=== PATIENT | female | born 1970 | race Caucasian/White ===

== ENCOUNTER 2018-03-28 00:54 | Outpatient (CLI) | payer MEDICAID, SELFPAY ==
--- NOTE | 2018-03-28 11:13 | DI.MAMMO_ITS ---
SYMPTOMS/DIAGNOSIS: SCREENING, Z12.31 MAMMOGRAM: Mammograms were interpreted according to the usual protocol including computer analysis with CAD system, tomosynthesis and C view imaging. The breast tissue is of moderate radiodensity. There is no mass. There are no suspicious calcifications. There has been no significant interval change when compared with prior images. SUMMARY: No evidence of malignancy, Category I, yearly screening mammography is recommended. Breast density Category B. SA ASSESSMENT OF FINDINGS: Negative. Category 1. Patient will receive a letter notifying them of these results. BI-RADS category B. There are scattered areas of fibroglandular density.
== END 2018-03-28 01:14 ==
PROVIDERS: PCP Nurse Practitioner Family; Visit Provider Nurse Practitioner Family
DX: Z12.31 Encounter for screening mammogram for malignant neoplasm of breast (principal)
CPT/HCPCS: 77063; 77067

== ENCOUNTER 2019-01-22 02:26 | Outpatient (CLI) | payer OTHER, SELFPAY ==
[2019-01-22 12:32] LABS: Hemoglobin A1C 5.5 % (4.5-6.2)
[2019-01-22 12:48] LABS: ALT 30 U/L (12-78); AST 20 U/L (15-37); Albumin 3.8 g/dL (3.4-5.0); Alkaline Phosphatase 62 U/L (46-116); Anion Gap 10.4 mmol/L (3-11); BUN 10 mg/dL (7-18); Bilirubin, Total 0.5 mg/dL (0.2-1.0); CO2 24.6 mmol/L (21.0-32.0); CREATININE 0.77 mg/dL (0.55-1.02); Calcium 8.6 mg/dL (8.5-10.1); Calculated LDL 79 mg/dL; Chloride 108 mmol/L (98-107); Cholesterol 116 mg/dL (50-200); Glucose 100 mg/dL (70-100); HDL Cholesterol 29 mg/dL (40-60); Potassium 4.1 mmol/L (3.5-5.1); Sodium 143 mmol/L (136-145); Total Protein 6.5 g/dL (6.4-8.2); Triglyceride 43 mg/dL (30-150)
== END 2019-01-22 02:46 ==
PROVIDERS: PCP Nurse Practitioner Family; Visit Provider Nurse Practitioner Family
DX: E78.5 Hyperlipidemia, unspecified (principal)
CPT/HCPCS: 36415; 80053; 80061; 83721; 83036

== ENCOUNTER 2019-03-01 13:30 | Outpatient (CLI) | payer OTHER, SELFPAY ==
--- NOTE | 2019-03-01 13:15 | DI.RAD_ITS ---
EXAM: XR KNEE LT 3V AP,LAT,MY INDICATION: X 1 MO LEFT KNEE PAIN,M25.562 COMPARISON: No exams were available for comparison TECHNIQUE: 2D digital imaging was performed. FINDINGS: The bony structures are normally mineralized. Joint space is intact. I could not exclude a tiny joint effusion. There is no evidence of a fracture or dislocation.
== END 2019-03-01 13:50 ==
PROVIDERS: PCP Nurse Practitioner Family; Visit Provider Nurse Practitioner Family
DX: M25.562 Pain in left knee (principal)
CPT/HCPCS: 73562

== ENCOUNTER 2019-04-05 01:06 | Outpatient (CLI) | payer OTHER, SELFPAY ==
--- NOTE | 2019-04-05 07:25 | DI.MAMMO_ITS ---
EXAM: MG MAMMO SCREENING CLINICAL HISTORY: screening,z12.39, preventive health TECHNIQUE: Mammograms were interpreted according to the usual protocol including computer analysis w [facility] CAD system, tomosynthesis and C-view imaging.to the usual protocol including computer analysis wi CAD system, tomosynthesis and C-view imaging. FINDINGS: The breasts are of moderate density with fairly symmetrical distribution of fibroglandular tissue. N o dominant mass or clumped microcalcification is identified in either breast. Current examination is compared with previous examinations including March 2018 and there has been no gross interval soni ge in appearance in comparison with the previous studies. IMPRESSION: No specific evidence of malignancy at this time. Routine screening examinations are suggested at yea rly intervals due to the family history of breast carcinoma. Category 1. Breast density, category B. BI-RADS Cat 1 - Negative. Breast Density - Category B - Scattered areas of fibroglandular density.
== END 2019-04-05 01:26 ==
PROVIDERS: PCP Nurse Practitioner Family; Visit Provider Nurse Practitioner Family
DX: Z12.31 Encounter for screening mammogram for malignant neoplasm of breast (principal); Z80.3 Family history of malignant neoplasm of breast
CPT/HCPCS: 77063; 77067

== ENCOUNTER 2019-08-02 10:04 | Emergency (ER) | payer OTHER, SELFPAY ==
[2019-08-02 10:09] VITALS: BP 158/79; PULSE 88; RESP 18; TEMP 36.6; O2SAT 100
--- NOTE | 2019-08-02 10:15 | DI.RAD_ITS ---
EXAM: XR ELBOW LT COMPLETE INDICATION: struck posterior aspect one week ago. COMPARISON: No exams were available for comparison TECHNIQUE: 2D digital imaging was performed. FINDINGS: No fracture or dislocation is seen. No joint effusion is identified. There are no significant dege nerative changes. IMPRESSION: Negative left elbow. DATA REPOSITORY: RADIATION DOSE DELIVERED:
--- NOTE | 2019-08-02 10:19 | ED.GENADUL_ITS ---
Discharge Plan Disposition Patient Disposition: HOME Condition: Good Discharge Details Chief Complaint: Orthopedic Clinical Impression: Neuritis of left ulnar nerve, Medial epicondylitis of left elbow Primary Care Provider: Coreen Stevenson ED Provider: Olya Porter Home Meds and New Rx's Prescriptions: Continued triamcinolone acetonide 0.1 % cream 1 applic TP BID PRN (Reason: eczema) Qty: 80 RF: 4 norethindrone acetate [Aygestin] 5 mg tablet 2.5 mg PO DAILY Qty: 45 RF: 4 rosuvastatin 10 mg tablet 10 mg PO DAILY Qty: 90 RF: 4 atenolol 25 mg tablet 25 mg PO DAILY Qty: 90 RF: 4 Discharge Instructions Instructions: Cubital Tunnel Syndrome (ED), Tendinitis (ED) Additional Instructions: Encourage rest, ice, elevation. Tylenol and ibuprofen as needed for discomfort. Please continue with brace will pain persist. Please take Aleve twice daily to help with the inflammation for the next week. Follow-up with primary care in the next 1 to 2 weeks if not improving. If you develop new or worsening symptoms please seek care urgently once again. Referrals: Coreen Stevenson, WIND T[employer]NEL ENGINEER [Primary Care Provider] - Medical Decision Making Patient is a pleasant 49-year-old [id number] female presents today with chief complaint of left elbow pain. She reports that 1 week ago she was at work when she stumbled backwards and struck her left elbow against a metal railing. Since that time, she been having medial sided pain that runs some ulnar-sided hand. States that this radiating discomfort is been bothering her the most. She continues to work and has not had any limitation in her ADLs. She denies any fevers or chills. Denies other injury the time of the incident. On exam, patient is resting comfortably. She has full range of motion with no notable deformity or swelling. She does have discomfort with full flexion of the elbow. Has discomfort with supination pronation against resistance. Sharp and dull testing is intact. Obstetric Anaesthetist strength is intact. She is tender directly over the ulnar nerve in the ulnar nerve distribution of the arm and hand. Symptoms are most consistent with ulnar neuritis and tennis elbow. However, given the traumatic onset and persistent posterior pain, I do feel that imaging is appropriate. FINDINGS: No fracture or dislocation is seen. No joint effusion is identified. There are no significant degenerative changes. IMPRESSION: Negative left elbow. Discussed these findings with the patient. Advised anti-inflammatory for the next week. Encourage rest, ice, elevation. Advised follow-up with primary care next 1 to 2 weeks if not improving. We will fit her with a wrist brace as pain is much worse with movement of the wrist. All of her questions and concerns were addressed and she is agreement this plan. HPI General Mode of arrival: ambulatory . Date/Time Provider Initiated Documentation: 08/02/19 10:07 . Limitations to Documentation: no limitations . Information obtained by: patient and RN notes reviewed . History of Present Illness 49 year old F presents to the emergency department with the chief complaint of left elbow pain, described as mild, with intensity rated at 2. Quality is described as aching, and is localized to the left and upper extremity. Patient extremity (into ulnar side of hand). Patient started experiencing this week(s) (1) and it has been constant. Immobilization improves symptom(s), Movement worsens symptoms . Patient notes no other symptoms.. Patient did receive the following treatments prior to arrival, none Related Data Home Medications Medication Instructions Recorded Confirmed triamcinolone acetonide 0.1 % 1 applic TP BID PRN #80 gm 08/29/18 08/02/19 topical cream norethindrone acetate 5 mg tablet 2.5 mg PO DAILY #45 tab-cap 11/15/18 08/02/19 rosuvastatin 10 mg tablet 10 mg PO DAILY #90 tab 11/15/18 08/02/19 atenolol 25 mg tablet 25 mg PO DAILY #90 tab-cap 02/25/19 08/02/19 Previous Rx's Medication Instructions Recorded triamcinolone acetonide 0.1 % 1 applic TP BID PRN #80 gm 08/29/18 topical cream norethindrone acetate 5 mg tablet 2.5 mg PO DAILY #45 tab-cap 11/15/18 rosuvastatin 10 mg tablet 10 mg PO DAILY #90 tab 11/15/18 atenolol 25 mg tablet 25 mg PO DAILY #90 tab-cap 02/25/19 Allergies Allergy/AdvReac Type Severity Reaction Status Date / Time No Known Allergies Allergy Unverified 08/02/19 10:13 General Stated Complaint: Orthopedic MARIN: 3 Review of Systems Constitutional Constitutional: Reports as per HPI, Denies chills, Denies fever(s), Denies headache(s) and Denies weakness ENT Ears, Nose, Mouth, and Throat: Denies headache(s) Cardiovascular Cardiovascular: Reports as per HPI Respiratory Respiratory: Reports as per HPI and Denies cough Musculoskeletal Musculoskeletal: Reports as per HPI and Denies tingling Integumentary/Breasts Skin/Breast: Reports as per HPI, Denies rash and Denies wounds Neurologic Neurologic: Reports as per HPI, Denies headache(s), Denies tingling, Denies paresthesias and Denies weakness [facility] Medical History Atopic dermatitis (Chronic) Cigarette smoker (Chronic) Essential hypertension (Chronic) Heavy menstrual bleeding (Chronic) Hyperlipidemia (Chronic) Surgical History History of bilateral tubal ligation (Acute ~1991) Family History (Updated 03/01/19 @ 13:55 by Coreen Stevenson NP) Mother Hyperlipidemia Alcohol abuse Depression Hypertension Father Heart disease Hyperlipidemia Stroke Alcohol abuse Myocardial infarction x 4 Hypertension Type 2 diabetes mellitus COPD (chronic obstructive pulmonary disease) Sister Alcohol abuse Substance abuse Hypertension Sister Alcohol abuse Hypertension Brother Substance abuse Daughter Anxiety Daughter Depression Paternal Grandfather No problems noted. 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 Pets and animals: No Sexually active: Yes Do you think of yourself as: straight/heterosexual Current gender identity: female What is your relationship status?: How often do you talk on the phone with friends or family?: three or more times per week How often do you get together with friends or relatives?: decline to answer How often do you attend judaism or mormonism services?: decline to answer Do you belong to any clubs or organized social groups?: no Panel score (0-1 are the most socially isolated patients): 2 What type of physical activity do you participate in: decline to answer Duration: decline to answer Frequency: decline to answer Estela/Baptist: None Special estela needs: No Seatbelt use: always Drive intox or ride w/intox commercial driver's license driver: No Do you feel safe at home: Yes Do you feel safe in your relationship?: Yes Female Reproductive History Menstrual control method: permanent sterilization (BTL) History History 2 Para 2 Hx # Term Pregnancies Multiple births Hx # Pregnancies Ectopic pregnancies AB induced Hx Number of Living Children 2 AB spontaneous Exam Const General: cooperative, healthy appearing, comfortable, no acute distress, well developed and well groomed Nutritional Appearance: average body habitus and well nourished Orientation: alert and awake Resp Effort & Inspection: normal respiratory effort, able to speak in complete sentences and no respiratory distress Cardio Rate: regular rate Rhythm: regular rhythm Skin General skin exam: no rashes or lesions noted Lesions: no lesions Rashes: no rashes Trauma: no lacerations or abrasions Neuro General: alert and awake Cognition: normal cognition Speech: speech normal Gait: normal gait Motor: muscle tone normal throughout Sensory Exam: no sensory deficits noted Extrem General: normal to inspection, full ROM and normal capillary refill Left upper extremity: normal to inspection, full ROM, normal capillary refill, no joint enlargement, elbow/forearm Details: normal to inspection, tenderness Location: of the olecranon and of the medial epicondyle, normal ROM and distal pulses intact; no swelling, no unusual warmth, no abrasions, no lacerations, no ecchymosis, no crepitus and no deformity and wrist Details: normal to inspection and normal ROM; no tenderness and no swelling Psych Appearance: grossly normal and well kempt Mental Status: mental status grossly normal Speech and Movement: speech and movement normal Course Vital Signs Vital signs: Vital Signs Temperature 36.6 C 08/02/19 10:09 Pulse 88 08/02/19 10:09 Respiratory Rate 18 08/02/19 10:09 Blood Pressure 158/79 H 08/02/19 10:09 Pulse Oximetry 100 08/02/19 10:09 Temperature 36.6 C 08/02/19 10:09 Temperature Source Temporal Artery Scan 08/02/19 10:09 Pulse 88 08/02/19 10:09 Respiratory Rate 18 08/02/19 10:09 Respiratory Effort Non-Labored 08/02/19 10:16 Blood Pressure 158/79 H 08/02/19 10:09 Blood Pressure Position Sitting 08/02/19 10:09 Pulse Oximetry 100 08/02/19 10:09 Oxygen Delivery Method Room Air 08/02/19 10:09 Oxygen Flow Rate 0 08/02/19 10:09 Pain Level 2 08/02/19 10:09
--- NOTE | 2019-08-02 15:39 | PDOC.ERCMPRO ---
- If Service Date Differs Date of service: 08/02/19 Time of Service: 15:39 Care Management Progress Note CM meets with patient to assist her in completing an insurance claim form and in having it signed by ED provider.
== END 2019-08-02 11:29 | disposition home or self-care (01) ==
PROVIDERS: Emergency Provider Physician Assistant; PCP Nurse Practitioner Family
DX: M77.02 Medial epicondylitis, left elbow (principal); G56.22 Lesion of ulnar nerve, left upper limb; I10 Essential (primary) hypertension
CPT/HCPCS: 99283; 73080; L3908

== ENCOUNTER 2020-03-09 13:11 | Outpatient (REF) | payer OTHER, SELFPAY ==
[2020-03-09 14:29] LABS: Anion Gap 6.8 mmol/L (3-11); BUN 11 mg/dL (7-18); CO2 29.2 mmol/L (21.0-32.0); CREATININE 0.69 mg/dL (0.55-1.02); Calcium 9.2 mg/dL (8.5-10.1); Calculated LDL 92 mg/dL (<100); Chloride 108 mmol/L (98-107); Cholesterol 137 mg/dL (<200); Glucose 70 mg/dL (74-106); HDL Cholesterol 36 mg/dL (40-60); Potassium 4.4 mmol/L (3.5-5.1); Sodium 144 mmol/L (136-145); TSH 0.79 uIU/mL (0.36-3.74); Triglyceride 48 mg/dL (<150)
[2020-03-09 14:49] LABS: FREE T4 1.14 ng/dL (0.76-1.46)
== END 2020-03-09 13:31 ==
LOC: LBN 13:11
PROVIDERS: PCP Nurse Practitioner Family; Visit Provider Nurse Practitioner Family
DX: I10 Essential (primary) hypertension (principal); R53.83 Other fatigue; E78.5 Hyperlipidemia, unspecified
CPT/HCPCS: 80048; 80061; 84439; 84443

== ENCOUNTER 2020-04-06 00:34 | Outpatient (CLI) | payer OTHER, SELFPAY ==
--- NOTE | 2020-04-06 06:30 | DI.MAMMO_ITS ---
EXAM: MG MAMMO SCREENING CLINICAL HISTORY: screening,Z12.39 TECHNIQUE: Mammograms were interpreted according to the usual protocol including computer analysis w [employer] CAD system, tomosynthesis and C-view imaging. COMPARISON: FINDINGS: The breasts are heterogeneously dense. There is no dominant mass or clumped microcalcification ident ified in either breast. The current examination is compared with previous examinations including Mar and there has been no gross interval change in appearance in comparison with the prior stud ies. IMPRESSION: No specific evidence of malignancy at this time. Routine screening examinations are suggested at yea rly intervals in this age group according to the ACS ACR guidelines. BI-RADS Category 1 - Negative Breast Density - Category C - Heterogeneously dense
== END 2020-04-06 00:54 ==
PROVIDERS: PCP Nurse Practitioner Family; Visit Provider Nurse Practitioner Family
DX: Z12.31 Encounter for screening mammogram for malignant neoplasm of breast (principal)
CPT/HCPCS: 77063; 77067

== ENCOUNTER 2020-04-10 15:59 | Outpatient (REF) | payer OTHER, SELFPAY ==
[2020-04-10 17:24] LABS: Abs Immature Grans 0.01 10^3/uL (0.0-0.06); Absolute Basophil Count 0.07 10^3/uL (0.0-0.2); Absolute Eosinophil Count 0.14 10^3/uL (0.0-0.7); Absolute Monocyte Count 0.54 10^3/uL (0.1-0.8); Absolute Neutrophil Count 4.58 10^3/uL (1.2-6.7); Basophils % 0.9; Eosinophils % 1.7; HCT 45.5 % (36.0-46.0); HGB 15.1 g/dL (11.2-15.7); Immature Grans % 0.1; Lymphocytes % 34.4; MCH 32.5 pg (27.0-33.0); MCHC 33.2 % (32.0-36.0); MCV 97.8 fL (80-95); Monocytes % 6.6; Neutrophils % 56.3; Nucleated RBC 0 %; Platelet Count 241 10^3/uL (130-400); RBC 4.65 10^6/uL (3.93-5.22); RDW 12.1 % (11.7-14.6); RDW-SD 43.8 fL; WBC 8.14 10^3/uL (4.4-10.8)
== END 2020-04-10 16:19 ==
LOC: LBN 15:59
PROVIDERS: PCP Nurse Practitioner Family; Visit Provider Nurse Practitioner Family
DX: R10.13 Epigastric pain (principal)
CPT/HCPCS: 85025

== ENCOUNTER 2020-04-13 02:18 | Outpatient (CLI) | payer OTHER, SELFPAY ==
--- NOTE | 2020-04-13 06:45 | DI.US_ITS ---
EXAM: US ABDOMEN CLINICAL HISTORY: Epigastric pain x 1mo, r/o charity,r10.13 TECHNIQUE: Ultrasound abdomen performed using standard protocol. COMPARISON: No exams were available for comparison FINDINGS: ABDOMINAL AORTA AND IVC: Visualized portions normal caliber. PANCREAS: Normal where visualized. LIVER: Normal. Hepatopedal flow in the Portal Vein. The liver measures 11.9 cm in length. GALLBLADDER: No evidence of cholelithiasis. No evidence of wall thickening. No pericholecystic fluid identified. Artifact is seen in the wall consistent sonographically with adenomyomatosis. BILIARY SYSTEM: Common bile duct measures < 7 mm. No intrahepatic biliary ductal dilation. SHOEMAKER'S SIGN: Negative. KIDNEYS: Kidneys are symmetric in size. No evidence of renal calculi. No evidence of hydronephrosis. No renal mass or cyst identified. SPLEEN: Not enlarged. ASCITES: None seen. IMPRESSION: 1. No evidence of cholelithiasis or biliary ductal dilatation. 2. Reverberation artifact in the wall of the gallbladder consistent sonographically with adenomyomato sis. DATA REPOSITORY:
== END 2020-04-13 02:38 ==
PROVIDERS: PCP Nurse Practitioner Family; Visit Provider Nurse Practitioner Family
DX: R10.13 Epigastric pain (principal)
CPT/HCPCS: 76700

== ENCOUNTER 2020-04-27 03:39 | Outpatient (CLI) | payer OTHER, SELFPAY ==
[2020-04-28 11:41] LABS: SARS-CoV-2 RNA Not Detected (NotDetected); SARS-CoV-2 RNA Source Nasal/Nares
== END 2020-04-27 03:59 ==
PROVIDERS: PCP Nurse Practitioner Family; Visit Provider Surgery
DX: Z01.818 Encounter for other preprocedural examination (principal)
CPT/HCPCS: U0003

== ENCOUNTER 2020-04-30 05:56 | Day surgery (SDC) | payer OTHER, SELFPAY ==
[2020-04-30 06:10] VITALS: BP 116/88; PULSE 75; RESP 18; TEMP 36.7; O2SAT 98
[2020-04-30] MEDS: Lactated Ringers 1,000 ML 80 ML IV (06:35)
--- NOTE | 2020-04-30 08:03 | BOWEL_PTH ---
PATIENT: Tasha Mcmahan LOC: [facility] U#:[id number] AGE/SX: 50/F ROOM: RE04/30/[address]: Leah Kumar : 1970 BED: DIS: 04/30/2020 SPEC #: [id number] RECD: 04/30/20 12:52 STATUS: JENNIFER MEDRANO #: [id number] MARLEE: 04/30/20 08:[address]: Leah Kumar DEPT: Surgical Specimen RECD BY: Fawn Hardin ENTERED: 04/30/20 12:58 SP TYPE: Bowel OTHR DR: Coreen Stevenson, YELITZA Tissues: 1 - BIOPSY BOWEL 2 - STOMACH BIOPSY 3 - STOMACH BIOPSY 4 - ESOPHAGUS BIOPSY 5 - ESOPHAGUS BIOPSY 6 - BIOPSY BOWEL 7 - BIOPSY BOWEL 8 - BIOPSY BOWEL 9 - BIOPSY BOWEL 10 - BIOPSY BOWEL Procedures: GROSS AND MICRO LEVEL 4 Comments: [id number]
--- NOTE | 2020-04-30 08:33 | W.PM.DSUDISC ---
Discharge Plan Disposition Patient Disposition: HOME Condition: Good Discharge Details Reason For Visit: EGD and CE Attending Provider: Leah Kumar Primary Care Provider: Coreen Stevenson Home Meds and New Rx's Prescriptions: Continued Chantix Starting Month Box 0.5 mg (11)- 1 mg (42) tablets,dose pack See Rx Instructions PO DIRECTED Qty: 53 RF: 0 omeprazole 40 mg capsule,delayed release(DR/EC) 40 mg PO DAILY Qty: 90 RF: 0 triamcinolone acetonide 0.1 % cream 1 applic TP BID PRN (Reason: eczema) Qty: 80 RF: 4 rosuvastatin 10 mg tablet 10 mg PO DAILY Qty: 90 RF: 4 atenolol 25 mg tablet 25 mg PO DAILY Qty: 90 RF: 4 sucralfate 1 gram tablet 1 g PO Q6H Qty: 336 RF: 0 Discontinued bisacodyl [Dulcolax (bisacodyl)] 5 mg tablet,delayed release (DR/EC) 5 mg PO ONCE Qty: 4 RF: 0 polyethylene glycol 3350 17 gram/dose powder 17 g PO ONCE Qty: 238 RF: 0 Discharge Instructions Additional Instructions: Findings: hiatal hernia esophagitis normal colon Continue with lifestyle modifications: no alcohol, tobacco products, Aspirin or NSAID's (ibuprofen, Motrin, Naprosyn, aleve, etc), soda pop/any carbonated beverages, caffeine (including tea & chocolate), and acidic foods, (tomatoes, citrus, onions, peppermints) spicy foods. Do not lie down for 30 minutes after eating, and do not eat 2 hours prior to bedtime. Avoid wearing tight fitting clothing/ belts Follow up:2-3 wks Please call if you develop: fevers >101.5 Nausea or Vomiting Abdominal pain that is not transient DAY SURGERY UNIT POST COLONOSCOPY INSTRUCTIONS 1. Because there will be medication in your system for the next 24 hours, you may feel a little sleepy. Your coordination will be affected. Therefore: a. Do not drive or operate dangerous equipment for 24 hours. b. Do not drink alcohol beverages for 24 hours (not even beer). c. Plan to go home and rest for the day. 2. Generally there are no restrictions on your activity after a day or so has gone by, but you may feel a bit fatigued for a few days. 3 After you arrive home you may have a light meal and return to a normal diet as you can tolerate it without feeling sick to your stomach. 4. After surgery, you may feel pain or discomfort. This should be only transient, but if it persists please contact your doctor. 5. If there are any questions regarding the findings of your procedure, please feel free to contact your doctor. 6. If you are unable to contact your doctor with a problem, contact the hospital at [phone]. 7. Continue all your regular medications unless directed otherwise. I understand the above instructions and have no questions. Signature of Patient or Responsible Adult Escort Date/Time Name of Responsible Adult Escort Signature of Nurse Date/Time Activity:: no lifting over 20#'s or strenuous activity x 24hrs Diet:: small light meals x 24 hrs Discharge Orders Discharge Orders: Discharge Order (Routine); Ordered 04/30/20 Ordered By: Leah Kumar DS: Diagnosis Discharge Diagnosis (1) Acute diarrhea: Status: Acute (2) Postprandial RUQ pain: Status: Acute (3) Cigarette smoker: Status: Chronic (4) GERD (gastroesophageal reflux disease): Status: Chronic (5) Erosive esophagitis: Status: Acute
--- NOTE | 2020-04-30 08:37 | COLE_ITS ---
Date of service: 04/30/20 Time of Service: 08:37 Colonoscopy Report Date of procedure: 04/30/20 Pre-op diagnosis general: ruq pain/GERD Post-op diagnosis procedure note: other (hiatal hernia/esophagitis-poss barett's, path pd ) Procedure: egd + Bx Surgeon: Leah Kumar Anesthesia proc note operative: GETA Estimated blood loss (mL): 1 Pathology: other Complications: None Disposition: PACU Procedure Description: After informed consent was obtained the patient was take to the procedure room and placed in a supine position. Monitors were applied and a time out was done. The patients name, date of , procedure type, allergies to medications and metal in their body was reviewed. A bite block was placed and the patient was sedated. Once sedated and comfortable the gastroscope was advanced through the oropharynx which was grossly normal into the esophagus. The proximal and mid-esophagus were nl. In the distal esophagus there was irrgular/edematous and x3 ttongues of what appears to be arrieta's- 2cm each noted. The scope was advanced into the stomach and through the pylorus into the 3rd portion of the duodenum. The duodenum was noted to be nl. Biopsies were done. The scope was retracted back into the stomach and biopsies were done to rule out H. pylori. There were ulcers/polyp/gastritis. The scope was retroflexed. The cardia and fundus were noted to be normal. There small a hiatal hernia noted. The scope was retracted back into the esophagus and biopsies were done of the GE junction to rule out Arrieta's. The Z line was regular. The GE junction was at 37-38 cm. The scope was removed and the patient was woken up and taken back to [facility] in stable condition. Follow up:
--- NOTE | 2020-04-30 08:40 | COLE_ITS ---
Date of service: 04/30/20 Time of Service: 08:40 Colonoscopy Report Date of procedure: 04/30/20 Pre-op diagnosis general: CRC screening/chronic diarrhea Post-op diagnosis procedure note: same Procedure: bx taken Surgeon: Leah Kumar Anesthesia proc note operative: GETA Estimated blood loss (mL): 1 Pathology: other Disposition: same day Prep: Miralax/Dulcolax Retraction Time: 10 mins Procedure Description: After informed consent was obtained the patient was taken to the procedure room and placed in a left decubitous position. Monitors were applied and a time out was done. The patients name, date of , procedure, allergies to medications and metal in their body was reviewed. The patient was then sedated. Once sedated and comfortable a rectal exam was done. External exam: hemorrdial tags. Internal exam revealed a normal sphincter tone and no palpable masses. The scope was then introduced and retrofelexed. No internal hemorrhoids were identified. The scope was then advanced to the cecum w/out difficulty. The TI and appendiceal orifice were identified. The prep was good. The scope was then slowly retracted over 10 minutes back into the rectum. no polyps/avm's/divert icula. bx were done- 90/790/50/20cm & rectum. The scope was removed and the patient was woken up and taken back to Same day surgery in stable condition. The patient tolerated the procedure well and there were no immediate complications. Follow up: The patient should follow up in 10 years unless they develop changes in bowel habits or other new gastrointestinal complaints.
[2020-04-30 08:55] VITALS: BP 135/83; PULSE 62; RESP 16; TEMP 36.4; O2SAT 100
--- NOTE | 2020-05-04 20:37 | ENDO_ITS ---
Date of service: 04/30/20 Time of Service: 11:38 Endoscopy Report DATE OF PROCEDURE: 04/30/20 PRE-OP DIAGNOSIS: RUQ pain/GERD POST-OP DIAGNOSIS: other (hiatal hernia/esophagitis-poss Barett's, path pd.) SURGEON: Leah Kumar ANESTHESIA: GETA ESTIMATED BLOOD LOSS: 1 PATHOLOGY: other COMPLICATIONS: None DISPOSITION: same day FINDINGS: After informed consent was obtained the patient was take to the procedure room and placed in a supine position. Monitors were applied and a time out was done. The patients name, date of , procedure type, allergies to medications and metal in their body was reviewed. A bite block was placed and the patient was sedated. Once sedated and comfortable the gastroscope was advanced through the oropharynx which was grossly normal into the esophagus. The proximal and mid-esophagus were nl. In the distal esophagus there was irrg ular/edematous and x3 ttongues of what appears to be arrieta's- 2cm each noted. The scope was advanced into the stomach and through the pylorus into the 3rd portion of the duodenum. The duodenum was noted to be nl. Biopsies were done. The scope was retracted back into the stomach and biopsies were done to rule out H. pylori. There were ulcers/polyp/gastritis. The scope was retroflexed. The cardia and fundus were noted to be normal. There small a hiatal hernia noted. The scope was retracted back into the esophagus and biopsies were done of the GE junction to rule out Arrieta's. The Z line was regular. The GE junction was at 37-38 cm. The scope was removed and the patient was woken up and taken back to [facility] in stable condition.
== END 2020-04-30 09:30 | disposition home or self-care (01) ==
PROVIDERS: PCP Nurse Practitioner Family; Visit Provider Surgery
PROC: (CPT 45380; principal; 2020-04-30 07:30)
DX: Z12.11 Encounter for screening for malignant neoplasm of colon (principal); K20.90 Esophagitis, unspecified without bleeding; K44.9 Diaphragmatic hernia without obstruction or gangrene; I10 Essential (primary) hypertension; E78.5 Hyperlipidemia, unspecified; F17.210 Nicotine dependence, cigarettes, uncomplicated
CPT/HCPCS: 45380; 43239; 88305; J2001; J2405

== ENCOUNTER 2020-05-06 00:34 | Outpatient (CLI) | payer OTHER, SELFPAY ==
--- NOTE | 2020-05-06 06:45 | DI.NM_ITS ---
EXAM: NM HEPATOBILIARY CCK GRP CLINICAL HISTORY: nausea/bloating/nl US,POSTPRANDIAL RUQ PAIN,R10.11,R19.7. COMPARISON: No exams were available for comparison EXAMINATION: Hepatic biliary scan was performed with intravenous infusion of 4.8 millicuries of tech netium 99 labeled mebrofenin. 1.4 micrograms of cholecystokinin was administered following identification of gallbladder uptake. FINDINGS: Following infusion of radiopharmaceutical, there is prompt homogeneous hepatic uptake and prompt upta ke in the gallbladder, bile ducts,, and small intestine. Following injection of cholecystokinin, the gallbladder ejection fraction is calculated at 86 percent which is in the normal range. IMPRESSION: Normal CCK HIDA scan.
[2020-05-06] MEDS: Sincalide 5 MCG VIAL 1.4 MCG IJ (11:38)
== END 2020-05-06 00:54 ==
PROVIDERS: PCP Nurse Practitioner Family; Visit Provider Surgery
DX: R10.11 Right upper quadrant pain (principal); R19.7 Diarrhea, unspecified
CPT/HCPCS: 78227

== ENCOUNTER 2020-07-12 12:45 | Emergency (ER) | payer OTHER, SELFPAY ==
[2020-07-12 12:51] VITALS: BP 143/73; PULSE 91; RESP 20; TEMP 36.6; O2SAT 98
--- NOTE | 2020-07-12 13:15 | DI.RAD_ITS ---
EXAM: XR ANKLE RT COMPLETE CLINICAL HISTORY: Fall, pain. TECHNIQUE: 2D digital imaging was performed. COMPARISON: No exams were available for comparison FINDINGS: BONES: No acute fracture is present. No bony destructive lesion is seen. JOINTS: The ankle mortise is normally aligned. SOFT TISSUE: Normal. IMPRESSION: Unremarkable radiographs of the right ankle. DATA REPOSITORY: RADIATION DOSE DELIVERED:
--- NOTE | 2020-07-12 13:16 | W.ED.GENAD ---
Discharge Plan Disposition Patient Disposition: HOME Condition: Stable Discharge Details Clinical Impression: Right ankle sprain Primary Care Provider: Coreen Stevenson ED Provider: Megan Perry Home Meds and New Rx's Prescriptions: Continued omeprazole 20 mg capsule,delayed release(DR/EC) 40 mg PO DAILY Qty: 180 RF: 4 Chantix Starting Month Box 0.5 mg (11)- 1 mg (42) tablets,dose pack See Rx Instructions PO DIRECTED Qty: 53 RF: 0 triamcinolone acetonide 0.1 % cream 1 applic TP BID PRN (Reason: eczema) Qty: 80 RF: 4 rosuvastatin 10 mg tablet 10 mg PO DAILY Qty: 90 RF: 4 atenolol 25 mg tablet 25 mg PO DAILY Qty: 90 RF: 4 sucralfate 1 gram tablet 1 g PO Q6H Qty: 336 RF: 0 Discharge Instructions Instructions: Ankle Sprain (ED), Acute Wounds (ED) Additional Instructions: Rest, ice, compression, elevation. Wear splint to ankle for comfort. Keep wound clean and dry. Return for any signs of infection including increased redness, swelling, drainage, fever or any concerns. Follow up with primary care provider in 3-5 days. Return to ED sooner if any worsening or concerns. Increase oral fluids. Please take Tylenol or Ibuprofen with food every 4-6 hours as needed for pain and swelling. Stand Alone Forms: Work Release Referrals: Coreen Stevenson NP [Primary Care Provider] - Discharge Data Discharge Date/Time-TO BE ENTERED AT DEPARTURE: 07/12/20 14:21 Medical Decision Making 50-year-old female presents with mechanical fall around 6:00 this morning. Patient states she lost her footing twisted her right ankle fell down landing on her left knee. She sustained an abrasion noted to her left knee, she did go to work after fall. She applied an Robel wrap prior to arrival to her right ankle. She is complaining of lateral malleolus tenderness with palpation. No obvious deformity noted. She does have some swelling noted to the lateral malleolus. She has an abrasion noted to the anterior left leigh. No crepitus palpated to her left knee she has been ambulatory on knee since injury. She reports being up-to-date on her tetanus shot within the last 5 to 10 years. She did take some Tylenol around 6:00 this morning. Imaging protocol: XR Right ankle. Views: 3 or more views. COMPARISON: No relevant prior studies available. FINDINGS: Bones/joints: There is no evidence of acute fracture.There is no evidence of malalignment or dislocation. Soft tissues: Normal. IMPRESSION: There is no evidence of acute fracture.There is no evidence of malalignment or dislocation. Thank you for allowing us to participate in the care of your patient. Dictated and Authenticated by: Ania Diaz MD Patient was placed in a stirrup air splint to her ankle wound care was performed by technical staff assistant to the abrasion to her left knee. Discussed home care including rest ice compression elevation. Patient verbalized understanding. She remained hemodynamically stable throughout stay. This text was generated using Loc[employer] dictation system, please disregard any oddities of phrase or misspellings. HPI General Mode of arrival: ambulatory. Date/Time Provider Initiated Documentation: 07/12/20 12:58. Limitations to Documentation: no limitations. Information obtained by: patient. HPI Narrative: 50-year-old female presents with mechanical fall around 6:00 this morning. Patient states she lost her footing twisted her right ankle fell down landing on her left knee. She sustained an abrasion noted to her left knee, she did go to work after fall. She applied an Robel wrap prior to arrival to her right ankle. She is complaining of lateral malleolus tenderness with palpation. No obvious deformity noted. She does have some swelling noted to the lateral malleolus. She has an abrasion noted to the anterior left leigh. No crepitus palpated to her left knee she has been ambulatory on knee since injury. She reports being up-to-date on her tetanus shot within the last 5 to 10 years. She did take some Tylenol around 6:00 this morning. Related Data Home Medications Medication Instructions Recorded Confirmed triamcinolone acetonide 0.1 % 1 applic TP BID PRN #80 gm 09/02/19 07/12/20 topical cream atenolol 25 mg tablet 25 mg PO DAILY #90 tab-cap 01/27/20 07/12/20 rosuvastatin 10 mg tablet 10 mg PO DAILY #90 tab 01/27/20 07/12/20 sucralfate 1 gram tablet 1 g PO Q6H #336 tab 04/16/20 07/12/20 omeprazole 20 mg capsule,delayed 40 mg PO DAILY #180 cap 05/11/20 07/12/20 release varenicline 0.5 mg (11)-1 mg (42) See Rx Instructions PO DIRECTED 05/11/20 05/13/20 tablets in a dose pack #53 dose pk Previous Rx's Medication Instructions Recorded triamcinolone acetonide 0.1 % 1 applic TP BID PRN #80 gm 09/02/19 topical cream atenolol 25 mg tablet 25 mg PO DAILY #90 tab-cap 01/27/20 rosuvastatin 10 mg tablet 10 mg PO DAILY #90 tab 01/27/20 sucralfate 1 gram tablet 1 g PO Q6H #336 tab 04/16/20 omeprazole 20 mg capsule,delayed 40 mg PO DAILY #180 cap 05/11/20 release varenicline 0.5 mg (11)-1 mg (42) See Rx Instructions PO DIRECTED 05/11/20 tablets in a dose pack #53 dose pk Allergies Allergy/AdvReac Type Severity Reaction Status Date / Time No Known Allergies Allergy Unverified 07/12/20 13:34 General Stated Complaint: Orthopedic MARIN: 4 Review of Systems Narrative: Constitutional: Negative for weight loss, alert and oriented, well groomed, normal body habitus, appears comfortable. HEENT: Denies trauma, headaches, blurry vision, nasal discharge, sore throat, trouble swallowing. All systems reviewed & are unremarkable except as noted in HPI and below Musculoskeletal Musculoskeletal: Reports arthralgias and Reports joint swelling (Right ankle, right knee abrasion) [facility] Medical History Abnormal uterine bleeding Acute diarrhea Atopic dermatitis Cigarette smoker Erosive esophagitis Essential hypertension GERD (gastroesophageal reflux disease) Hyperlipidemia Postprandial RUQ pain Surgical History History of bilateral tubal ligation (~1991) History of colonoscopy (~04/30/20) Stoiber, normal History of esophagogastroduodenoscopy (EGD) (~04/30/20) Family History Mother Hyperlipidemia Alcohol abuse Depression Hypertension Father Heart disease Hyperlipidemia Stroke Alcohol abuse Myocardial infarction x 4 Hypertension Type 2 diabetes mellitus COPD (chronic obstructive pulmonary disease) Sister Alcohol abuse Substance abuse Hypertension Sister Alcohol abuse Hypertension Brother Substance abuse Daughter Anxiety Daughter Depression Paternal Grandfather No problems noted. Paternal Grandmother Hyperlipidemia Hypertension Heart disease Maternal Grandfather Alcohol abuse Maternal Grandmother , In her 50s of [place] Hypertension Hyperlipidemia Type 2 diabetes mellitus Heart disease Stroke Myocardial infarction Social History Smoking/Tobacco Use Status: Current every day Tobacco Type: cigarettes Tobacco: How many years used: 20 Second Hand Exposure: Yes Smoking risk assessment performed?: Yes Alcohol Intake: never Drug use: Never Substance use type: does not use Caregiver/Support person: No Household members: spouse Housing: house Communication Needs: None current occupation: [employer] Pets and animals: No Sexually active: Yes Do you think of yourself as: straight/heterosexual Current gender identity: female What is your relationship status?: How often do you talk on the phone with friends or family?: three or more times per week How often do you get together with friends or relatives?: decline to answer How often do you attend zoroastrianism or amish services?: decline to answer Do you belong to any clubs or organized social groups?: no Panel score (0-1 are the most socially isolated patients): 2 What type of physical activity do you participate in: decline to answer Duration: decline to answer Frequency: decline to answer Estela/Sikhism: None Special estela needs: No Seatbelt use: always 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 Appears stated age. Normal body habitus. Head: Normocephalic, no trauma. Eyes: Pupils PERRLA, Red reflex noted, EOM's intact. Eyelids symmetrical without lesions, discharge, or swelling. ENT: Bilateral TM's WNL, External ear normal to inspection, no mastoid TTP, swelling, or erythema, Nasal turbinates WNL, no nasal discharge. Normal dentition, Posterior pharynx WNL, no exudate. Chest: RRR, Normal S1, S2, distal pulses intact. Resp: Lungs clear to auscultation bilaterally, no wheezes, rales, or rhonchi. Musculoskeletal: Normal gait, 5/5 strength to all four extremities. Right lateral malleolus tenderness and swelling with palpation. Has a abrasion noted to the anterior left knee appears contaminated with dirt. Has full range of motion noted to left knee. Skin: No suspicious rashes or lesions. Capillary refill less than 2 sec. Neurologic: Cranial nerves II-XII intact. Alert and oriented x 3. DTR's intact. Hematologic/Lymphatic: No ecchymosis, no lymphadenopathy. Course Vital Signs Vital signs: Vital Signs Temperature 36.6 C 07/12/20 12:51 Pulse 91 H 07/12/20 12:51 Respiratory Rate 20 07/12/20 12:51 Blood Pressure 143/73 H 07/12/20 12:51 Pulse Oximetry 98 07/12/20 12:51 Temperature 36.6 C 07/12/20 12:51 Temperature Source Skin 07/12/20 12:51 Pulse 91 H 07/12/20 12:51 Respiratory Rate 20 07/12/20 12:51 Respiratory Effort Non-Labored 07/12/20 12:55 Blood Pressure 143/73 H 07/12/20 12:51 Blood Pressure Position Sitting 07/12/20 12:51 Pulse Oximetry 98 07/12/20 12:51 Oxygen Delivery Method Room Air 07/12/20 12:51 Oxygen Flow Rate 0 07/12/20 12:51 Pain Level 8 07/12/20 12:51
[2020-07-12] MEDS: Acetaminophen 500 MG TAB PO (13:38)
--- NOTE | 2020-07-12 13:54 | DI.VRAD_ITS ---
PROCEDURE INFORMATION: Exam: XR Right Ankle Exam date and time: 07/12/2020 1:17 PM Age: 50 years old Clinical indication: Other: Fall, pain TECHNIQUE: Imaging protocol: XR Right ankle. Views: 3 or more views. COMPARISON: No relevant prior studies available. FINDINGS: Bones/joints: There is no evidence of acute fracture.There is no evidence of malalignment or dislocation. Soft tissues: Normal. IMPRESSION: There is no evidence of acute fracture.There is no evidence of malalignment or dislocation. Dictated and Authenticated by: Ania Diaz MD. Ordering:CLARA Guzman MD
== END 2020-07-12 14:21 | disposition home or self-care (01) ==
PROVIDERS: Emergency Provider Registered Nurse Emergency; PCP Nurse Practitioner Family
DX: S80.212A Abrasion, left knee, initial encounter (principal); W19.XXXA Unspecified fall, initial encounter; S93.491A Sprain of other ligament of right ankle, initial encounter; X50.9XXA Other and unspecified overexertion or strenuous movements or postures, initial encounter
CPT/HCPCS: 29515; 99283; 73610

== ENCOUNTER 2020-08-10 09:00 | Outpatient (CLI) | payer OTHER, SELFPAY ==
--- NOTE | 2020-08-10 09:00 | RT.EKG_ITS ---
APPROVED REPORT Exam: Resting ECG Patient Location: O HR:78 bpm ECG Measurements Heart Rate 78 AXIS IL 158 P 55 QRSd 92 QRS -27 QT 387 T 32 QTc 442 Conclusion Sinus rhythm...normal P axis, V-rate 60- 99
== END 2020-08-10 09:01 | disposition home or self-care (01) ==
LOC: DI.CM 09:00
PROVIDERS: PCP Nurse Practitioner Family; Visit Provider Nurse Practitioner Family
DX: R07.89 Other chest pain (principal)
CPT/HCPCS: 93010

== ENCOUNTER 2021-03-16 03:25 | Outpatient (CLI) | payer OTHER, SELFPAY ==
[2021-03-16 12:21] LABS: HCT 43.5 % (36.0-46.0); HGB 14.2 g/dL (11.2-15.7); MCH 32.2 pg (27.0-33.0); MCHC 32.6 % (32.0-36.0); MCV 98.6 fL (80-95); MPV 11.2 fL (8.0-11.0); Platelet Count 220 10^3/uL (130-400); RBC 4.41 10^6/uL (3.93-5.22); RDW-SD 44.2 fL; WBC 9.93 10^3/uL (4.4-10.8)
[2021-03-16 12:38] LABS: ALT 25 U/L (14-59); AST 18 U/L (15-37); Albumin 3.9 g/dL (3.4-5.0); Alkaline Phosphatase 74 U/L (46-116); Anion Gap 10.1 mmol/L (3-11); BUN 11 mg/dL (7-18); Bilirubin, Total 0.4 mg/dL (0.2-1.0); CO2 27.9 mmol/L (21.0-32.0); CREATININE 0.6 mg/dL (0.55-1.02); Calculated LDL 88 mg/dL (<100); Chloride 108 mmol/L (98-107); Cholesterol 144 mg/dL (<200); Glucose 89 mg/dL (74-106); HDL Cholesterol 45 mg/dL (40-60); Lipase 117 U/L (73-393); Potassium 3.9 mmol/L (3.5-5.1); Sodium 146 mmol/L (136-145); Total Protein 6.6 g/dL (6.4-8.2); Triglyceride 58 mg/dL (<150)
[2021-03-16 12:53] LABS: Creatine Kinase 76 U/L (26-192)
== END 2021-03-16 03:26 | disposition home or self-care (01) ==
LOC: LOS 03:31
PROVIDERS: Family Medicine; PCP Nurse Practitioner Family; Visit Provider Nurse Practitioner Family
DX: E78.5 Hyperlipidemia, unspecified (principal); I10 Essential (primary) hypertension; R10.9 Unspecified abdominal pain
CPT/HCPCS: 36415; 80053; 80061; 82550; 83690; 85027

== ENCOUNTER 2021-03-18 01:17 | Outpatient (CLI) | payer OTHER, SELFPAY ==
--- NOTE | 2021-03-18 08:00 | ETT_ITS ---
APPROVED REPORT Exam: Exercise Treadmill Patient Location: Out-Patient Room/Bed: Stress Nurse: Lianne Adkins RN Ordering Provider:YANCI VANCE, Contact Number: [phone] BMI: 23.91 Baseline Rhythm: Sinus Rhythm Indications: Chest pain Medical History Medical History: Hypertension, hyperlipidemia, gerd, current smoker Cardiac Medications: Rosuvastatin, omeprazole, atenolol Allergies: Bupropion Cardiac Risk Factors: Hypertension, hyperlipidemia, current smoker Previous Cardiac Procedures: None Pretest Chest Pain Characteristics: None Exercise History: Indeterminate Physical Disabilities: None Lung Sounds: Clear to auscultation Heart Sounds: Regular Stress Test Details Test: Exercise stress testing was performed using a Julián protocol. Rest Stress HR Resting HR Supine: 73 bpm Max Heart Rate (APMHR): 169 bpm Resting HR Standin bpm Target HR (85% APMHR): 143 bpm Max HR Achieved: 160 bpm % of APMHR: 94 Recovery HR: 93 bpm HR response to stress: Normal HR response to stress Comment: Atenolol held for 48 hrs BP Resting BP Supine: 122/76 mmHg Resting BP Standin/76 mmHg Max BP: 164/70 mmHg Recovery BP: 126/78 mmHg BP response to stress: Normal blood pressure response to stress. ECG Resting ECG: Sinus Rhythm Ectopy: None Stress ECG: Sinus Tachycardia ST Change: No significant ST segment changes noted Arrhythmia: None Recovery ECG: Sinus Rhythm Recovery ST Change: No significant ST segment changes noted Recovery Arrhythmia: None Clinical Reason for Termination: Fatigue Stress Symptoms: General Fatigue, Dyspnea Exercise duration: 11 min11 sec Highest Stage Reached: Stage 4: 4.2 mph at 16% grade. Exercise capacity: 13.48 METs Gómez Treadmill Score: 7.6 Rate Pressure Product: [id number] Stress ECG Conclusion 1. The resting electrocardiogram was normal 2. Patient exercised on the Julián protocol and completed a workload of 13.48 METS, limited by fatigue 3. Normal heart rate and blood pressure response to exercise. Patient achieved 94% of predicted hear t rate for age 4. Electrocardiographically there was no evidence of myocardial ischemia 5. There were no dysrhythmias Gómez Treadmill Score is 7.6 which is Low risk. Stress Test Summary STAGE Time (mins) Speed (mph) Grade (%) HR BP SYMPTOMS METS Supine 73 122/76 Standing 85 122/76 1 3 1.7 10 111 128/74 SpO2 95% 4.6 2 6 2.5 12 119 136/72 SpO2 97% mild SOB 7 3 9 3.4 14 129 150/76 SpO2 96% 10.2 1 min recovery 125 164/70 SpO2 97% SOB resolved 3 min recovery 89 148/78 6 min recovery 93 126/78
== END 2021-03-18 01:37 ==
PROVIDERS: PCP Nurse Practitioner Family; Visit Provider Family Medicine
DX: R07.9 Chest pain, unspecified (principal); I10 Essential (primary) hypertension; E78.5 Hyperlipidemia, unspecified; F17.210 Nicotine dependence, cigarettes, uncomplicated
CPT/HCPCS: 93017

== ENCOUNTER 2021-05-13 01:03 | Outpatient (CLI) | payer OTHER, SELFPAY ==
--- NOTE | 2021-05-13 08:15 | DI.CTLCSR_ITS ---
Exam(s) CT CHEST LUNG CANCER SCREEN EXAM: CT CHEST LUNG CANCER SCREEN CLINICAL HISTORY: Screening for lung cancer,current smoker, f17.210. TECHNIQUE: Imaging Protocol: Low Dose Technique CONTRAST MATERIAL: None COMPARISON: No exams were available for comparison FINDINGS: CHEST: LUNGS: Some scarring in the sub apical regions of both upper lobes noted. There are no ominous pulmo nary nodules. There are no confluent infiltrates. No pleural effusions. MEDIASTINUM: There is no obvious hilar nor mediastinal adenopathy. CARDIAC: Heart size is normal. There is no pericardial effusion.Caliber of the thoracic aorta is wit hin normal limits. OTHER: OSSEOUS: No significant osseous lesions.. IMPRESSION: 1. No significant pulmonary nodules. No pleural effusions 2. No intrathoracic adenopathy. 3. Lung RADS Cat 1 - Negative: No nodules and definitely benign nodules Lung-RADS 1.0 CATEGORIES: Category 0 - Prior chest CT exam(s) being located for comparison. Category 1 - Annual screening in 12 months. No nodules or definitely benign nodules. Category 2 - Annual screening in 12 months. Benign appearance. Nodules with low likelihood of becomin g active cancer. Category 3 - 6-month follow-up. Probably benign. Short-term follow-up suggested. Nodules with low lik elihood of becoming active cancer. Category 4A - 3-month follow-up and CT/PET if >8 mm in size. Suspicious finding. Findings which requi re additional testing. Category 4B - Findings which require additional testing and tissue sampling. Modifier S- Potentially clinically significant findings (non lung cancer) RADIATION DOSE DELIVERED: 72.61mGy.cm Total DLP 1.84mGy CTDIvol DATA REPOSITORY: All CT scans at this facility are submitted to the National Radiology Data Registry (NRDR) Dose Index Registry (DIR) with the [employer] (ACR). RADIATION OPTIMIZATION: All CT scans at this facility use at least one of these dose optimization te chniques: automated exposure control; mA and/or kV adjustment per patient size (includes targeted exa ms where dose is matched to clinical indication); or iterative reconstruction.
--- NOTE | 2021-05-13 14:37 | DI.MAMMO_ITS ---
Exam(s) MAMMO SCREENING EXAM: MAMMO SCREENING CLINICAL HISTORY: screening.z12.39. TECHNIQUE: Bilateral full field digital CC and MLO mammographic images were obtained with 3D tomosyn thesis and utilizing computer aided detection (CAD). COMPARISON: Prior mammograms dating back to 2012, the most recent being March 2020. FINDINGS: There are no CAD designations. There are no new spiculated masses nor malignant appearing microcalcification groups. There is no significant architectural distortion nor skin thickening-retraction. IMPRESSION: No radiographic evidence of malignancy. BI-RADS Category 1 - Negative Breast Density - Category B - Scattered areas of fibroglandular density Breast density Category C or D implies that the patient has dense breast tissue. Dense breast tissue can make it harder to find cancer on a mammogram. Dense breast tissue is also associated with an incr eased risk of breast cancer. This information about the result of the mammogram report was provided to the patient to raise their awareness. Use this report when you speak with the patient about their risks for breast cancer, which includes their family history. At that time, you may recommend additional screening tests (Ultrasoun d or MRI) as these tests may add significant information. A negative radiographic report should not delay biopsy if a dominant or clinically suspicious mass is present. Up to ten percent of cancers are not identified on mammography. A negative report may reinforce clinical impression. Adenosis and dense breasts may obscure an underlying neoplasm. False positive reports average 6 to 10%. Patient will receive a letter notifying them of these results.
== END 2021-05-13 01:23 ==
PROVIDERS: PCP Nurse Practitioner Family; Visit Provider Nurse Practitioner Family
DX: Z12.31 Encounter for screening mammogram for malignant neoplasm of breast (principal); Z12.2 Encounter for screening for malignant neoplasm of respiratory organs; F17.210 Nicotine dependence, cigarettes, uncomplicated
CPT/HCPCS: 71271; 77063; 77067

== ENCOUNTER 2022-05-09 15:24 | Outpatient (REF) | payer OTHER, SELFPAY ==
--- NOTE | 2022-05-09 11:30 | PAPFT_PTH ---
PATIENT: Tasha Mcmahan LOC: [facility] U#:[id number] AGE/SX: 52/F ROOM: RE05/09/[address]: YELITZA Ny : 1970 BED: DIS: 05/09/2022 SPEC #: [id number] RECD: 05/10/22 12:24 STATUS: JENNIFER MEDRANO #: [id number] MARLEE: 05/09/22 11:[address]: Coeren Stevenson DEPT: [facility] Cytology RECD BY: Sharon Coppola Tissues: 1 - CX/ENDOCX FOR PAP SMEARS Procedures: PAP THIN PREP/UVM Screening HPV DNA PROBE Comments: [id number]
== END 2022-05-09 15:25 | disposition home or self-care (01) ==
LOC: LBN 15:24
PROVIDERS: PCP Nurse Practitioner Family; Visit Provider Nurse Practitioner Family
DX: Z12.4 Encounter for screening for malignant neoplasm of cervix (principal); Z11.51 Encounter for screening for human papillomavirus (HPV)
CPT/HCPCS: 88142; 87624

== ENCOUNTER 2022-05-13 02:01 | Outpatient (CLI) | payer OTHER, SELFPAY ==
[2022-05-13 12:55] LABS: ALT 21 U/L (14-59); AST 25 U/L (15-37); Alkaline Phosphatase 82 U/L (46-116); Anion Gap 7.2 mmol/L (3-11); BUN 12 mg/dL (7-18); Bilirubin, Total 0.5 mg/dL (0.2-1.0); CO2 28.8 mmol/L (21.0-32.0); CREATININE 0.8 mg/dL (0.55-1.02); Calcium 9.1 mg/dL (8.5-10.1); Chloride 104 mmol/L (98-107); Glucose 107 mg/dL (74-106); Potassium 4.1 mmol/L (3.5-5.1); Sodium 140 mmol/L (136-145); Total Protein 7.1 g/dL (6.4-8.2)
== END 2022-05-13 02:02 | disposition home or self-care (01) ==
LOC: LOS 02:03
PROVIDERS: PCP Nurse Practitioner Family; Visit Provider Nurse Practitioner Family
DX: I10 Essential (primary) hypertension (principal); M79.674 Pain in right toe(s)
CPT/HCPCS: 36415; 80053; 84550

== ENCOUNTER → 2022-06-03 00:10 | Outpatient (CLI) | payer OTHER, SELFPAY ==
--- NOTE | 2022-06-03 07:15 | DI.MAMMO_ITS ---
Exam(s) MAMMO SCREENING EXAM: MAMMO SCREENING CLINICAL HISTORY: screening, Z12.39 TECHNIQUE: Bilateral full field digital CC and MLO mammographic images were obtained with 3D tomosyn thesis and utilizing computer aided detection (CAD). COMPARISON: Available for comparison. FINDINGS: Masses/Architectural Distortion: The asymmetric density seen in the central left breast on the CC vie w is unchanged dating back to 2012. Microcalcifications: No suspicious pleomorphic-type are seen. Skin Thickening/Nipple Retraction: None. IMPRESSION: 1. No significant interval change with no specific features of malignancy noted. 2. Unless there is more urgent need, screening mammography is recommended, as per [employer] guidelines. BI-RADS Category 2 - Benign Findings Breast Density - Category B - Scattered areas of fibroglandular density Breast density category C or D implies that the patient has dense breast tissue. Dense breast tissue is very common and is not abnormal but dense breast tissue can make it harder to find cancer on a ma mmogram. Also, dense breast tissue may increase their breast cancer risk. This information about the result of the mammogram report was provided to the patient to raise their awareness. Use this report when you speak with the patient about their risks for breast cancer, which includes their family hist ory. At that time, you may recommend for more screening tests (Ultrasound or MRI) as they might be us eful based on their risk. A negative radiographic report should not delay biopsy if a dominant or clinically suspicious mass is present. Up to ten percent of cancers are not identified on mammography. A negative report may reinforce clinical impression. Adenosis and dense breasts may obscure an underlying neoplasm. False positive reports average 6 to 10%. Patient will receive a letter notifying them of these results.
--- NOTE | 2022-06-03 08:11 | DI.CTLCSR_ITS ---
Exam(s) CT CHEST LUNG CANCER SCREEN EXAM: CT CHEST LUNG CANCER SCREEN CLINICAL HISTORY: Screening for lung cancer, CURRENT SMOKER, F17.210 TECHNIQUE: Imaging Protocol: Axial computed tomography images with coronal and sagittal reformatted images were created and reviewed COMPARISON: CT CT CHEST LUNG CANCER SCREEN from 05/13/2021 FINDINGS: Tracheobronchial tree: Patent where visualized. Pulmonary parenchyma: Emphysematous changes are present in the lungs. There is scarring in the lung apices. No focal consolidating infiltrates are present. Lung Nodules: None. Mediastinum and Narcisa: No dominant adenopathy or fluid collection. The esophagus is unremarkable. Thyroid gland: Unremarkable. Lymph nodes: Unremarkable. Pleura: No effusion or pneumothorax. Heart: The heart is not dilated. Coronary artery calcifications are present. No pericardial effusion . Aorta: Thoracic aorta non-dilated.Atherosclerosis is present. Upper abdomen: Unremarkable. Soft Tissues: Unremarkable. Bones: Within normal limits. IMPRESSION: No pulmonary nodules. Lung RADS Cat 1 - Negative: No nodules and definitely benign nodules Lung-RADS 1.0 CATEGORIES: Category 0 - Prior chest CT exam(s) being located for comparison. Category 1 - Annual screening in 12 months. No nodules or definitely benign nodules. Category 2 - Annual screening in 12 months. Benign appearance. Nodules with low likelihood of becomin g active cancer. Category 3 - 6-month follow-up. Probably benign. Short-term follow-up suggested. Nodules with low lik elihood of becoming active cancer. Category 4A - 3-month follow-up and CT/PET if >8 mm in size. Suspicious finding. Findings which requi re additional testing. Category 4B - Findings which require additional testing and tissue sampling. Suspicious finding. Category 4X - Category 3 or 4 nodules with additional features or imaging findings that increases the suspicion of malignancy. Modifier S- Potentially clinically significant finding. (Non lung cancer) RADIATION DOSE DELIVERED: 79.98mGy.cm Total DLP 79.98mGy.cmTotal DLP DATA REPOSITORY: All CT scans at this facility are submitted to the National Radiology Data Registry (NRDR) Dose Index Registry (DIR) with the [employer] (ACR). RADIATION OPTIMIZATION: All CT scans at this facility use at least one of these dose optimization te chniques: automated exposure control; mA and/or kV adjustment per patient size (includes targeted exa ms where dose is matched to clinical indication); or iterative reconstruction.
--- NOTE | 2022-06-03 08:20 | DI.RAD_ITS ---
Exam(s) XR FOOT RT COMPLETE EXAM: XR FOOT RT COMPLETE CLINICAL HISTORY: right great toe pain, M79.674. TECHNIQUE: 2D digital imaging was performed of the right foot. Three images were obtained. AP, obl ique and lateral views were obtained. COMPARISON: CR,XR XR ANKLE RT COMPLETE from 07/12/2020 FINDINGS: BONES: No acute fracture is present. No bony destructive lesion is seen. JOINTS: No dislocation present. There are mild degenerative changes seen at the 1st MTP joint with pe riarticular spurring and joint space narrowing present. SOFT TISSUE: Normal. IMPRESSION: Mild degenerative changes of the 1st MTP joint. DATA REPOSITORY: RADIATION DOSE DELIVERED:
== END ==
PROVIDERS: PCP Nurse Practitioner Family; Visit Provider Nurse Practitioner Family
DX: Z12.31 Encounter for screening mammogram for malignant neoplasm of breast (principal); Z12.2 Encounter for screening for malignant neoplasm of respiratory organs; F17.210 Nicotine dependence, cigarettes, uncomplicated; M79.674 Pain in right toe(s); M19.071 Primary osteoarthritis, right ankle and foot; J43.8 Other emphysema; N60.82 Other benign mammary dysplasias of left breast; R91.8 Other nonspecific abnormal finding of lung field
CPT/HCPCS: 71271; 77063; 77067; 73630

== ENCOUNTER 2022-08-16 16:00 | Outpatient (CLI) | payer OTHER, SELFPAY ==
--- NOTE | 2022-08-16 15:00 | DI.RAD_ITS ---
Exam(s) XR FOOT RT COMPLETE EXAM: XR FOOT RT COMPLETE CLINICAL HISTORY: R foot pain, bilateral metatarsalgia M79.673 PAIN. TECHNIQUE: 2D digital imaging was performed. COMPARISON: CR XR FOOT RT COMPLETE from 06/03/2022 CR XR FOOT LT COMPLETE from 08/16/2022 FINDINGS: 3 views No evidence of fracture or diastasis of the Lisfranc joint. Degenerative changes noted in the metata rsophalangeal joint of the great toe. No other nor erosions. No radiopaque foreign body. Osseous l esions. No pes planus. IMPRESSION: Degenerative changes in the great toe metatarsophalangeal joint. On the lateral view there is a bony excrescence noted off the dorsal aspect of the head of great toe metatarsal. DATA REPOSITORY: RADIATION DOSE DELIVERED:
--- NOTE | 2022-08-16 15:00 | DI.RAD_ITS ---
Exam(s) XR FOOT LT COMPLETE EXAM: XR FOOT LT COMPLETE CLINICAL HISTORY: R foot pain, bilateral metatarsalgia M79.674 PAIN. TECHNIQUE: 2D digital imaging was performed. COMPARISON: CR XR FOOT RT COMPLETE from 06/03/2022 FINDINGS: 3 views No evidence fracture or diastasis of the Lisfranc joint. There is developmental short 2nd metatarsal. Metatarsophalangeal joints unremarkable. No osseous le sions. Bone density normal. No hallux valgus. IMPRESSION: Developmentally short 2nd metatarsal. Similar findings are not seen in opposite-right foot. DATA REPOSITORY: RADIATION DOSE DELIVERED:
== END 2022-08-16 16:20 ==
LOC: DI 16:01
PROVIDERS: PCP Nurse Practitioner Family; Visit Provider Podiatrist Foot & Ankle Surgery
DX: M79.671 Pain in right foot; M79.672 Pain in left foot; M77.41 Metatarsalgia, right foot; M77.42 Metatarsalgia, left foot; M20.5X2 Other deformities of toe(s) (acquired), left foot
CPT/HCPCS: 73630

== ENCOUNTER 2023-05-16 02:14 | Outpatient (CLI) | payer OTHER, SELFPAY ==
[2023-05-16 13:01] LABS: Abs Immature Grans 0.01 10^3/uL (0.0-0.06); Absolute Basophil Count 0.09 10^3/uL (0.0-0.2); Absolute Eosinophil Count 0.14 10^3/uL (0.0-0.7); Absolute Lymphocyte Count 3.15 10^3/uL (1.2-3.4); Absolute Neutrophil Count 4.51 10^3/uL (1.2-6.7); Basophils % 1.1; Eosinophils % 1.7; HCT 45.9 % (36.0-46.0); HGB 15.2 g/dL (11.2-15.7); Immature Grans % 0.1; MCHC 33.1 % (32.0-36.0); MCV 97 fL (80-95); MPV 10.8 fL (8.0-11.0); Monocytes % 4.8; Neutrophils % 54.3; Platelet Count 234 10^3/uL (130-400); RBC 4.75 10^6/uL (3.93-5.22); RDW 12.1 % (11.7-14.6); RDW-SD 43.8 fL
[2023-05-16 13:23] LABS: Anion Gap 7.5 mmol/L (3-11); BUN 9 mg/dL (7-18); CO2 28.5 mmol/L (21.0-32.0); CREATININE 0.7 mg/dL (0.55-1.02); Calcium 9.3 mg/dL (8.5-10.1); Calculated LDL 92 mg/dL (<100); Chloride 106 mmol/L (98-107); Cholesterol 150 mg/dL (<200); Estimated GFR 103.35 (mL/min/1.73m2); Glucose 116 mg/dL (74-106); HDL Cholesterol 39 mg/dL (40-60); Potassium 3.9 mmol/L (3.5-5.1); Sodium 142 mmol/L (136-145); TSH (W/Ref FT4) 1.02 uIU/mL (0.36-3.74); Triglyceride 95 mg/dL (<150)
== END 2023-05-16 02:15 | disposition home or self-care (01) ==
LOC: LOS 02:15
PROVIDERS: PCP Nurse Practitioner Family; Visit Provider Nurse Practitioner Family
DX: Z00.00 Encounter for general adult medical examination without abnormal findings (principal)
CPT/HCPCS: 36415; 80048; 80061; 84443; 85025

== ENCOUNTER → 2023-06-06 01:09 | Outpatient (CLI) | payer OTHER, SELFPAY ==
--- NOTE | 2023-06-06 07:30 | DI.MAMMO_ITS ---
Exam(s) MAMMO SCREENING EXAM: MAMMO SCREENING CLINICAL HISTORY: screening, Z12.39 TECHNIQUE: Bilateral full field digital CC and MLO mammographic images were obtained with 3D tomosyn thesis and utilizing computer aided detection (CAD). COMPARISON: 2014 through 2021 FINDINGS: Masses/Architectural Distortion: None seen. Microcalcifications: No suspicious pleomorphic-type are seen. Skin Thickening/Nipple Retraction: None. IMPRESSION: 1. No significant interval change with no specific features of malignancy noted. 2. Unless there is more urgent need, screening mammography is recommended, as per [employer] guidelines. BI-RADS Category 1 - Negative Breast Density - Category B - Scattered areas of fibroglandular density A negative radiographic report should not delay biopsy if a dominant or clinically suspicious mass is present. Up to ten percent of cancers are not identified on mammography. A negative report may reinforce clinical impression. Adenosis and dense breasts may obscure an underlying neoplasm. False positive reports average 6 to 10%. Patient will receive a letter notifying them of these results.
--- NOTE | 2023-06-06 09:50 | DI.CTLCSR_ITS ---
Exam(s) CT CHEST LUNG CANCER SCREEN EXAM: CT CHEST LUNG CANCER SCREEN CLINICAL HISTORY: Screening for lung cancer, current smoker, F17.210 TECHNIQUE: Imaging Protocol: Axial computed tomography images with coronal and sagittal reformatted images were created and reviewed. Low dose screening protocol. COMPARISON: CT CT CHEST LUNG CANCER SCREEN from 06/03/2022 FINDINGS: Tracheobronchial tree: No bronchiectasis or mucus plugging.. Mediastinum and Narcisa: No dominant adenopathy or fluid collection. Pulmonary parenchyma: No consolidation or dominant measurable mass. Moderate emphysematous changes. Scarring at lung apices. Lung Nodules: None. Pleura: No effusion. No pneumothorax. Heart: The heart is not dilated. coronary artery calcifications are seen. Aorta: Thoracic aorta non-dilated. Upper abdomen: Unremarkable. Bones: Unremarkable for age. Soft Tissues: Unremarkable. IMPRESSION: No suspicious pulmonary nodules. Lung RADS Cat 1 - Negative: No nodules and definitely benign nodules Lung-RADS 1.0 CATEGORIES: Category 0 - Prior chest CT exam(s) being located for comparison. Category 1 - Annual screening in 12 months. No nodules or definitely benign nodules. Category 2 - Annual screening in 12 months. Benign appearance. Nodules with low likelihood of becomin g active cancer. Category 3 - 6-month follow-up. Probably benign. Short-term follow-up suggested. Nodules with low lik elihood of becoming active cancer. Category 4A - 3-month follow-up and CT/PET if >8 mm in size. Suspicious finding. Findings which requi re additional testing. Category 4B - Findings which require additional testing and tissue sampling. Category 4X - Category 3 or 4 nodules with additional features or imaging findings that increases the suspicion of malignancy. Modifier S- Potentially clinically significant findings (non lung cancer) RADIATION DOSE DELIVERED: Total DLP DATA REPOSITORY: All CT scans at this facility are submitted to the National Radiology Data Registry (NRDR) Dose Index Registry (DIR) with the [employer] (A[employer]). RADIATION OPTIMIZATION: All CT scans at this facility use at least one of these dose optimization te chniques: automated exposure control; mA and/or kV adjustment per patient size (includes targeted exa ms where dose is matched to clinical indication); or iterative reconstruction.
--- NOTE | 2023-06-06 10:00 | DI.RAD_ITS ---
Exam(s) XR CERVICAL SPINE COMP 4-5V EXAM: XR CERVICAL SPINE COMP 4-5V CLINICAL HISTORY: chronic neck pain, cervicalgia, M54.2. TECHNIQUE: 2D digital imaging was performed. Five views were performed. COMPARISON: No exams were available for comparison FINDINGS: BONES: No fracture or destructive lesion. Vertebral bodies are unremarkable. Mild facet degenerativ e changes. No significant neural foraminal narrowing. DISKS: Intervertebral disc spaces are maintained. ALIGNMENT: Cervical spinal alignment is within normal limits. The odontoid and atlantoaxial articulat ions are normal. SOFT TISSUE: Normal. The lung apices are clear. IMPRESSION: Mild facet joint degenerative changes DATA REPOSITORY: RADIATION DOSE DELIVERED:
== END ==
PROVIDERS: PCP Nurse Practitioner Family; Visit Provider Nurse Practitioner Family
DX: F17.210 Nicotine dependence, cigarettes, uncomplicated (principal); Z12.31 Encounter for screening mammogram for malignant neoplasm of breast; M54.2 Cervicalgia; Z12.2 Encounter for screening for malignant neoplasm of respiratory organs
CPT/HCPCS: 71271; 77063; 77067; 72050

== ENCOUNTER 2024-05-21 02:25 | Outpatient (CLI) | payer OTHER, SELFPAY ==
[2024-05-21 12:42] LABS: Anion Gap 9.1 mmol/L (3-11); BUN 13 mg/dL (7-18); CO2 27.9 mmol/L (21.0-32.0); CREATININE 0.8 mg/dL (0.55-1.02); Chloride 108 mmol/L (98-107); Glucose 115 mg/dL (74-106); Potassium 3.8 mmol/L (3.5-5.1); Sodium 145 mmol/L (136-145)
[2024-05-21 18:48] LABS: Hepatitis C Ab w Rflx HCV PCR Negative (Negative)
[2024-05-21 18:56] LABS: HIV-1/2 Ag & Ab Screen Negative (Negative)
[2024-05-21 19:16] LABS: HBs Antibody, Quant <3.1 mIU/mL (See Note); Hep B Surface Ab Negative (See Note); Hepatitis B Core Antibody Negative (Negative); Hepatitis B Surface Antigen Negative (Negative)
== END 2024-05-21 02:26 | disposition home or self-care (01) ==
PROVIDERS: PCP Nurse Practitioner Family; Visit Provider Nurse Practitioner Family
DX: Z11.59 Encounter for screening for other viral diseases (principal); I10 Essential (primary) hypertension; Z11.4 Encounter for screening for human immunodeficiency virus [HIV]
CPT/HCPCS: 36415; 80048; 86704; 86706; 86803; 87340; 87389

== ENCOUNTER 2024-06-07 00:30 | Outpatient (CLI) | payer OTHER, SELFPAY ==
--- NOTE | 2024-06-07 06:30 | DI.MAMMO_ITS ---
Exam(s) MAMMO SCREENING EXAM: MAMMO SCREENING CLINICAL HISTORY: screening, Z12.39 TECHNIQUE: Mammograms were interpreted according to the usual protocol including computer analysis w xaitment CAD system, tomosynthesis and C-view imaging. COMPARISON: 2014 through 2022 FINDINGS: The breasts are composed of scattered fibroglandular densities, Breast Density category B. No suspicious masses or suspicious microcalcifications are seen. No skin thickening or abnormal axillary lymph nodes are seen. There has been no significant change from prior exams. IMPRESSION: BI-RADS Category 1, Negative mammogram Yearly screening mammography is recommended. Breast Density - Category B, scattered fibroglandular densities. A negative radiographic report should not delay biopsy if a dominant or clinically suspicious mass is present. Up to ten percent of cancers are not identified on mammography. A negative report may reinforce clinical impression. Adenosis and dense breasts may obscure an underlying neoplasm. False positive reports average 6 to 10%. Patient will receive a letter notifying them of these results.
--- NOTE | 2024-06-07 06:37 | DI.CTLCSR_ITS ---
Exam(s) CT CHEST LUNG CANCER SCREEN EXAM: CT CHEST LUNG CANCER SCREEN CLINICAL HISTORY: Screening for lung cancer, CURRENT SMOKER, F17.210 TECHNIQUE: Imaging Protocol: Axial computed tomography images with coronal and sagittal reformatted images were created and reviewed. Low dose screening protocol. COMPARISON: CT CT CHEST LUNG CANCER SCREEN from 06/06/2023 FINDINGS: Tracheobronchial tree: No bronchiectasis or mucus plugging. Mediastinum and Narcisa: No dominant adenopathy or fluid collection. Pulmonary parenchyma: No consolidation or dominant measurable mass. Moderate emphysematous changes. Biapical scarring. Lung Nodules: None. Pleura: No effusion. No pneumothorax. Heart: The heart is not dilated. Mild coronary artery calcifications are seen. No pericardial effusi on. Aorta: Thoracic aorta non-dilated.Mild atherosclerotic changes. Upper abdomen: Unremarkable. Bones: Unremarkable for age. Soft Tissues: Unremarkable. IMPRESSION: No suspicious pulmonary nodules. Lung RADS Cat 1 - Negative: No nodules and definitely benign nodules Lung-RADS 1.0 CATEGORIES: Category 0 - Prior chest CT exam(s) being located for comparison. Category 1 - Annual screening in 12 months. No nodules or definitely benign nodules. Category 2 - Annual screening in 12 months. Benign appearance. Nodules with low likelihood of becomin g active cancer. Category 3 - 6-month follow-up. Probably benign. Short-term follow-up suggested. Nodules with low lik elihood of becoming active cancer. Category 4A - 3-month follow-up and CT/PET if >8 mm in size. Suspicious finding. Findings which requi re additional testing. Category 4B - Findings which require additional testing and tissue sampling. Category 4X - Category 3 or 4 nodules with additional features or imaging findings that increases the suspicion of malignancy. Modifier S- Potentially clinically significant findings (non lung cancer) RADIATION DOSE DELIVERED: !Error Total DLP DATA REPOSITORY: All CT scans at this facility are submitted to the National Radiology Data Registry (NRDR) Dose Index Registry (DIR) with the [employer] (ACR). RADIATION OPTIMIZATION: All CT scans at this facility use at least one of these dose optimization te chniques: automated exposure control; mA and/or kV adjustment per patient size (includes targeted exa ms where dose is matched to clinical indication); or iterative reconstruction.
== END 2024-06-07 00:50 ==
LOC: DI 00:31
PROVIDERS: PCP Nurse Practitioner Family; Visit Provider Nurse Practitioner Family
DX: Z12.31 Encounter for screening mammogram for malignant neoplasm of breast (principal); F17.210 Nicotine dependence, cigarettes, uncomplicated; R92.323 Mammographic fibroglandular density, bilateral breasts
CPT/HCPCS: 71271; 77063; 77067

== ENCOUNTER 2024-11-18 06:22 | Emergency (ER) | payer OTHER, SELFPAY ==
[2024-11-18] VITALS (30 sets, daily range): BP systolic 114–179; BP diastolic 65–82; PULSE 52–90; RESP 11–23; TEMP 36; O2SAT 95–99
--- NOTE | 2024-11-18 06:15 | RT.EKG_ITS ---
APPROVED REPORT Exam: Resting ECG Reason for Exam: chest pain Patient Location: E HR:78 bpm ECG Measurements Heart Rate 78 AXIS LA 156 P 57 QRSd 92 QRS -31 QT 382 T 14 QTc 435 Conclusion Sinus rhythm...normal P axis, V-rate 60- 99 Inferior infarct, old...Q >35mS, II III aVF Consider anteroseptal infarct...Q >30mS, dimin R, V1-V2 There are no significant changes compared to prior EKG performed on 08/10/2020 at 09:06.
--- NOTE | 2024-11-18 06:26 | W.ED.GENAD ---
Discharge Plan Discharge Details Chief Complaint: Chest Pain Primary Care Provider: Coreen Stevenson ED Provider: Waqar Denise [place] Meds and New Rx's Prescriptions: No Action varenicline tartrate [Chantix Starting Month Box] 0.5 mg (11)- 1 mg (42) tablets,dose pack See Rx Instructions PO DIRECTED Qty: 53 0RF Rx Instructions: Take 0.5mg daily days 1 to 3, 0.5mg twice a day days 4-7, then 1mg twice a day for 11wks varenicline tartrate [Chantix Continuing Month Box] 1 mg tablet 1 mg PO BID Qty: 168 0RF omeprazole 20 mg capsule,delayed release(DR/EC) 20 mg PO DAILY triamcinolone acetonide 0.1 % cream 1 applic TP BID PRN (Reason: eczema) Qty: 80 4RF rosuvastatin 10 mg tablet 10 mg PO DAILY Qty: 90 3RF atenolol 25 mg tablet 25 mg PO DAILY Qty: 90 3RF Rx Instructions: Take 1 tablet by mouth daily HPI General Mode of arrival: ambulatory. Date/Time Provider Initiated Documentation: 11/18/24 06:26. Limitations to Documentation: no limitations. Information obtained by: patient, RN notes reviewed and old records reviewed. HPI Narrative: Patient presents to ED with complaint of upper abdominal pain and chest pain with radiation to the back, nausea and vomiting. Onset was early this morning around 130 when she woke up with upper abdominal pain. By the time she got downstairs she was nauseated and vomited. Pain intensified and seem to go up into her chest into her back. She has continued to have pain and vomiting. She feels a little short of breath but thinks it may be related to increased pain with breathing mostly in the abdomen. She denies any leg pain or leg swelling. She has a lingering cough from a cold she had a little while ago. She is a smoker. She also has high blood pressure and hyperlipidemia. The only abdominal surgery she had in the past is tubal ligation. Related Data Home Medications ?Medication ?Instructions ?Recorded ?Confirmed triamcinolone acetonide 0.1 % 1 applic topical BID PRN eczema 09/02/19 11/18/24 topical cream #80 grams omeprazole 20 mg capsule,delayed 20 mg PO DAILY 12/02/24 06/09/25 release varenicline tartrate 0.5 mg (11)-1 See Rx Instructions PO DIRECTED 05/13/24 11/18/24 mg (42) tablets in a dose pack #53 dose pk (Chantix Starting Month Box) varenicline tartrate 1 mg tablet 1 mg PO BID #168 tabs 05/13/24 11/18/24 (Chantix Continuing Month Box) atenolol 25 mg tablet 25 mg PO DAILY #90 tabs 06/10/24 11/18/24 rosuvastatin 10 mg tablet 10 mg PO DAILY #90 tabs 06/10/24 11/18/24 Previous Rx's ?Medication ?Instructions ?Recorded triamcinolone acetonide 0.1 % 1 applic topical BID PRN eczema 09/02/19 topical cream #80 grams varenicline tartrate 0.5 mg (11)-1 See Rx Instructions PO DIRECTED 05/13/24 mg (42) tablets in a dose pack #53 dose pk (Chantix Starting Month Box) varenicline tartrate 1 mg tablet 1 mg PO BID #168 tabs 05/13/24 (Chantix Continuing Month Box) atenolol 25 mg tablet 25 mg PO DAILY #90 tabs 06/10/24 rosuvastatin 10 mg tablet 10 mg PO DAILY #90 tabs 06/10/24 Allergies Allergy/AdvReac Type Severity Reaction Status Date / Time bupropion (From Wellbutrin) AdvReac bad dreams Verified 11/18/24 06:28 General MARIN: 4 Exam Narrative Exam Narrative: Const: WDWN female in NAD. VS per triage. HEENT: NC/AT. Normal facial exam. Neck: Supple. Trachea midline. Lungs: Normal respiratory effort. Lungs are clear. Cor: RRR without murmur. Good radial pulses. GI: Soft/ND. Tender with voluntary guarding in the RUQ. No Arechiga's Neuro: A+O x 3. Normal speech, mentation, gait. Cranial nerves II - XII grossly intact. No gross motor or sensory deficit. Ext: No C/C/E. No calf tenderness. Medical Decision Making Patient presenting to the ED with upper abdominal pain that seems to radiate to the chest and back, associated nausea and vomiting with onset around 1:30 AM. She does have cardiac risk factors. She still has a gallbladder. She is tender in the right upper quadrant. Previous stress testing in 2020 was normal and considered low risk for cardiac disease. Differential at this point does include ACS. However, given her tenderness in the right upper quadrant gallbladder disease is also high in the differential. Likewise pancreatitis, acid related disease and PE are also considered. She is low risk for PE but cannot PERC out so D-dimer will be included in her labs. Chest imaging to be determined by D-dimer result. Right upper quadrant ultrasound is ordered. IV fluids, morphine, ondansetron given. Given that ACS is a strong possibility she is also given aspirin. Her EKG is sinus rhythm with no acute ST changes and no significant change from EKG done in 2020. Patient signed out to oncoming ED physician pending work up. Medical Records Medical records reviewed: Yes I reviewed the patient's medical records. Medical records narrative: Normal Treadmill Stress Test in 2020 ECG Data Attestation: I personally reviewed and interpreted this ECG (s) as follows: Prior ECG tracings: available for review Interpretation: see MDM/EKG PFSH All Active Problems Abnormal uterine bleeding (Acute) Cigarette smoker (Chronic) Annual LDCT Cervicalgia (Chronic) Hallux rigidus of right foot (Chronic) Chronic low back pain (Chronic) Atopic dermatitis (Chronic) Medical History GERD (gastroesophageal reflux disease) Hyperlipidemia Essential hypertension Surgical History History of esophagogastroduodenoscopy (EGD) (04/30/20) History of colonoscopy (04/30/20) History of bilateral tubal ligation (~1991) Family History (Updated 05/14/24 @ 09:45 by Ericka Jefferson) Mother Hyperlipidemia Alcohol abuse Depression Hypertension Father , was 76 lung problems with sepsis, pneumonia 05/06/24 Heart disease Hyperlipidemia Stroke Alcohol abuse Myocardial infarction x 4 Hypertension Type 2 diabetes mellitus COPD (chronic obstructive pulmonary disease) Sister Alcohol abuse Substance abuse Hypertension Sister Alcohol abuse Hypertension Brother Substance abuse Daughter Anxiety Daughter Depression Paternal Grandfather No problems noted. Paternal Grandmother Hyperlipidemia Hypertension Heart disease Maternal Grandfather Alcohol abuse Maternal Grandmother , In her 50s of [place] Hypertension Hyperlipidemia Type 2 diabetes mellitus Heart disease Stroke Myocardial infarction Social History Smoking/Tobacco Use Status: Current every day Tobacco Type: cigarettes Tobacco: How many years used: 30 Quit status: considering quitting Second Hand Exposure: Yes Smoking risk assessment performed?: Yes Alcohol Intake: current Alcohol Intake frequency: holidays/special occasions only Alcohol type: beer and other Drug use: Never Substance use type: does not use Adopted: No Caregiver/Support person: No Foster care: No Household members: spouse Housing: house Number of Children: 2 number of grandchildren: 4 Communication Needs: Corrective Lenses Education Level: high school Do you need help understanding health information?: Rarely current occupation: [employer] Pets and animals: No Sexually active: Yes Do you think of yourself as: straight/heterosexual Current gender identity: female Other: self employed What is your relationship status?: How often do you talk on the phone with friends or family?: three or more times per week How often do you get together with friends or relatives?: once per week How often do you attend sikhism or shinto services?: decline to answer Do you belong to any clubs or organized social groups?: no Panel score (0-1 are the most socially isolated patients): 2 What type of physical activity do you participate in: none Estela/Christianity: None Special estela needs: No Agree to transfusion: Yes Seatbelt use: always Helmet use: Yes Drive intox or ride w/intox route driver coin machines: No Working smoke detector in home: Yes Carbon monox detector in home: Yes Firearms in home: Yes Firearms unloaded and locked: Yes Do you feel safe at home: Yes Do you feel safe in your relationship?: Yes Female Reproductive History Menstrual control method: permanent sterilization (BTL) Menopause type: natural Date of menopause: 06/11/20 History History 2 Para 2 Hx # Term Pregnancies Multiple births Hx # Pregnancies Ectopic pregnancies AB induced Hx Number of Living Children 2 AB spontaneous
--- NOTE | 2024-11-18 06:30 | DI.US_ITS ---
Exam(s) US ABDOMEN LIMITED EXAM: US ABDOMEN LIMITED CLINICAL HISTORY: RUQ pain/tenderness TECHNIQUE: Ultrasound abdomen performed using standard protocol. COMPARISON: US US ABDOMEN from 04/13/[address] CHEST LUNG CANCER SCREEN from 06/07/2024 FINDINGS: There is no ascites evident. LIVER: There are no hepatic lesions evident nor dilatation of intrahepatic ducts. Mild steatosis not ed. GALLBLADDER/BILIARY: The gallbladder wall appears somewhat thickened and hyperechoic. There is also a septum within the gallbladder evident. No shadowing gallstones. The common hepatic duct isnot dilated, measuring 3-4mm at the level of joy hepatis. PANCREAS: There is no evidence of pancreatic mass nor dilatation of the pancreatic duct. RIGHT KIDNEY:No evidence of solid mass, calculus, nor hydronephrosis. No cortical cysts evident. IMPRESSION: 1. Gallbladder wall appears thickened and hyperechoic. Although there are no intraluminal gallstone s this is abnormal appearance of the gallbladder. Suspect that there may be an element of gallbladde r dysfunction. CBD is not dilated. 2. Hepatic steatosis. No discrete focal hepatic lesions 3. No other right upper quadrant ultrasound findings and there is no ascites. Discussed by phone with ER physician 11/18/2024 at 9:50 a.m. DATA REPOSITORY:
[2024-11-18] MEDS: Ondansetron 4 MG/2 ML VIAL IVP (06:48)
[2024-11-18] MEDS: Normal Saline 1,000 ML 1000 ML IV (06:48)
[2024-11-18] MEDS: MORPHine 4 MG/ML SYR IVP (06:49)
[2024-11-18] MEDS: Aspirin 81 MG CHEW 324 MG CH (06:49)
[2024-11-18 06:53] LABS: Lactate 0.8 mmol/L (<or=2.0)
[2024-11-18 06:54] LABS: Abs Immature Grans 0.04 10^3/uL (0.0-0.06); Absolute Basophil Count 0.07 10^3/uL (0.0-0.2); Absolute Eosinophil Count 0.09 10^3/uL (0.0-0.7); Absolute Lymphocyte Count 1.85 10^3/uL (1.2-3.4); Absolute Monocyte Count 0.39 10^3/uL (0.1-0.8); Absolute Neutrophil Count 7.79 10^3/uL (1.2-6.7); Basophils % 0.7 %; Eosinophils % 0.9 %; HCT 44.5 % (36.0-46.0); Immature Grans % 0.4 %; Lymphocytes % 18.1 %; MCH 31.9 pg (27.0-33.0); MCHC 33.7 % (32.0-36.0); MCV 95 fL (80-95); MPV 10.5 fL (8.0-11.0); Monocytes % 3.8 %; Neutrophils % 76.1 %; Platelet Count 229 10^3/uL (130-400); RDW 12.1 % (11.7-14.6); RDW-SD 41.7 fL; WBC 10.23 10^3/uL (4.4-10.8)
[2024-11-18 07:22] LABS: ALT 18 U/L (14-59); AST 17 U/L (15-37); Albumin 3.9 g/dL (3.4-5.0); Alkaline Phosphatase 84 U/L (46-116); Anion Gap 6.5 mmol/L (3-11); BUN 11 mg/dL (7-18); Bilirubin, Total 0.4 mg/dL (0.2-1.0); CO2 30.5 mmol/L (21.0-32.0); CREATININE 0.6 mg/dL (0.55-1.02); Chloride 107 mmol/L (98-107); Glucose 111 mg/dL (74-106); Lipase 38 U/L (<78); Magnesium 1.8 mg/dL (1.8-2.4); Potassium 3.5 mmol/L (3.5-5.1); Sodium 144 mmol/L (136-145); Total Protein 7.2 g/dL (6.4-8.2); Troponin I 10 ng/L (<or=51)
--- NOTE | 2024-11-18 07:34 | ED.PROG_ITS ---
Date of service: 11/18/24 Time of Service: 07:49 Medical Decision Making This is a 54-year-old female patient, with a history of hypertension, hyperlipidemia, who was signed out to me with right upper quadrant abdominal pain and chest pain, associate with nausea and vomiting. At the time that I took over her care, her disposition was pending laboratory studies and right upper quadrant ultrasound. She had a reassuring EKG. I independently interpreted the laboratory studies, which show no significant leukocytosis, anemia, or thrombocytopenia. The chemistry panel is without evidence of electrolyte abnormality, kidney dysfunction, or liver injury. Lipase is low, D-dimer is negative, and initial troponin is 10. Urinalysis positive for moderate blood, but no infectious symptoms. Delta troponin was also 10, making active cardiac ischemia unlikely in this patient without ongoing chest pain and with a nonischemic appearing EKG. I reviewed the patient's ultrasound and discussed the findings with radiology. She does have thickening of the gallbladder wall without evidence of stones or other findings concerning for active cholecystitis. In the setting of normal laboratory studies, I did p.o. challenge this patient successfully, and feel that she can appropriately follow-up with general surgery in the outpatient environment for her gallbladder dysfunction. On reassessment the patient has had resolution of her symptoms, and at this time, the patient has had a full medical evaluation and is safe for discharge to home. They are hemodynamically stable, ambulatory, and tolerating PO. They are understanding of the follow-up plan and return precautions. They left our facility without incident. Melina Deluca MD Medical Records Medical records reviewed: Yes I reviewed the patient's medical records. Lab Data Lab results reviewed: Yes I reviewed the patient's lab results. Quality:SDOH Health Related Social Needs: 2 No Data to Display Discharge Plan Disposition Patient Disposition: Home Condition: Stable Discharge Details Clinical Impression: Abdominal pain, RUQ, Thickening of wall of gallbladder Primary Care Provider: Coreen Stevenson ED Provider: Melina Deluca Home Meds and New Rx's Prescriptions: New ondansetron 4 mg tablet,disintegrating 4 mg PO Q8H PRNQty: 10 0RF No Action varenicline tartrate [Chantix Starting Month Box] 0.5 mg (11)- 1 mg (42) tablets,dose pack See Rx Instructions PO DIRECTED Qty: 53 0RF Rx Instructions: Take 0.5mg daily days 1 to 3, 0.5mg twice a day days 4-7, then 1mg twice a day for 11wks varenicline tartrate [Chantix Continuing Month Box] 1 mg tablet 1 mg PO BID Qty: 168 0RF omeprazole 20 mg capsule,delayed release(DR/EC) 20 mg PO DAILY triamcinolone acetonide 0.1 % cream 1 applic TP BID PRN (Reason: eczema) Qty: 80 4RF rosuvastatin 10 mg tablet 10 mg PO DAILY Qty: 90 3RF atenolol 25 mg tablet 25 mg PO DAILY Qty: 90 3RF Rx Instructions: Take 1 tablet by mouth daily Discharge Instructions Instructions: Gallbladder Diet Additional Instructions: You were seen in the emergency department today for evaluation of right upper quadrant abdominal pain and nausea with vomiting. In our department a full physical examination performed, had reassuring laboratory studies and no sign of damage to your heart, and had an ultrasound that did not show any gallstones but did show some thickening of the gallbladder wall. It is possible that the symptoms are related to your gallbladder. Please use therapeutic dosing of Tylenol (acetaminophen) & Advil (ibuprofen) in an alternating fashion as follows: Take 1000mg of Tylenol every 6 hours without missing doses- that is 4 times per day. [place] in between the Tylenol doses, take 600mg of Advil also on a 6 hour schedule, that is also 4 times per day. With this strategy, you will be taking something for fever/pain as often as every 3 hours. The daily maximum dosing of Tylenol is 4000mg, and the daily maximum dosing of Advil is 2400mg. Please note that some common cold medications & prescription pain medications may contain acetaminophen and you need to read OTC drug labels and factor that in to maximum daily doses. I have provided you with a short course of medication called Zofran to help you maintain your hydration and treat your nausea. I have also referred you to meet with general surgery to discuss next steps in workup and management of your thickened gallbladder wall. Please follow-up with your primary care provider in the next few days to discuss this visit and any symptoms that change, worsen, or persist. Thank you for allowing us to be part of your care.
[2024-11-18 07:39] LABS: D-Dimer 327 ng/mlFEU (<500)
[2024-11-18 07:40] LABS: Bilirubin Negative (Negative); Blood Moderate (Negative); Clarity Clear (Clear); Glucose Negative (Negative); Ketones Negative (Negative); Leukocyte Esterase Negative (Negative); Nitrite Negative (Negative); Urobilinogen 0.2 mg/dL (Up to 0.2)
[2024-11-18 07:50] LABS: Bacteria Negative HPF (Negative); C & S Indicated? No; Casts Negative LPF (Negative); Crystals Negative HPF (Negative); Epithelial Cells Rare HPF (Negative); Mucus Negative (Negative); WBC 0-2 HPF (0-5)
[2024-11-18 08:14] LABS: Troponin I 10 ng/L (<or=51)
== END 2024-11-18 10:26 | disposition home or self-care (01) ==
PROVIDERS: Emergency Medicine; Emergency Provider Emergency Medicine; PCP Nurse Practitioner Family
DX: K82.8 Other specified diseases of gallbladder (principal); R10.11 Right upper quadrant pain; I10 Essential (primary) hypertension; E78.5 Hyperlipidemia, unspecified
CPT/HCPCS: 00123; 80053; 83690; 93005; 96361; 96374; 96375; 99285; 76705; 81003; 81015; 83605; 83735; 84484; 85025; 85379; 93010; 99284; J2270; J2405

== ENCOUNTER 2024-12-31 06:01 | Day surgery (SDC) | payer OTHER, SELFPAY ==
--- NOTE | 2024-12-30 17:04 | W.PM.DSUDISC ---
Date of service: 12/31/24 Discharge Plan Disposition Patient Disposition: Home Condition: Good Discharge Details Reason For Visit: Cholecystectomy Attending Provider: Rhett Dorantes Primary Care Provider: Coreen Stevenson Home Meds and New Rx's Prescriptions: New tramadol 50 mg tablet 50 mg PO Q8H PRNQty: 9 0RF Rx Instructions: Take 1 tablet by mouth up to every 8 hours if needed for severe pain. Continued varenicline tartrate [Chantix Starting Month Box] 0.5 mg (11)- 1 mg (42) tablets,dose pack See Rx Instructions PO DIRECTED Qty: 53 0RF Patient Comments: on hold Rx Instructions: Take 0.5mg daily days 1 to 3, 0.5mg twice a day days 4-7, then 1mg twice a day for 11wks varenicline tartrate [Chantix Continuing Month Box] 1 mg tablet 1 mg PO BID Qty: 168 0RF Patient Comments: on hold omeprazole 20 mg capsule,delayed release(DR/EC) 20 mg PO DAILY triamcinolone acetonide 0.1 % cream 1 applic TP BID PRN (Reason: eczema) Qty: 80 4RF rosuvastatin 10 mg tablet 10 mg PO DAILY Qty: 90 3RF atenolol 25 mg tablet 25 mg PO DAILY Qty: 90 3RF Rx Instructions: Take 1 tablet by mouth daily ondansetron 4 mg tablet,disintegrating 4 mg PO Q8H PRNQty: 10 0RF Discharge Instructions Instructions: Cholecystectomy, Laparoscopic Surgery Additional Instructions: Tasha, it was very nice seeing you today, and I hope you make a quick and uneventful recovery at home. Things went very smoothly in the operating room. We were able to remove your gallbladder just as we discussed beforehand. Expect to have some pain over the incision sites, and maybe little bit in the right upper quadrant of your abdomen over the next few days. In addition to Tylenol and ibuprofen, I added a prescription for a medication called tramadol for you to use if you need it. Expect to get some bruising around the incision sites as well. That is extremely common. Ice packs will help with swelling and bruising. If you need anything at all, please do not hesitate to call, otherwise we look forward to seeing you at your postoperative visit. 1. Resume all of your medications. 2. Use oxycodone as needed for pain. 3. Okay to use tylenol and ibuprofen over the counter as needed. 4. Leave bandage in place for 24 hours, then remove. 5. Shower with warm soapy water. Pat dry. Use a bandaid if needed to protect your clothing. 6. No soaking or tub baths until I see you in the office. 7. No heavy lifting until I see you in the office. 8.Call the office (or go directly to the emergency room after hours) if you notice any of the following: Develop chills (warm to touch), or if you have a thermometer and your temperature is above 101 Difficulty breathing or difficultly swallowing Persistent vomiting Any bleeding ? exceeding one tablespoon 9. Call your physician if the site where your intravenous was started becomes red, swollen, painful, and warm to touch. Referrals: Rhett Dorantes MD [ [facility] STAFF PHYSICIAN, Surgery] - 01/17/25 9:30 am Activity:: No heavy lifting Remove Dressings/Wound Care:: 24 hours Shower/Bathe:: 24 hours Diet:: As Tolerated Discharge Orders Discharge Orders: Discharge Order (Routine); Ordered 12/30/24 Ordered By: Rhett Dorantes DS: Diagnosis Discharge Diagnosis (1) Chronic cholecystitis: Status: Acute Asessment and Plan: Outpatient post operative follow up
--- NOTE | 2024-12-30 17:05 | W.PM.OP ---
Operative Note Operative Note PRE-OP DIAGNOSIS: Chronic cholecystitis POST-OP DIAGNOSIS: same PROCEDURE: Laparoscopic cholecystectomy SURGEON: Rhett Dorantes MORNING NEWS ANCHOR: Tiffanie Gonzalez ANESTHESIA TYPE: Local By Surgeon and General LMA/ETT Refer to Anesthesia Record ESTIMATED BLOOD LOSS: 25 PATHOLOGY: other (Gallbladder) COMPLICATIONS: None Patient was transported to: PACU Patient's condition: stable Indications: Tasha is a 54-year-old woman with chronic cholecystitis and a septated gallbladder. Findings: Chronic cholecystitis Procedure Description: After satisfactory induction of general anesthesia, I prepped and draped the abdomen in usual fashion. Next, I began with a periumbilical incision. I dissected down to the fascia. A 5 mm optical viewing port was then inserted to establish pneumoperitoneum. A 5 mm 30 degree scope was reintroduced, there was no evidence of any injury from the trocar. I then placed the patient in some reverse Trendelenburg and left side down positioning. Then, with the assistance of the laparoscope, I used local anesthetic to anesthetize the midepigastric and 2 right upper quadrant port sites. A 5 mm port was placed in the right anterior axillary line, and the camera was switched to this position to upsized the umbilical port to 12 mm. 2 more 5 mm ports were placed, 1 in the mid epigastrium, 1 in the right mid abdomen. I then grasped the gallbladder fundus and elevated cephalad. There were some adhesions of greater omentum to the main body of the gallbladder that was easily dissected free. I continued this dissection down towards the gallbladder infundibulum. With the assistance of indocyanine green, I continued skeletonizing this. I worked in a lateral to medial fashion. Once I dissected the cystic duct and cystic artery, with a satisfactory critical view of safety, I doubly clipped and divided them. I then used electrocautery to dissect the gallbladder off the gallbladder fossa. I passed the gallbladder into an Endo Catch bag and removed it by way of the umbilical site. I examined the surgical field. It was hemostatic. The umbilical port was closed with a Leonard Patino wound closure device, and the remaining 5 mm ports were removed. Bandages were applied, Tasha was awoken from the anesthetic, extubated, transferred to the recovery unit. Date of Procedure: 12/31/24
[2024-12-31] VITALS (37 sets, daily range): BP systolic 144–177; BP diastolic 79–97; PULSE 53–71; RESP 11–24; TEMP 36.1–36.6; O2SAT 91–100; BMI 25.2
--- NOTE | 2024-12-31 06:49 | W.ANESPRE ---
General Info Date of Service Date Performed: 12/31/24 Height: 5 ft 2 in Weight: 62.7 kg Body Mass Index (BMI): 25.2 Surgical Procedure: Operation Date: 12/31/24 07:40 Proposed Procedure Side Surgeon p Cholecystectomy Laparoscopic Rhett Dorantes MD Meds Allergies and Home Medications Allergies Allergy/AdvReac Type Severity Reaction Status Date / Time bupropion (From Wellbutrin) AdvReac bad dreams Verified 12/31/24 06:34 Home Medication ?Medication ?Instructions ?Recorded triamcinolone acetonide 0.1 % 1 applic topical BID PRN eczema 09/02/19 topical cream #80 grams omeprazole 20 mg capsule,delayed 20 mg PO DAILY 05/13/24 release varenicline tartrate 0.5 mg (11)-1 See Rx Instructions PO DIRECTED 05/13/24 mg (42) tablets in a dose pack #53 dose pk (Chantix Starting Month Box) varenicline tartrate 1 mg tablet 1 mg PO BID #168 tabs 05/13/24 (Chantix Continuing Month Box) atenolol 25 mg tablet 25 mg PO DAILY #90 tabs 06/10/24 rosuvastatin 10 mg tablet 10 mg PO DAILY #90 tabs 06/10/24 ondansetron 4 mg disintegrating 4 mg PO Q8H PRN #10 tabs 11/18/24 tablet Current Visit Medications: Current Medications Generic Name Dose Route Start Last Admin Trade Name Freq PRN Reason Stop Dose Admin Acetaminophen 1,000 mg 12/31/24 06:00 Acetaminophen 500 Mg Tab PO 12/31/24 23:59 PREOP NATTY Celecoxib 200 mg 12/31/24 06:00 Celecoxib 200 Mg Cap PO 12/31/24 23:59 PREOP NATTY Gabapentin 600 mg 12/31/24 06:00 Gabapentin 300 Mg Cap PO 12/31/24 23:59 PREOP NATTY Hydromorphone HCl 0.2 mg 12/30/24 17:05 Hydromorphone 2 Mg/Ml Syr IVP 01/29/25 17:04 Q1H PRN PRN Ringer's Solution 1,000 mls @ 80 mls/hr 12/31/24 06:00 IV 12/31/24 23:59 INFUSION NATTY Cefazolin Sodium/Dextrose 2 gm in 50 mls @ 100 mls/hr 12/31/24 06:00 Ancef Duplex IVPB 12/31/24 23:59 PREOP NATTY IV Miscellaneous Supplies 1 each 12/31/24 06:00 Iv Access IV 12/31/24 23:59 DIRECTED NATTY Sodium Chloride 0 ml 12/31/24 06:00 Normal Saline Flush 10 Ml Syr IV 12/31/24 23:59 PRN PRN Sodium Chloride 0 ml 12/31/24 06:00 Normal Saline 10 Ml Vial IJ 12/31/24 23:59 DIRECTED PRN Sterile Water 0 ml 12/31/24 06:00 Water,Injection,Sterile 10 Ml Vial IJ 12/31/24 23:59 DIRECTED PRN Tramadol HCl 50 mg 12/30/24 17:05 Tramadol 50 Mg Tab PO 01/29/25 17:04 Q6H PRN PRN Pain PFSH Active Problems Active Problems: Problem Status Onset Code Chronic cholecystitis Acute K81.1 Abnormal uterine bleeding Acute N93.9 Cigarette smoker Chronic F17.210 Cervicalgia Chronic M54.2 Hallux rigidus of right foot Chronic M20.21 Chronic low back pain Chronic M54.50, G89.29 Atopic dermatitis Chronic L20.9 Medical History Medical History GERD (gastroesophageal reflux disease) Hyperlipidemia Essential hypertension Surgical History Surgical History History of esophagogastroduodenoscopy (EGD) (04/30/20) History of colonoscopy (04/30/20) History of bilateral tubal ligation (~1991) Tobacco Smoking/Tobacco Use Status: Current every day Tobacco Type: cigarettes Passive smoking exposure: Yes Second hand exposure: Yes Alcohol Alcohol Intake: current Alcohol intake frequency: holidays/special occasions only Alcohol type: beer and other Substance Use Substance use: Never Substance use type: does not use Prental History History 2 Para 2 Hx # Term Pregnancies Multiple births Hx # Pregnancies Ectopic pregnancies AB induced Hx Number of Living Children 2 AB spontaneous Vital Signs and Lab Results Vital Signs Most Recent Vital Signs in EMR: Temp Pulse Resp BP Pulse Ox 36.6 C 63 16 144/87 H 99 12/31/24 06:15 12/31/24 06:15 12/31/24 06:15 12/31/24 06:15 12/31/24 06:15 Imaging and Studies Imaging and Studies Study information below may be from another EMR and interpreted by another provider. Please see original notes in EMR for more complete details. EKG Summary: november 2024 Conclusion Sinus rhythm...normal P axis, V-rate 60- 99 Inferior infarct, old...Q >35mS, II III aVF Consider anteroseptal infarct...Q >30mS, dimin R, V1-V2 There are no significant changes compared to prior EKG performed on 08/10/2020 at 09:06. Stress Test Summary: mar 2021 Stress ECG Conclusion 1. The resting electrocardiogram was normal 2. Patient exercised on the Julián protocol and completed a workload of 13.48 METS, limited by fatigue 3. Normal heart rate and blood pressure response to exercise. Patient achieved 94% of predicted heart rate for age 4. Electrocardiographically there was no evidence of myocardial ischemia 5. There were no dysrhythmias Gómez Treadmill Score is 7.6 which is Low risk. Anesthesia Assessment and Plan Anesthesia History Personal History: No History of Anesthesia Complications Family History: No Family History of Anesthesia Complications Exercise Tolerance Exercise Tolerance: Metabolic Equivalents<4 Pertinent Negatives Pertinent Negatives: No Major Cardiovascular Symptoms or Complaints, No Major Pulmonary Symptoms or Complaints and No History of CVA/TIA Cardiac & Pulmonary Exam Cardiac Exam: Normal S1/S2 Heart Sounds Pulmonary Exam: Clear Bilateral Breath Sounds Cardiac and Pulmonary Comment:: lung sounds dim bilaterally Implantable Cardiac Device Does patient have a Pacemaker or an ICD?: No Airway Exam Known Difficult Airway: No Mallampati Class: 2 Mouth Opening: Normal (> 3cm) Thyromental Distance: Greater than 3 cm Neck Range of Motion: Full ROM Neck Circumference: Normal Teeth Condition: Normal Dentition ASA Classification ASA Score: ASA 2 Emergency Case?: No NPO Status NPO Status: NPO Clears >2 hours, Solids >8 hours Status Status: Not Relevant due to Medical History Anesthesia Plan Resuscitation Status: Full Code Anesthesia Technique: General Anesthesia Airway Planned: Endotracheal Tube Monitors Used: Standard Monitors Preoperative Comments:: discussed pt reflux, which is under control with meds. pt every day smoker and discussed risk of airway irritability d/t smoking
[2024-12-31] MEDS: Celecoxib 200 MG CAP PO (06:57)
[2024-12-31] MEDS: Gabapentin 300 MG CAP 600 MG PO (06:57)
[2024-12-31] MEDS: Acetaminophen 500 MG TAB 1000 MG PO (06:57)
[2024-12-31] MEDS: Lactated Ringers 1,000 ML 80 ML IV (07:15)
[2024-12-31] MEDS: Indocyanine green 25 MG VIAL 5 MG IVP (07:21)
[2024-12-31] MEDS: ceFAZolin 2 GM/50 ML BAG IVPB (07:36)
[2024-12-31] MEDS: Bupivacaine 0.25% Pres-Free W/EPI 30 ML VIAL (07:58)
--- NOTE | 2024-12-31 08:29 | GB_PTH ---
PATIENT: Tasha Mcmahan LOC: [facility] U#:[id number] AGE/SX: 54/F ROOM: RE12/31/[address]: Rhett Dorantes MD : 1970 BED: DIS: 12/31/2024 SPEC #: [id number] RECD: 12/31/24 12:51 STATUS: JENNIFER RE #: [id number] MARLEE: 12/31/24 08:[address]: Rhett Dorantes DEPT: Surgical Specimen RECD BY: Fawn Hardin ENTERED: 12/31/24 12:51 SP TYPE: GB SALAZAR DR: YELITZA Ny Tissues: 1 - GALLBLADDER Procedures: GROSS AND MICRO LEVEL 3 Comments: [id number]
[2024-12-31] MEDS: HYDROmorphone 2 MG/ML SYR IVP ×3 (09:06→09:39)
[2024-12-31] MEDS: Ondansetron 4 MG/2 ML VIAL IVP (09:36)
--- NOTE | 2024-12-31 09:57 | W.ANESPOSTOP ---
Postoperative Evaluation Date, Time and Location Date Performed: 12/31/24 Time Performed: 09:57 Patient Location: PACU Vital Signs Most Recent Imported Vital Signs: Most Recent Vital Signs Temp Pulse Resp BP Pulse Ox 36.4 C L 67 18 150/87 H 91 L 12/31/24 09:42 12/31/24 09:50 12/31/24 09:50 12/31/24 09:48 12/31/24 09:50 Pain Score Most Recent Pain Score: Most Recent Pain Score Pain Level 8 12/31/24 09:42 Assessment Mental Status: Awake (Alert & Oriented to Patient Baseline) Airway and Respiratory Function: Patent airway with normal (patient baseline) respiratory exam Cardiovascular Function: Hemodynamically Stable Hydration Status: Adequately Hydrated Nausea & Vomiting: No Nausea or Vomiting Pain: Pain is tolerable per patient (pt received PRN pain medication an reported pain under control at time of assessment ) Peripheral Nerve Block: Patient did not receive a nerve block
== END 2024-12-31 11:45 | disposition home or self-care (01) ==
LOC: SUR 06:02
PROVIDERS: PCP Nurse Practitioner Family; Visit Provider Surgery
PROC: 0FT44ZZ Resection of Gallbladder, Percutaneous Endoscopic Approach (ICD-10-PCS; CPT 47562; principal; 2024-12-31 07:30)
DX: K80.10 Calculus of gallbladder with chronic cholecystitis without obstruction (principal); K21.9 Gastro-esophageal reflux disease without esophagitis; F17.210 Nicotine dependence, cigarettes, uncomplicated
CPT/HCPCS: 47562; 88304; J0131; J0690; J1100; J1171; J1885; J2003; J2405; J2704; J3010; J3475

== ENCOUNTER 2025-01-03 05:00 | Emergency (ER) | payer OTHER, SELFPAY ==
[2025-01-03 05:03] VITALS: BP 177/96; PULSE 78; RESP 18; TEMP 36.5; O2SAT 96
[2025-01-03 05:19] LABS: Abs Immature Grans 0.04 10^3/uL (0.0-0.06); HCT 47.6 % (36.0-46.0); HGB 15.8 g/dL (11.2-15.7); Immature Grans % 0.3 %; MCH 31.5 pg (27.0-33.0); MCHC 33.2 % (32.0-36.0); MCV 95 fL (80-95); MPV 10.2 fL (8.0-11.0); Platelet Count 262 10^3/uL (130-400); RBC 5.02 10^6/uL (3.93-5.22); RDW 12.3 % (11.7-14.6); RDW-SD 42.5 fL; WBC 12.86 10^3/uL (4.4-10.8)
[2025-01-03 05:22] LABS: Glucose Negative (Negative)
--- NOTE | 2025-01-03 05:22 | W.ED.GENAD ---
Discharge Plan Discharge Details Chief Complaint: Abd Prob Clinical Impression: Post-operative pain Primary Care Provider: Coreen Stevenson ED Provider: Miguel Angel Valles Home Meds and New Rx's Prescriptions: No Action varenicline tartrate [Chantix Starting Month Box] 0.5 mg (11)- 1 mg (42) tablets,dose pack See Rx Instructions PO DIRECTED Qty: 53 0RF Patient Comments: on hold Rx Instructions: Take 0.5mg daily days 1 to 3, 0.5mg twice a day days 4-7, then 1mg twice a day for 11wks varenicline tartrate [Chantix Continuing Month Box] 1 mg tablet 1 mg PO BID Qty: 168 0RF Patient Comments: on hold omeprazole 20 mg capsule,delayed release(DR/EC) 20 mg PO DAILY triamcinolone acetonide 0.1 % cream 1 applic TP BID PRN (Reason: eczema) Qty: 80 4RF rosuvastatin 10 mg tablet 10 mg PO DAILY Qty: 90 3RF atenolol 25 mg tablet 25 mg PO DAILY Qty: 90 3RF Rx Instructions: Take 1 tablet by mouth daily ondansetron 4 mg tablet,disintegrating 4 mg PO Q8H PRNQty: 10 0RF tramadol 50 mg tablet 50 mg PO Q8H PRNQty: 9 0RF Rx Instructions: Take 1 tablet by mouth up to every 8 hours if needed for severe pain. HPI General Date/Time Provider Initiated Documentation: 01/03/25 05:02. HPI Narrative: This is a very pleasant 54-year-old female with a past medical history of hypertension, high cholesterol, who presents today for evaluation of abdominal pain. Patient had a nonemergent cholecystectomy on 12/30/[address] Dorantes. Review of records indicate that the surgery went well and the postoperative phase was uneventful. After discharge the patient had been doing well she had some mild achiness and cramping in her abdomen. Over the next 3 to 4 days she developed gradual worsening of the achiness and cramping which developed into right lower quadrant and lower mid quadrant abdominal pain that became quite significant. She did try taking stool softeners, including an enema. She did have a bowel movement of soft stool. Unfortunately this did not improve her symptoms at all. Over the last 12 hours she has had about 20 episodes of vomiting, the pain has been worsening. She admits to chills but denies any fever. She denies any hematochezia, melena, or acholic stool. She has taken Tylenol without any improvement of her symptoms. Related Data Home Medications ?Medication ?Instructions ?Recorded ?Confirmed triamcinolone acetonide 0.1 % 1 applic topical BID PRN eczema 09/02/19 01/03/25 topical cream #80 grams omeprazole 20 mg capsule,delayed 20 mg PO DAILY 05/13/24 01/03/25 release varenicline tartrate 0.5 mg (11)-1 See Rx Instructions PO DIRECTED 05/13/24 01/03/25 mg (42) tablets in a dose pack #53 dose pk (Chantix Starting Month Box) varenicline tartrate 1 mg tablet 1 mg PO BID #168 tabs 05/13/24 12/27/24 (Chantix Continuing Month Box) atenolol 25 mg tablet 25 mg PO DAILY #90 tabs 06/10/24 01/03/25 rosuvastatin 10 mg tablet 10 mg PO DAILY #90 tabs 06/10/24 01/03/25 ondansetron 4 mg disintegrating 4 mg PO Q8H PRN #10 tabs 11/18/24 01/03/25 tablet tramadol 50 mg tablet 50 mg PO Q8H PRN #9 tabs 12/31/24 01/03/25 Held on 01/03/25. Instructions: Pt Stopped/Never Started Previous Rx's ?Medication ?Instructions ?Recorded triamcinolone acetonide 0.1 % 1 applic topical BID PRN eczema 09/02/19 topical cream #80 grams varenicline tartrate 0.5 mg (11)-1 See Rx Instructions PO DIRECTED 05/13/24 mg (42) tablets in a dose pack #53 dose pk (Chantix Starting Month Box) varenicline tartrate 1 mg tablet 1 mg PO BID #168 tabs 05/13/24 (Chantix Continuing Month Box) atenolol 25 mg tablet 25 mg PO DAILY #90 tabs 06/10/24 rosuvastatin 10 mg tablet 10 mg PO DAILY #90 tabs 06/10/24 ondansetron 4 mg disintegrating 4 mg PO Q8H PRN #10 tabs 11/18/24 tablet tramadol 50 mg tablet 50 mg PO Q8H PRN #9 tabs 12/31/24 Held on 01/03/25. Instructions: Pt Stopped/Never Started Allergies Allergy/AdvReac Type Severity Reaction Status Date / Time bupropion (From Wellbutrin) AdvReac bad dreams Verified 01/03/25 05:06 General Stated Complaint: Abd Prob MARIN: 3 Exam Narrative Exam Narrative: 1.Const: Well-nourished, Well-developed, appearing stated age 2.Eyes: PERRL, no conjunctival injection, and symmetrical lids. 3.ENT: Atraumatic external nose and ears. Dry MM. Neck: Symmetric, trachea midline, No thyromegaly. 4.CVS: +S1/S2, Peripheral pulses 2+ and equal in all extremities. Brisk capillary refill in all extremities. 5.RESP: Unlabored respiratory effort. Clear to auscultation bilaterally. No wheezes rales or rhonchi 6.GI: Soft, nondistended. No guarding or rebound. Bowel sounds present but limited. Mild to moderate tenderness and voluntary guarding in the right lower quadrant and middle periumbilical region. Mild achiness in the right upper quadrant. No left-sided tenderness. 7.MSK: Normocephalic/Atraumatic, Extremities w/o deformity or ttp No cyanosis or clubbing, Normal movement of all extremities 8.Skin: Warm, Dry. No rashes or lesions. 9.Neuro: sales intern II-XII grossly intact. Sensation grossly intact, no focal neurologic deficits. 10.Psych: (AAO) x3. Appropriate mood and affect Course Vital Signs Vital signs: Vital Signs Temperature 36.5 C 01/03/25 05:03 Pulse 78 01/03/25 05:03 Respiratory Rate 18 01/03/25 05:03 Blood Pressure 177/96 H 01/03/25 05:03 Pulse Oximetry 96 01/03/25 05:03 Temperature 36.5 C 01/03/25 05:03 Temperature Source Tympanic 01/03/25 05:03 Pulse 78 01/03/25 05:03 Respiratory Rate 18 01/03/25 05:03 Blood Pressure 177/96 H 01/03/25 05:03 Blood Pressure Position Sitting 01/03/25 05:03 Pulse Oximetry 96 01/03/25 05:03 Oxygen Delivery Method Room Air 01/03/25 05:03 Oxygen Flow Rate 0 01/03/25 05:03 Lab/Test Results Lab/Test Results: Laboratory Tests Range/Units 01/03/25 05:11 WBC (4.4-10.8) 10^3/uL 12.86 H RBC (3.93-5.22) 10^6/uL 5.02 Hgb (11.2-15.7) g/dL 15.8 H Hct (36.0-46.0) % 47.6 H MCV (80-95) fL 95 MCH (27.0-33.0) pg 31.5 MCHC (32.0-36.0) % 33.2 RDW (11.7-14.6) % 12.3 Plt Count (130-400) 10^3/uL 262 MPV (8.0-11.0) fL 10.2 Immature Gran % % 0.3 Neutrophils % % 53.4 Lymphocytes % % 37.4 Monocytes % % 6.3 Eosinophils % % 1.9 Basophils % % 0.7 Nucleated RBC % (0.0-0.3) % 0.0 Absolute Neutrophils (1.2-6.7) 10^3/uL 6.87 H Absolute Lymphocytes (1.2-3.4) 10^3/uL 4.81 H Absolute Monocytes (0.1-0.8) 10^3/uL 0.81 H Absolute Eosinophils (0.0-0.7) 10^3/uL 0.24 Absolute Basophils (0.0-0.2) 10^3/uL 0.09 VBG Lactate (<or=2.0) mmol/L 0.9 Medical Decision Making This is a very pleasant 54-year-old female with a past medical history of hypertension, high cholesterol, who presents today for evaluation of abdominal pain. Patient had a nonemergent cholecystectomy on 12/30/[address] Dorantes. Review of records indicate that the surgery went well and the postoperative phase was uneventful. After discharge the patient had been doing well she had some mild achiness and cramping in her abdomen. Over the next 3 to 4 days she developed gradual worsening of the achiness and cramping which developed into right lower quadrant and lower mid quadrant abdominal pain that became quite significant. She did try taking stool softeners, including an enema. She did have a bowel movement of soft stool. Unfortunately this did not improve her symptoms at all. Over the last 12 hours she has had about 20 episodes of vomiting, the pain has been worsening. She admits to chills but denies any fever. She denies any hematochezia, melena, or acholic stool. She has taken Tylenol without any improvement of her symptoms. Exam demonstrates tenderness in the right lower and middle quadrants. Minimal right upper quadrant achiness. Dry mucous membranes. Differential is concerning for potential postoperative bleeding, seromas, or less likely abscess. Constipation and small bowel obstruction is of concern as well. Will get CT imaging, rehydrate, treat her pain with Toradol, monitor closely and reassess. She has no urinary symptoms to suspect UTI. No chest pain. 6:59 AM Laboratory workup has returned normal, no significant elevation in the white count. No bandemia. Electrolytes normal, lactate and procalcitonin normal. Urinalysis does show blood but no infection. Patient feels somewhat better after Toradol. Still pending CT read at this time. Patient will be signed out to my colleague Dr. Duncan for follow-up on imaging. [facility] All Active Problems (Updated 01/03/25 @ 07:00 by Miguel Angel Valles DO) Post-operative pain (Acute) Chronic cholecystitis (Acute) Abnormal uterine bleeding (Acute) Cigarette smoker (Chronic) Annual LDCT Cervicalgia (Chronic) Hallux rigidus of right foot (Chronic) Chronic low back pain (Chronic) Atopic dermatitis (Chronic) Medical History (Updated 01/03/25 @ 07:00 by Miguel Angel Valles DO) GERD (gastroesophageal reflux disease) Hyperlipidemia Essential hypertension Surgical History (Updated 01/01/25 @ 07:34 by Nicky Stanford) History of laparoscopic cholecystectomy (~12/2024) History of esophagogastroduodenoscopy (EGD) (04/30/20) History of colonoscopy (04/30/20) History of bilateral tubal ligation (~1991) Family History (Updated 05/14/24 @ 09:45 by Ericka Jefferson) Mother Hyperlipidemia Alcohol abuse Depression Hypertension Father , was 76 lung problems with sepsis, pneumonia 05/06/24 Heart disease Hyperlipidemia Stroke Alcohol abuse Myocardial infarction x 4 Hypertension Type 2 diabetes mellitus COPD (chronic obstructive pulmonary disease) Sister Alcohol abuse Substance abuse Hypertension Sister Alcohol abuse Hypertension Brother Substance abuse Daughter Anxiety Daughter Depression Paternal Grandfather No problems noted. Paternal Grandmother Hyperlipidemia Hypertension Heart disease Maternal Grandfather Alcohol abuse Maternal Grandmother , In her 50s of [place] Hypertension Hyperlipidemia Type 2 diabetes mellitus Heart disease Stroke Myocardial infarction Social History Smoking/Tobacco Use Status: Current every day Tobacco Type: cigarettes Tobacco: How many years used: 30 Quit status: considering quitting Second Hand Exposure: Yes Smoking risk assessment performed?: Yes Alcohol Intake: current Alcohol Intake frequency: holidays/special occasions only Alcohol type: beer and other Drug use: Never Substance use type: does not use Adopted: No Caregiver/Support person: No Foster care: No Household members: spouse Housing: house Number of Children: 2 number of grandchildren: 4 Communication Needs: Corrective Lenses Education Level: high school Do you need help understanding health information?: Rarely current occupation: [employer] Pets and animals: No Sexually active: Yes Do you think of yourself as: straight/heterosexual Current gender identity: female Other: self employed What is your relationship status?: How often do you talk on the phone with friends or family?: three or more times per week How often do you get together with friends or relatives?: once per week How often do you attend episcopal or presybeterian services?: decline to answer Do you belong to any clubs or organized social groups?: no Panel score (0-1 are the most socially isolated patients): 2 What type of physical activity do you participate in: none Estela/Yazdanism: None Special estela needs: No Agree to transfusion: Yes Seatbelt use: always Helmet use: Yes Drive intox or ride w/intox rolloff truck driver: No Working smoke detector in home: Yes Carbon monox detector in home: Yes Firearms in home: Yes Firearms unloaded and locked: Yes Do you feel safe at home: Yes Do you feel safe in your relationship?: Yes Female Reproductive History Menstrual control method: permanent sterilization (BTL) Menopause type: natural Date of menopause: 06/11/20 History History 2 Para 2 Hx # Term Pregnancies Multiple births Hx # Pregnancies Ectopic pregnancies AB induced Hx Number of Living Children 2 AB spontaneous
[2025-01-03 05:26] LABS: C & S Indicated? No; RBC 20-50 HPF (0-2); WBC Negative HPF (0-5)
[2025-01-03 05:34] LABS: ALT 31 U/L (14-59); AST 19 U/L (15-37); Albumin 4.0 g/dL (3.4-5.0); Alkaline Phosphatase 77 U/L (46-116); Anion Gap 11.9 mmol/L (3-11); BUN 11 mg/dL (7-18); Bilirubin, Total 0.8 mg/dL (0.2-1.0); CO2 26.1 mmol/L (21.0-32.0); Calcium 9.3 mg/dL (8.5-10.1); Chloride 105 mmol/L (98-107); Estimated GFR 102.71 (mL/min/1.73m2); Glucose 122 mg/dL (74-106); Potassium 3.9 mmol/L (3.5-5.1); Sodium 143 mmol/L (136-145); Total Protein 7.4 g/dL (6.4-8.2)
[2025-01-03] MEDS: Omnipaque 350 MG/ML 100 ML BTL 75 ML IJ (05:38)
[2025-01-03] MEDS: Normal Saline - Diluent 50 ML VIAL IJ (05:38)
[2025-01-03] MEDS: Ketorolac 15 MG/ML VIAL IVP (05:39)
[2025-01-03] MEDS: Normal Saline 1,000 ML 1000 ML IV (05:39)
--- NOTE | 2025-01-03 05:42 | DI.CT_ITS ---
Exam(s) CT ABDOMEN PELVIS W EXAM: CT ABDOMEN PELVIS W CLINICAL HISTORY: RUQ pain, cholecystectomy on 12/30/24. TECHNIQUE: Imaging Protocol: Axial computed tomography images with coronal and sagittal reformatted images were created and reviewed CONTRAST MATERIAL: Intravenous: Omnipaque 350 Contrast volume:75 ml Oral: no COMPARISON: US US ABDOMEN LIMITED from 11/18/2024 FINDINGS: ABDOMEN and PELVIS: Lung Bases: No acute findings. Emphysematous changes. Liver: Mild hepatic steatosis. No suspicious mass. Gallbladder and biliary tract: Interval cholecystectomy. Minimal residual fluid. No biliary dilation. Pancreas: Normal density. No abnormal calcifications or inflammatory process. No evidence of mass. Spleen: Normal. Kidneys: Normal size, contour and axis. No radiodense stones. No obstructive uropathy. No suspicious masses seen. Adrenal glands: No masses seen. Vasculature: Abdominal aorta non-dilated. Soft tissues: Mild edema in the subcutaneous fat along the right abdominal wall. Bladder: Nearly empty. No gross wall thickening. No calculi.No focal mass. Bowel: No obstruction. No bowel wall thickening. The appendix is not seen and may be obscured by surrounding fluid. The right colon is nearly free of stool. There is increased quantity of stool seen throughout the descending colon. The rectosigmoid shows a small amount of stool. Peritoneal cavity: Large quantity of fluid seen in the low pelvis. There is a small amount of fluid along the paracolic gutters. Some high density material is noted posteriorly. No evidence of abscess. No mesenteric inflammatory response. No free air. Bones: Unremarkable for age. Reproductive organs: Prominent left-sided periuterine vessels. Uterus and ovaries are unremarkable. Lymph nodes: No pathologically enlarged lymph nodes. IMPRESSION:: Fluid in the pelvis with some high density material may be postoperative. There is minimal residual fluid in the right upper quadrant without focal collection. The preliminary [facility] report was reviewed. RADIATION DOSE DELIVERED: 308.58mGy.cm Total DLP DATA REPOSITORY: All CT scans at this facility are submitted to the National Radiology Data Registry (NRDR) Dose Index Registry (DIR) with the [employer] (ACR). RADIATION OPTIMIZATION: All CT scans at this facility use at least one of these dose optimization techniques: automated exposure control; mA and/or kV adjustment per patient size (includes targeted exams where dose is matched to clinical indication); or iterative reconstruction.
[2025-01-03 06:40] LABS: Procalcitonin < 0.10 ng/mL
[2025-01-03] MEDS: ACETAMINOPHEN 1,000 MG/100 ML BAG 400 MG IVPB (07:29)
[2025-01-03] MEDS: Normal Saline Flush 10 ML SYR IVP (07:30)
[2025-01-03] MEDS: Normal Saline 1,000 ML 150 ML IV (07:30)
--- NOTE | 2025-01-03 08:23 | DI.[facility]_ITS ---
PROCEDURE INFORMATION: Exam: CT Abdomen And Pelvis With Contrast Exam date and time: 01/03/2025 5:21 AM Age: 54 years old Clinical indication: Abdominal pain; Localized; Right upper quadrant (ruq); Prior surgery; Surgery date: 3-7 days post-operative; Ruq pain, cholecystectomy on 12/30/24 TECHNIQUE: Imaging protocol: Computed tomography of the abdomen and pelvis with contrast. Radiation optimization: All CT scans at this facility use at least one of these dose optimization techniques: automated exposure control; mA and/or kV adjustment per patient size (includes targeted exams where dose is matched to clinical indication); or iterative reconstruction. Contrast material: [id number]; Contrast volume: 75 ml; Contrast route: INTRAVENOUS (IV); COMPARISON: US ABDOMEN LIMITED 11/18/2024 8:37 AM FINDINGS: Lungs: Severe chronic lung disease Liver: The liver is diffusely low in attenuation, compatible with fatty infiltration. Gallbladder and biliary ducts: Cholecystectomy Pancreas: Unremarkable. No ductal dilation. Spleen: Unremarkable. No splenomegaly. Adrenal glands: Normal. No mass. Kidneys and ureters: Unremarkable. No hydronephrosis. Stomach and bowel: Wall of the right hemicolon is thickened, colitis versus incomplete distension Appendix: No evidence of appendicitis. Intraperitoneal space: Mild infiltration of the mesenteric fat along the right colonic gutter Vasculature: Diffuse mild atherosclerotic disease is present. Lymph nodes: Unremarkable. No enlarged lymph nodes. Urinary bladder: Unremarkable as visualized. Reproductive: Prominent periuterine vessels Bones/joints: Unremarkable. No acute fracture. Soft tissues: Unremarkable. Other findings: Large amount of fluid in the pelvis may be postoperative. Recommend further evaluation clinically; Small amount of fluid in the right upper quadrant IMPRESSION: 1. Possible right maxine colitis 2. Cholecystectomy 3. Free fluid in the abdomen and pelvis Dictated and Authenticated by: Josefina García MD. Orderin Reena Michelle MD
--- NOTE | 2025-01-03 08:27 | W.EDPROG ---
Date of service: 01/03/25 Time of Service: 08:28 Medical Decision Making Patient signed out to me pending CT results. CT shows suspicious for possible right Stanley colitis, free fluid in the abdomen pelvis which is likely secondary to her recent surgery. Patient is feeling better, has minimal tenderness in the lower quadrants. No guarding or rebound. Discussed results with her and given reassuring workup feel she is stable for discharge home follow-up with surgery, return precautions given Discharge Plan Disposition Patient Disposition: Home Discharge Details Clinical Impression: Post-operative pain Primary Care Provider: Coreen Stevenson ED Provider: Celestino Duncan Home Meds and New Rx's Prescriptions: Continued varenicline tartrate [Chantix Starting Month Box] 0.5 mg (11)- 1 mg (42) tablets,dose pack See Rx Instructions PO DIRECTED Qty: 53 0RF Patient Comments: on hold Rx Instructions: Take 0.5mg daily days 1 to 3, 0.5mg twice a day days 4-7, then 1mg twice a day for 11wks varenicline tartrate [Chantix Continuing Month Box] 1 mg tablet 1 mg PO BID Qty: 168 0RF Patient Comments: on hold omeprazole 20 mg capsule,delayed release(DR/EC) 20 mg PO DAILY triamcinolone acetonide 0.1 % cream 1 applic TP BID PRN (Reason: eczema) Qty: 80 4RF rosuvastatin 10 mg tablet 10 mg PO DAILY Qty: 90 3RF atenolol 25 mg tablet 25 mg PO DAILY Qty: 90 3RF Rx Instructions: Take 1 tablet by mouth daily ondansetron 4 mg tablet,disintegrating 4 mg PO Q8H PRNQty: 10 0RF tramadol 50 mg tablet 50 mg PO Q8H PRNQty: 9 0RF Rx Instructions: Take 1 tablet by mouth up to every 8 hours if needed for severe pain. Discharge Instructions Additional Instructions: Your CAT scans did not show any emergent findings, you do have findings that are consistent with recent surgery that will resolve over time. Follow-up with surgery as scheduled. If you feel more ill or have new symptoms such as high fevers return to the emergency department for reevaluation
[2025-01-03 08:31] VITALS: BP 137/66; PULSE 61; RESP 16; TEMP 36.5; O2SAT 97
== END 2025-01-03 08:35 | disposition home or self-care (01) ==
PROVIDERS: Student in an Organized Health Care Education/Training Program; Emergency Provider Emergency Medicine; PCP Nurse Practitioner Family
DX: R10.31 Right lower quadrant pain (principal); G89.18 Other acute postprocedural pain
CPT/HCPCS: 99284; 99285; 96375; 00123; 80053; 84145; 96361; 96365; 74177; 81003; 81015; 83605; 85025; J0131; J1885; J3490

== ENCOUNTER 2025-01-04 07:29 | Observation (INO) | payer OTHER, SELFPAY ==
[2025-01-04] VITALS (10 sets, daily range): BP systolic 166–200; BP diastolic 71–132; PULSE 52–72; RESP 16–20; TEMP 36.2–37; O2SAT 93–100
--- NOTE | 2025-01-04 08:11 | W.ED.GENAD ---
Discharge Plan Disposition Patient Disposition: Admit to [facility] Condition: Stable Discharge Details Clinical Impression: Postoperative abdominal pain Admit Date/Time: 01/04/25 09:56 Admit Provider: Rhett Dorantes Attending Provider: Rhett Dorantes Primary Care Provider: Coreen Stevenson ED Provider: Megan Perry General Mode of arrival: ambulatory. Date/Time Provider Initiated Documentation: 01/04/25 07:31. Limitations to Documentation: no limitations. Information obtained by: patient, family, RN notes reviewed and old records reviewed. HPI Narrative: 54-year-old female presents to the ER with a chief complaint of right lower quadrant, right groin pain which radiates into her back status post laparoscopic cholecystectomy on 721 which was 5 days ago. She was seen here in the emergency department last night had labs urinalysis and CT abdomen pelvis which showed some colitis, free fluid in the gutter which could represent some postsurgical changes. Please see official report. She reports increased abdominal pain after having a loose bowel movement this morning. She did ambulate to the bathroom with difficulty to give a urine sample. She reports that pain has been constant today. She did take a tramadol and Tylenol this morning prior to arrival. She denies any fever or chills she does report vomiting but none in the last 12 hours. Related Data Home Medications ?Medication ?Instructions ?Recorded ?Confirmed triamcinolone acetonide 0.1 % 1 applic topical BID PRN eczema 09/02/19 01/04/25 topical cream #80 grams Held on 01/04/25. Instructions: not needed omeprazole 20 mg capsule,delayed 20 mg PO DAILY 05/13/24 01/04/25 release varenicline tartrate 0.5 mg (11)-1 See Rx Instructions PO DIRECTED 05/13/24 01/03/25 mg (42) tablets in a dose pack #53 dose pk (Chantix Starting Month Box) varenicline tartrate 1 mg tablet 1 mg PO BID #168 tabs 05/13/24 01/04/25 (Chantix Continuing Month Box) Held on 01/04/25. Instructions: not know atenolol 25 mg tablet 25 mg PO DAILY #90 tabs 06/10/24 01/04/25 rosuvastatin 10 mg tablet 10 mg PO DAILY #90 tabs 06/10/24 01/04/25 ondansetron 4 mg disintegrating 4 mg PO Q8H PRN #10 tabs 11/18/24 01/04/25 tablet Held on 01/04/25. Instructions: Pt Stopped/Never Started tramadol 50 mg tablet 50 mg PO Q8H PRN #9 tabs 12/31/24 01/04/25 Previous Rx's ?Medication ?Instructions ?Recorded triamcinolone acetonide 0.1 % 1 applic topical BID PRN eczema 09/02/19 topical cream #80 grams Held on 01/04/25. Instructions: not needed varenicline tartrate 0.5 mg (11)-1 See Rx Instructions PO DIRECTED 05/13/24 mg (42) tablets in a dose pack #53 dose pk (Chantix Starting Month Box) varenicline tartrate 1 mg tablet 1 mg PO BID #168 tabs 05/13/24 (Chantix Continuing Month Box) Held on 01/04/25. Instructions: not know atenolol 25 mg tablet 25 mg PO DAILY #90 tabs 06/10/24 rosuvastatin 10 mg tablet 10 mg PO DAILY #90 tabs 06/10/24 ondansetron 4 mg disintegrating 4 mg PO Q8H PRN #10 tabs 11/18/24 tablet Held on 01/04/25. Instructions: Pt Stopped/Never Started tramadol 50 mg tablet 50 mg PO Q8H PRN #9 tabs 12/31/24 Allergies Allergy/AdvReac Type Severity Reaction Status Date / Time bupropion (From Wellbutrin) AdvReac bad dreams Verified 01/03/25 05:06 General Stated Complaint: FlankPain MARIN: 3 Review of Systems All systems reviewed & are unremarkable except as noted in HPI and below Gastrointestinal Gastrointestinal: Reports as per HPI, Reports abdominal pain, Reports loose stools, Reports nausea and Reports vomiting (None since yesterday) Musculoskeletal Musculoskeletal: Reports as per HPI, Reports back pain and Reports other (Pain radiates into right groin and right lower lumbar) Exam Narrative Exam Narrative: Constitutional: Alert and oriented x3. Appears stated age. Normal body habitus. Head: Normocephalic, no trauma. Eyes: Pupils PERRL, EOM's intact. Eyelids symmetrical without lesions, discharge, or swelling. Chest: RRR, Normal S1, S2, distal pulses intact. Resp: Lungs clear to auscultation bilaterally, no wheezes, rales, or rhonchi. Abdomen: Soft, non-distended, hyper active bowel sounds all 4 quads. New laparoscopic incisions noted, no surrounding erythema induration or discharge. She does have some guarding and tenderness with palpation to her left lower quadrant and right lower quadrant. Musculoskeletal: Normal gait, Moves all 4 extremities without difficulty. Skin: No suspicious rashes or lesions. Capillary refill less than 2 sec. Neurologic: Cranial nerves II-XII intact. Alert and oriented x 3. Motor: No deficits noted. Hematologic/Lymphatic: No ecchymosis, no lymphadenopathy. Course Vital Signs Vital signs: Vital Signs Temperature 36.7 C 01/04/25 07:42 Pulse 58 L 01/04/25 07:42 Respiratory Rate 20 01/04/25 07:42 Blood Pressure 200/97 H 01/04/25 07:42 Pulse Oximetry 98 01/04/25 07:42 Temperature 36.7 C 01/04/25 07:42 Pulse 58 L 01/04/25 07:42 Respiratory Rate 20 01/04/25 07:42 Blood Pressure 200/97 H 01/04/25 07:42 Pulse Oximetry 98 01/04/25 07:42 Oxygen Delivery Method Room Air 01/04/25 07:42 Oxygen Flow Rate 0 01/04/25 07:42 Medical Decision Making 54-year-old female presents to the ER with a chief complaint of right lower quadrant, right groin pain which radiates into her back status post laparoscopic cholecystectomy on 721 which was 5 days ago. She was seen here in the emergency department last night had labs urinalysis and CT abdomen pelvis which showed some colitis, free fluid in the gutter which could represent some postsurgical changes. Please see official report. She reports increased abdominal pain after having a loose bowel movement this morning. She did ambulate to the bathroom with difficulty to give a urine sample. She reports that pain has been constant today. She did take a tramadol and Tylenol this morning prior to arrival. She denies any fever or chills she does report vomiting but none in the last 12 hours. Workup ordered including CBC CMP lactate PT PTT urinalysis to compare with yesterday's labs. 1L NS at 500cc/hr, [id number]. 0826: Contact made with Dr. Dorantes who was contacted by patient's family prior to my evaluation. He recommends repeat lipase and LFT's. and stool studies, orders placed. 0905: Patient returns from CT informed by ER staff patient still c/o moderate pain after 2 mg Morphine, an additional 2mg IV ordered Q1 hr PRN for a total of 6mg. Lidocaine patch also ordered for Right lower lumbar area. Repeat labs are reassuring white blood cell count is 12.29, absolute neutrophils 7.93 lymphocytes 3.61, PT PTT within normal limits lactate within normal limits at 1.5, sodium 142 potassium slightly low at 3.4, anion gap 11.6 BUN and creatinine within normal limits GFR is 106, glucose 121 LFTs are within normal limits. Lipase 31 which is also within normal limits urinalysis is pending at this time. 0921: On patient re-evaluation, she is still in a moderate-severe amount of pain. Discussed reassuring labs with her and family and pending UA and CT results. She is Hypertensive however, she did not take her medications this am. CT shows moderate ascites in the pelvis. A non-obstructing kidney stone in renal pelvis, no ureter stone. I did discuss admission with patient who verbalized understanding is in agreement with the plan. Dr. Dorantes agrees to accept patient for admission. Dr. Rhett Dorantes at bedside for patient evaluation plan is to admit patient for postoperative abdominal pain. Patient is aware of the plan and is in agreement with the plan. She is requesting more ice packs. This text was generated using [employer] dictation system, please disregard any oddities of phrase or misspellings. Patient was transported up to floor in hemodynamically stable condition. Medical Records Medical records reviewed: Yes I reviewed the patient's medical records. Imaging Data Radiologic Study: Imaging: CT Scan Radiologist's impression: [facility] report: IMPRESSION: Cholecystectomy. No fluid in the gallbladder fossa Punctate nonobstructing left renal calculus. No ureteral calculus. Moderate ascites in the pelvis Thank you for allowing us to participate in the care of your patient. Dictated and Authenticated by: Ania Diaz MD Lab Data Lab results reviewed: Yes I reviewed the patient's lab results. Labs: Laboratory Tests Range/Units 01/04/25 01/04/25 01/04/25 08:00 08:15 08:35 WBC (4.4-10.8) 10^3/uL 12.29 H RBC (3.93-5.22) 10^6/uL 4.72 Hgb (11.2-15.7) g/dL 15.0 Hct (36.0-46.0) % 44.3 MCV (80-95) fL 94 MCH (27.0-33.0) pg 31.8 MCHC (32.0-36.0) % 33.9 RDW (11.7-14.6) % 11.9 Plt Count (130-400) 10^3/uL 233 MPV (8.0-11.0) fL 10.5 Immature Gran % % 0.3 Neutrophils % % 64.5 Lymphocytes % % 29.4 Monocytes % % 4.1 Eosinophils % % 1.1 Basophils % % 0.6 Nucleated RBC % (0.0-0.3) % 0.0 Absolute Neutrophils (1.2-6.7) 10^3/uL 7.93 H Absolute Lymphocytes (1.2-3.4) 10^3/uL 3.61 H Absolute Monocytes (0.1-0.8) 10^3/uL 0.50 Absolute Eosinophils (0.0-0.7) 10^3/uL 0.14 Absolute Basophils (0.0-0.2) 10^3/uL 0.07 PT (9.1-11.1) sec 11.1 INR (0.9-1.1) 1.1 APTT (20.6-30.2) sec 21.9 VBG Lactate (<or=2.0) mmol/L 1.5 Sodium (136-145) mmol/L 142 Potassium (3.5-5.1) mmol/L 3.4 L Chloride (98-107) mmol/L 105 Carbon Dioxide (21.0-32.0) mmol/L 25.4 Anion Gap (3-11) mmol/L 11.6 H BUN (7-18) mg/dL 9 Creatinine (0.55-1.02) mg/dL 0.6 Est GFR (CKD-EPI 2020) (mL/min/1.73m2) 106.60 Glucose (74-106) mg/dL 121 H Calcium (8.5-10.1) mg/dL 9.1 Total Bilirubin (0.2-1.0) mg/dL 0.9 AST (15-37) U/L 17 ALT (14-59) U/L 27 Alkaline Phosphatase (46-116) U/L 76 Total Protein (6.4-8.2) g/dL 7.2 Albumin (3.4-5.0) g/dL 4.1 Lipase (<78) U/L 31 Urine Color (Yellow) Yellow Urine Clarity (Clear) Clear Urine pH (5-8) 5.5 Ur Specific [place] (1.005-1.025) >= 1.030 H Urine Protein (Neg-Trace) mg/dL >=300 H Urine Ketones (Negative) mg/dL 15 H Urine Blood (Negative) Large H Urine Nitrite (Negative) Negative Urine Bilirubin (Negative) Small H Urine Urobilinogen (Up to 0.2) mg/dL 0.2 Ur Leukocyte Esterase (Negative) Negative Urine RBC (0-2) HPF 20-50 H Urine WBC (0-5) HPF 0-2 Ur Epithelial Cells (Negative) HPF Rare Urine Crystals (Negative) HPF Negative Urine Bacteria (Negative) HPF Many Urine Casts (Negative) LPF Urine Mucus (Negative) Moderate Ur Culture Indicated? No Urine Glucose (Negative) mg/dL Negative Quality:SDOH Health Related Social Needs: Health related social needs risk of homeless PFSH All Active Problems (Updated 01/04/25 @ 14:41 by Paul Alves) DVT prophylaxis (Acute) Hematuria (Acute) Abdominal pain, RLQ (Acute) Postoperative abdominal pain (Acute) Post-operative pain (Acute) Chronic cholecystitis (Acute) Cigarette smoker (Chronic) Annual LDCT Cervicalgia (Chronic) Hallux rigidus of right foot (Chronic) Chronic low back pain (Chronic) Atopic dermatitis (Chronic) Medical History (Updated 01/04/25 @ 14:41 by Paul Alves) Abnormal uterine bleeding heavy menses, on progesterone therapy ~3192-3757 GERD (gastroesophageal reflux disease) Hyperlipidemia Essential hypertension Surgical History History of laparoscopic cholecystectomy (~12/2024) History of esophagogastroduodenoscopy (EGD) (04/30/20) History of colonoscopy (04/30/20) History of bilateral tubal ligation (~1991) Family History Mother Hyperlipidemia Alcohol abuse Depression Hypertension Father , was 76 lung problems with sepsis, pneumonia 05/06/24 Heart disease Hyperlipidemia Stroke Alcohol abuse Myocardial infarction x 4 Hypertension Type 2 diabetes mellitus COPD (chronic obstructive pulmonary disease) Sister Alcohol abuse Substance abuse Hypertension Sister Alcohol abuse Hypertension Brother Substance abuse Daughter Anxiety Daughter Depression Paternal Grandfather No problems noted. Paternal Grandmother Hyperlipidemia Hypertension Heart disease Maternal Grandfather Alcohol abuse Maternal Grandmother , In her 50s of [place] Hypertension Hyperlipidemia Type 2 diabetes mellitus Heart disease Stroke Myocardial infarction Social History Smoking/Tobacco Use Status: Current every day Tobacco Type: cigarettes Tobacco: How many years used: 30 Quit status: considering quitting Second Hand Exposure: Yes Smoking risk assessment performed?: Yes Alcohol Intake: current Alcohol Intake frequency: holidays/special occasions only Alcohol type: beer and other Drug use: Never Substance use type: does not use Adopted: No Caregiver/Support person: No Foster care: No Household members: spouse Housing: house Number of Children: 2 number of grandchildren: 4 Communication Needs: Corrective Lenses Education Level: high school Do you need help understanding health information?: Rarely 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 Pets and animals: No Sexually active: Yes Do you think of yourself as: straight/heterosexual Current gender identity: female Other: self employed What is your relationship status?: How often do you talk on the phone with friends or family?: three or more times per week How often do you get together with friends or relatives?: once per week How often do you attend samaritan or sikhism services?: decline to answer Do you belong to any clubs or organized social groups?: no Panel score (0-1 are the most socially isolated patients): 2 What type of physical activity do you participate in: none Estela/Hoahaoism: None Special estela needs: No Agree to transfusion: Yes Seatbelt use: always Helmet use: Yes Drive intox or ride w/intox transit bus driver: No Working smoke detector in home: Yes Carbon monox detector in home: Yes Firearms in home: Yes Firearms unloaded and locked: Yes Do you feel safe at home: Yes Do you feel safe in your relationship?: Yes Female Reproductive History Menstrual control method: permanent sterilization (BTL) Menopause type: natural Date of menopause: 06/11/20 History History 2 Para 2 Hx # Term Pregnancies Multiple births Hx # Pregnancies Ectopic pregnancies AB induced Hx Number of Living Children 2 AB spontaneous
[2025-01-04] MEDS: MORPHine 10 MG/ML VIAL 2 MG IVP ×2 (08:27→10:33)
[2025-01-04] MEDS: Normal Saline 1,000 ML 500 ML IV (08:28)
--- NOTE | 2025-01-04 08:30 | DI.CT_ITS ---
Exam(s) CT ABDOMEN PELVIS WO EXAM: CT ABDOMEN PELVIS WO CLINICAL HISTORY: Post-operative pain, s/p cholecystectomy. TECHNIQUE: Imaging Protocol: Axial computed tomography images with coronal and sagittal reformatted images were created and reviewed. Oral: / no COMPARISON: CT CT ABDOMEN PELVIS W from 01/03/2025 FINDINGS: Lung Bases: No acute findings. Honeycombing again noted at the lung bases. Liver: Normal density. No suspicious mass. Gallbladder and biliary tract: Status post cholecystectomy. No residual fluid in the gallbladder fossa. No biliary dilation. Pancreas: Normal density. No abnormal calcifications or inflammatory process. Spleen: Normal. Kidneys: Normal size, contour and axis. Tiny nonobstructing stone at the lower pole of the left kidney.. No obstructive uropathy. No suspicious masses seen. Adrenal glands: No masses seen. Lymph nodes: Within normal limits. Vasculature: Abdominal aorta non-dilated. Soft tissues: Unremarkable. Bladder: No wall thickening. No mass or calculi. Bowel: No obstruction or bowel wall thickening. Normal quantity of stool. Peritoneal cavity: Stable quantity of fluid in the low pelvis which has a high density appearance suggesting hemorrhage. No focal collection. No mesenteric inflammatory response. Reproductive organs: Unremarkable. Bones: Unremarkable for age. IMPRESSION: Status post cholecystectomy. No residual fluid in the gallbladder fossa stable quantity pelvic fluid/hemorrhage. The preliminary [facility] report was reviewed. RADIATION DOSE DELIVERED: Total DLP DATA REPOSITORY: All CT scans at this facility are submitted to the National Radiology Data Registry (NRDR) Dose Index Registry (DIR) with the [employer] (ACR). RADIATION OPTIMIZATION: All CT scans at this facility use at least one of these dose optimization techniques: automated exposure control; mA and/or kV adjustment per patient size (includes targeted exams where dose is matched to clinical indication); or iterative reconstruction.
[2025-01-04 08:38] LABS: Abs Immature Grans 0.04 10^3/uL (0.0-0.06); HCT 44.3 % (36.0-46.0); HGB 15.0 g/dL (11.2-15.7); Immature Grans % 0.3 %; MCH 31.8 pg (27.0-33.0); MCHC 33.9 % (32.0-36.0); MCV 94 fL (80-95); MPV 10.5 fL (8.0-11.0); Platelet Count 233 10^3/uL (130-400); RBC 4.72 10^6/uL (3.93-5.22); RDW 11.9 % (11.7-14.6); RDW-SD 41.2 fL; WBC 12.29 10^3/uL (4.4-10.8)
[2025-01-04 08:50] LABS: Lipase 31 U/L (<78)
[2025-01-04 08:55] LABS: ALT 27 U/L (14-59); AST 17 U/L (15-37); Albumin 4.1 g/dL (3.4-5.0); Alkaline Phosphatase 76 U/L (46-116); Anion Gap 11.6 mmol/L (3-11); BUN 9 mg/dL (7-18); Bilirubin, Total 0.9 mg/dL (0.2-1.0); CO2 25.4 mmol/L (21.0-32.0); Calcium 9.1 mg/dL (8.5-10.1); Chloride 105 mmol/L (98-107); Estimated GFR 106.60 (mL/min/1.73m2); Glucose 121 mg/dL (74-106); Potassium 3.4 mmol/L (3.5-5.1); Sodium 142 mmol/L (136-145); Total Protein 7.2 g/dL (6.4-8.2)
[2025-01-04 08:57] LABS: INR 1.1 (0.9-1.1); PTT Activated 21.9 sec (20.6-30.2); Prothrombin Time 11.1 sec (9.1-11.1)
[2025-01-04] MEDS: Lidocaine 5% Patch 1 PATCH TP (09:06)
--- NOTE | 2025-01-04 09:44 | DI.[facility]_ITS ---
PROCEDURE INFORMATION: Exam: CT Abdomen And Pelvis Without Contrast Exam date and time: 01/04/2025 8:46 AM Age: 54 years old Clinical indication: Other: Post op pain S/P cholecystectomy; Prior surgery; Surgery date: 3-7 days post-operative TECHNIQUE: Imaging protocol: Computed tomography of the abdomen and pelvis without contrast. Radiation optimization: All CT scans at this facility use at least one of these dose optimization techniques: automated exposure control; mA and/or kV adjustment per patient size (includes targeted exams where dose is matched to clinical indication); or iterative reconstruction. COMPARISON: CT ABDOMEN PELVIS W 01/03/2025 5:21 AM FINDINGS: Lungs: Honeycomb appearance of the right lower lobe. Chronic lung changes in the periphery of the lung [place] Liver: Normal. No mass. Gallbladder and biliary ducts: Cholecystectomy . No fluid in the gallbladder fossa Pancreas: Normal. No ductal dilation. Spleen: Normal. No splenomegaly. Adrenal glands: Normal. No mass. Kidneys and ureters: Punctate nonobstructing left renal calculus. No ureteral calculus. Stomach and bowel: Unremarkable. No obstruction. No mucosal thickening. Appendix: No evidence of appendicitis. Intraperitoneal space: Moderate ascites in the pelvis Vasculature: Unremarkable. No abdominal aortic aneurysm. Lymph nodes: Unremarkable. No enlarged lymph nodes. Urinary bladder: Unremarkable as visualized. Reproductive: Unremarkable as visualized. Bones/joints: Unremarkable. No acute fracture. Soft tissues: Umbilical hernia contains fat IMPRESSION: Cholecystectomy. No fluid in the gallbladder fossa Punctate nonobstructing left renal calculus. No ureteral calculus. Moderate ascites in the pelvis Dictated and Authenticated by: Ania Diaz MD. Orderin Orlando Guzman MD
--- NOTE | 2025-01-04 09:57 | W.PM.HP.N ---
Date of service: 01/04/25 Time of Service: 09:57 Assessment and Plan Assessment and plan (1) Post-operative pain: Status: Acute Assessment and plan: The source of her pain is quite puzzling to me. The discomfort that she appears to have during the course of the history and physical does have quite a bit of waxing and waning character to it, and is reminiscent of ureteral colic. And certainly the urinalysis from yesterday would suggest kidney stone or bladder stone as a source of the pain. However the CT scan is really quite unremarkable with regards to nephrolithiasis. There is certainly fluid in the pelvis that is clearly demonstrated on yesterday's CT scan. It is very interesting that the right upper quadrant is really quite normal however. In that regards, I think bile leak or surgical bleeding is less likely. Furthermore, the hemoglobin is higher than her previous testing, and stable through yesterday and today. I suppose it is possible she blood from 1 of this port sites that then ran down into the pelvis, and although there is just a little bit of stranding around the right flank port site, it really does not seem consistent with significant bleeding. In that regards, it is really difficult to decipher the source of the pelvic fluid. She did have some adhesions around the gallbladder, but the dissection really was not anything out of the ordinary that would raise alarm for significant risk of bleeding or bile leak. Clearly, she is not able to maintain adequate control of the pain at home. And I think admission in an effort to better control this, is very reasonable. We can try intravenous Tylenol and ketorolac to see if that makes any difference. Will also give the opportunity to repeat the labs and follow the physical exam over the next 24 hours. History of Present Illness History of Present Illness Chief Complaint: Right lower quadrant and flank pain Narrative: Tasha is 54 years old. She underwent elective laparoscopic cholecystectomy 4 days ago for chronic cholecystitis with gallbladder septation. Nature of the operation seemed uncomplicated, she was discharged home after recovery and same-day surgery. She tells me she felt well when she got home. She was up and about on Monday, and had a little bit of soreness over some of the incision sites, but nothing that sounds out of the ordinary. She was eating and drinking, and overall felt well. She did feel a little bit bloated, but she has had longstanding GI complaints, and this did not seem worrisome to her. She also felt a little bit constipated. She tried some MiraLAX without any success. On , she used a suppository, and had a long formed bowel movement. Later afternoon, or perhaps into the evening time she noticed worsening of the pain, and points to an area almost at the right inguinal canal. She described it as sharp, and she also noticed some dysuria associated with this. She developed nausea and vomiting after that, and had difficulty sleeping through night. She came to the emergency department early Monday morning. She had a mild leukocytosis, very small anion gap, and a urinalysis with proteinuria and red blood cells. She underwent a CAT scan of the abdomen and pelvis with contrast. Significant findings included suggestion of colitis in the ascending colon, small amount of fluid in the right paracolic gutter, and some dense fluid in the pelvis. There is no free air. She felt a little bit better after the emergency department visit, and was discharged home. She did okay through Monday, but never felt great. She was awoken from sleep around 4:00 this morning with the need to urinate. She tells me initially she felt pretty well, but as soon as she started peeing she felt dysuria, with increased pain through the right lower quadrant again. She came back to the emergency department for that. While here, she describes the pain as waxing and waning. Tends to come on, and arise from about a level 5 or 6 up to a 10 and just a few seconds. This lasts for several minutes, then slowly improves. Repeat blood work today is really all about the same as yesterday. She underwent a noncontrast CT of the abdomen and pelvis that showed a punctate left sided kidney stone, with no other pathology on the right side. Otherwise, with the exception of the lack of contrast for the study, everything else looks about the same. Review of Systems Constitutional Constitutional: Reports fatigue, Denies fever(s) and Reports poor appetite Eyes Eyes: Reports system reviewed and no additional complaints, except as documented ENT Ears, Nose, Mouth, and Throat: Reports system reviewed and no additional complaints, except as documented Cardiovascular Cardiovascular: Denies chest pain and Denies dyspnea Respiratory Respiratory: Denies chest congestion, Denies cough and Denies dyspnea Gastrointestinal Gastrointestinal: Reports bloating and Reports nausea Genitourinary Genitourinary: Reports hematuria (Dark orange urine) and Denies difficulty voiding Musculoskeletal Musculoskeletal: Reports back pain Neurologic Neurologic: Reports system reviewed and no additional complaints, except as documented Endocrine Endocrine: Reports fatigue Hematologic/Lymphatic Hematologic/Lymphatic: Denies easy bleeding and Denies easy bruising PFSH All Active Problems (Updated 01/04/25 @ 09:58 by Megan Perry NP) Postoperative abdominal pain (Acute) Post-operative pain (Acute) Chronic cholecystitis (Acute) Abnormal uterine bleeding (Acute) Cigarette smoker (Chronic) Annual LDCT Cervicalgia (Chronic) Hallux rigidus of right foot (Chronic) Chronic low back pain (Chronic) Atopic dermatitis (Chronic) Medical History (Updated 01/04/25 @ 09:58 by Megan Perry NP) GERD (gastroesophageal reflux disease) Hyperlipidemia Essential hypertension Surgical History (Updated 01/01/25 @ 07:34 by Nicky Stanford) History of laparoscopic cholecystectomy (~12/2024) History of esophagogastroduodenoscopy (EGD) (04/30/20) History of colonoscopy (04/30/20) History of bilateral tubal ligation (~1991) Family History (Updated 05/14/24 @ 09:45 by Ericka Jefferson) Mother Hyperlipidemia Alcohol abuse Depression Hypertension Father , was 76 lung problems with sepsis, pneumonia 05/06/24 Heart disease Hyperlipidemia Stroke Alcohol abuse Myocardial infarction x 4 Hypertension Type 2 diabetes mellitus COPD (chronic obstructive pulmonary disease) Sister Alcohol abuse Substance abuse Hypertension Sister Alcohol abuse Hypertension Brother Substance abuse Daughter Anxiety Daughter Depression Paternal Grandfather No problems noted. Paternal Grandmother Hyperlipidemia Hypertension Heart disease Maternal Grandfather Alcohol abuse Maternal Grandmother , In her 50s of [place] Hypertension Hyperlipidemia Type 2 diabetes mellitus Heart disease Stroke Myocardial infarction Social History Smoking/Tobacco Use Status: Current every day Tobacco Type: cigarettes Tobacco: How many years used: 30 Quit status: considering quitting Second Hand Exposure: Yes Smoking risk assessment performed?: Yes Alcohol Intake: current Alcohol Intake frequency: holidays/special occasions only Alcohol type: beer and other Drug use: Never Substance use type: does not use Adopted: No Caregiver/Support person: No Foster care: No Household members: spouse Housing: house Number of Children: 2 number of grandchildren: 4 Communication Needs: Corrective Lenses Education Level: high school Do you need help understanding health information?: Rarely 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 Pets and animals: No Sexually active: Yes Do you think of yourself as: straight/heterosexual Current gender identity: female Other: self employed What is your relationship status?: How often do you talk on the phone with friends or family?: three or more times per week How often do you get together with friends or relatives?: once per week How often do you attend mormon or zoroastrianism services?: decline to answer Do you belong to any clubs or organized social groups?: no Panel score (0-1 are the most socially isolated patients): 2 What type of physical activity do you participate in: none Estela/Jewish: None Special estela needs: No Agree to transfusion: Yes Seatbelt use: always Helmet use: Yes Drive intox or ride w/intox 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: No Working smoke detector in home: Yes Carbon monox detector in home: Yes Firearms in home: Yes Firearms unloaded and locked: Yes Do you feel safe at home: Yes Do you feel safe in your relationship?: Yes Female Reproductive History Menstrual control method: permanent sterilization (BTL) Menopause type: natural Date of menopause: 06/11/20 History History 2 Para 2 Hx # Term Pregnancies Multiple births Hx # Pregnancies Ectopic pregnancies AB induced Hx Number of Living Children 2 AB spontaneous Meds Allergies and Home Medications Allergies Allergy/AdvReac Type Severity Reaction Status Date / Time bupropion (From Wellbutrin) AdvReac bad dreams Verified 01/03/25 05:06 Home Medications ?Medication ?Instructions ?Recorded ?Confirmed ?Type triamcinolone acetonide 0.1 % 1 applic topical BID PRN eczema 09/02/19 01/03/25 Rx topical cream #80 grams omeprazole 20 mg capsule,delayed 20 mg PO DAILY 05/13/24 01/03/25 History release varenicline tartrate 0.5 mg (11)-1 See Rx Instructions PO DIRECTED 05/13/24 01/03/25 Rx mg (42) tablets in a dose pack #53 dose pk (Chantix Starting Month Box) varenicline tartrate 1 mg tablet 1 mg PO BID #168 tabs 05/13/24 12/27/24 Rx (Chantix Continuing Month Box) atenolol 25 mg tablet 25 mg PO DAILY #90 tabs 06/10/24 01/03/25 Rx rosuvastatin 10 mg tablet 10 mg PO DAILY #90 tabs 06/10/24 01/03/25 Rx ondansetron 4 mg disintegrating 4 mg PO Q8H PRN #10 tabs 11/18/24 01/03/25 Rx tablet tramadol 50 mg tablet 50 mg PO Q8H PRN #9 tabs 12/31/24 01/03/25 Rx Exam Const General: cooperative Nutritional Appearance: average body habitus Orientation: alert, awake and oriented x3 Other: Intermittent discomfort throughout the course of the history and physical. HENMT Head: normal to inspection Eyes General: appearance normal, both eyes and all related structures Resp Effort & Inspection: normal respiratory effort and able to speak in complete sentences Auscultation: clear to auscultation bilaterally Cardio Rate: regular rate Rhythm: regular rhythm Heart Sounds: S1 normal and S2 normal GI Inspection: normal to inspection and non-distended Palpation: soft, guarding (Right lower quadrant) and tender (Right lower quadrant suprapubic) Percussion: normal to percussion Auscultation: normal bowel sounds Results Labs 01/04/25 08:00 01/04/25 08:00 Labs: Laboratory Results - last 24 hr 01/04/25 01/04/25 08:00 08:35 WBC 12.29 H RBC 4.72 Hgb 15.0 Hct 44.3 MCV 94 MCH 31.8 MCHC 33.9 RDW 11.9 Plt Count 233 MPV 10.5 Immature Gran % 0.3 Neutrophils % 64.5 Lymphocytes % 29.4 Monocytes % 4.1 Eosinophils % 1.1 Basophils % 0.6 Nucleated RBC % 0.0 Absolute Neutrophils 7.93 H Absolute Lymphocytes 3.61 H Absolute Monocytes 0.50 Absolute Eosinophils 0.14 Absolute Basophils 0.07 PT 11.1 INR 1.1 APTT 21.9 VBG Lactate 1.5 Sodium 142 Potassium 3.4 L Chloride 105 Carbon Dioxide 25.4 Anion Gap 11.6 H BUN 9 Creatinine 0.6 Est GFR (CKD-EPI 2020) 106.60 Glucose 121 H Calcium 9.1 Total Bilirubin 0.9 AST 17 ALT 27 Alkaline Phosphatase 76 Total Protein 7.2 Albumin 4.1 Lipase 31 Last Vital Signs Temp 98.0 F 01/04/25 07:42 Pulse 58 L 01/04/25 07:42 Resp 20 01/04/25 07:42 BP 200/97 H 01/04/25 07:42 Pulse Ox 98 01/04/25 07:42 Time Spent Time spent with Patient: >75 minutes Time was spent: preparing to see the patient(eg.review tests), obtaining and/or reviewing separately otained hiistory, ordering medications,tests, procedures, referring, communicating with other health laboratory animal care veterinarian, indepentently interpreting results, counseling the patient and care coordination
[2025-01-04 10:12] LABS: Glucose Negative (Negative)
[2025-01-04 10:18] LABS: RBC 20-50 HPF (0-2); WBC 0-2 HPF (0-5)
[2025-01-04 10:19] LABS: C & S Indicated? No
--- NOTE | 2025-01-04 11:07 | W.PC.ACHO ---
Registration Status: ADM MADHURI Primary Language: Preferred Language: Lao ED Information & Data Chief Complaint FlankPain 01/04/25 10:06 Chief Complaint FlankPain 01/04/25 08:12 Triage Note right flank pain since 01/04/25 07:42 with N/V, was seen here yesterday does not understand D/C instructions has increased pain since yesterday took x1 prescribe pain med Medical / Surgical History (Last Reviewed 12/31/24 @ 06:44 by Saige Vance) GERD (gastroesophageal reflux disease) Hyperlipidemia Essential hypertension (Last Updated 01/01/25 @ 07:34 by Nicky Stanford) History of laparoscopic cholecystectomy (~12/2024) History of esophagogastroduodenoscopy (EGD) (04/30/20) History of colonoscopy (04/30/20) History of bilateral tubal ligation (~1991) Most Recent Vital Signs Temperature 36.8 C 01/04/25 10:45 Temperature Source Temporal Artery Scan 01/04/25 10:45 Pulse 72 01/04/25 10:45 Respiratory Rate 16 01/04/25 10:45 Respiratory Effort Normal 01/04/25 10:54 Respiratory Depth Normal 01/04/25 10:54 Respiratory Pattern Normal 01/04/25 10:54 Blood Pressure 189/93 H 01/04/25 10:45 Blood Pressure Mean 125 01/04/25 10:45 Pulse Oximetry 95 01/04/25 10:45 Oxygen Delivery Method Room Air 01/04/25 10:54 Oxygen Flow Rate 0 01/04/25 10:54 Pain Level 9 01/04/25 10:54 Allergies bupropion (From Wellbutrin) Adverse Reaction (Verified 01/03/25 05:06) bad dreams nightmares Precautions Isolation Standard precaution 01/04/25 10:06 Active Medications Generic Name Dose Route Start Last Admin Trade Name Freq PRN Reason Stop Dose Admin Morphine Sulfate 2 mg 01/04/25 08:09 01/04/25 10:33 Morphine 10 Mg/Ml Vial IVP 2 mg PRN PRN Administration IV IV Catheter Type [Right Saline Lock Antecubital] IV Catheter Gauge [Right 20 Antecubital] Diagnostics 01/04/25 01/04/25 01/04/25 Range/Units 08:35 08:15 08:00 WBC 12.29 H (4.4-10.8) 10^3/uL RBC 4.72 (3.93-5.22) 10^6/uL Hgb 15.0 (11.2-15.7) g/dL Hct 44.3 (36.0-46.0) % MCV 94 (80-95) fL MCH 31.8 (27.0-33.0) pg MCHC 33.9 (32.0-36.0) % RDW 11.9 (11.7-14.6) % Plt Count 233 (130-400) 10^3/uL MPV 10.5 (8.0-11.0) fL Immature Gran % 0.3 % Neutrophils % 64.5 % Lymphocytes % 29.4 % Monocytes % 4.1 % Eosinophils % 1.1 % Basophils % 0.6 % Nucleated RBC % 0.0 (0.0-0.3) % Absolute Neutrophils 7.93 H (1.2-6.7) 10^3/uL Absolute Lymphocytes 3.61 H (1.2-3.4) 10^3/uL Absolute Monocytes 0.50 (0.1-0.8) 10^3/uL Absolute Eosinophils 0.14 (0.0-0.7) 10^3/uL Absolute Basophils 0.07 (0.0-0.2) 10^3/uL PT 11.1 (9.1-11.1) sec INR 1.1 (0.9-1.1) APTT 21.9 (20.6-30.2) sec VBG Lactate 1.5 (<or=2.0) mmol/L Sodium 142 (136-145) mmol/L Potassium 3.4 L (3.5-5.1) mmol/L Chloride 105 (98-107) mmol/L Carbon Dioxide 25.4 (21.0-32.0) mmol/L Anion Gap 11.6 H (3-11) mmol/L BUN 9 (7-18) mg/dL Creatinine 0.6 (0.55-1.02) mg/dL Est GFR (CKD-EPI 2020) 106.60 (mL/min/1.73m2) Glucose 121 H (74-106) mg/dL Calcium 9.1 (8.5-10.1) mg/dL Total Bilirubin 0.9 (0.2-1.0) mg/dL AST 17 (15-37) U/L ALT 27 (14-59) U/L Alkaline Phosphatase 76 (46-116) U/L Total Protein 7.2 (6.4-8.2) g/dL Albumin 4.1 (3.4-5.0) g/dL Lipase 31 (<78) U/L Urine Color Yellow (Yellow) Urine Clarity Clear (Clear) Urine pH 5.5 (5-8) Ur Specific [place] >= 1.030 H (1.005-1.025) Urine Protein >=300 H (Neg-Trace) mg/dL Urine Ketones 15 H (Negative) mg/dL Urine Blood Large H (Negative) Urine Nitrite Negative (Negative) Urine Bilirubin Small H (Negative) Urine Urobilinogen 0.2 (Up to 0.2) mg/dL Ur Leukocyte Esterase Negative (Negative) Urine RBC 20-50 H (0-2) HPF Urine WBC 0-2 (0-5) HPF Ur Epithelial Cells Rare (Negative) HPF Urine Crystals Negative (Negative) HPF Urine Bacteria Many (Negative) HPF Urine Casts (Negative) LPF Urine Mucus Moderate (Negative) Ur Culture Indicated? No Urine Glucose Negative (Negative) mg/dL Intake and Output - 24 Hour Total 01/04/25 07:29 thru 01/04/25 10:54 Intake Total 10 Balance 10 Weight 62 kg Intake: IV 10 Other: Urine Appearance Clear Falls Risk Assessment History of Falls No History 01/04/25 10:54 Contributing Factors No Factors 01/04/25 10:54 Ambulatory Aids Independent 01/04/25 10:54 Tubes/Lines None 01/04/25 10:54 Gait Evaluation No gait disturbance 01/04/25 10:54 Cognition No cognitive impairment 01/04/25 10:54 Fall Total Score 0 01/04/25 10:54 Level of Risk Standard/Low Risk 01/04/25 10:54 Problems (Last Reviewed 12/31/24 @ 06:44 by Saige Vance) Post-operative pain (Acute) v v v v v v v v v Sending and/or Receiving Nurses: Please use comment section below to note any information pertinent to the patient hand-off not included above. Information / Comments: This nurse received report from ED, patient oriented, f flank pain 02/19 at arrivsl, nauseous, arrived to med surg for furter evaluation and treatment. Report received from: ED Nurse RN
[2025-01-04] MEDS: Ondansetron 4 MG/2 ML VIAL IVP ×3 (11:21→20:59)
[2025-01-04] MEDS: Pantoprazole 40 MG VIAL IVP (11:21)
[2025-01-04] MEDS: Lactated Ringers 1,000 ML 75 ML IV (11:22)
[2025-01-04] MEDS: Normal Saline Flush 10 ML SYR IVP ×6 (11:23→19:53)
[2025-01-04] MEDS: HYDROmorphone 2 MG/ML SYR 1 MG IVP ×2 (11:33→15:11)
--- NOTE | 2025-01-04 13:27 | PDOC.CMIN ---
Date of service: 01/04/25 Time of Service: 13:27 Care Management Initial Assmt Initial Assessment Reason for Hospitalization: Post Operative Pain, Right lower quadrant and flank pain Functional Status/Living Situation Patient Presentation: Tasha was awake and sitting up in bed when CM met with her. She is pleasant and engages in conversation. Pt reports that she has never felt so much pain, noting that shes had 2 children. She had a laproscopic procedure 6 days ago, and reports this pain feels very sharp more similar to intense menstrual cramps. Tasha was stated on IV ABX and is planning to get a US tomorrow. Tasha shared concerns surrounding her nursing care overnight, which passed along to quality, but overall Tasha reports that she has received great care during her hospitalization. CM will continue to follow. Town of Residence: [place] Resides with: Spouse (Greg) Significant Other/Family: [facility] Instrumental Activities of Daily Living (ADLs): Independent Medications Medication Management: No Issues/Barriers identified Physical Functioning/Mobility Assistive Device: None Advance Directives Advance Directives: Do you have an Advance Directive: Y 03/01/19, 13:37 AD On File at [facility]: Y 03/01/19, 13:37 Date Asked 01/04/25 01/04/25, 10:22 AD Date Reviewed 12/26/24 12/31/24, 08:00 COLST On File at [facility] COLST Date Scanned Code Status Resuscitation Status Full Code Insurance Coverage/Financial Issues Insurance: [employer] [facility] - [id number] Care Team Visit Care Team Role Provider Type Coreen Stevenson NP Primary Care Provider NURSE PRACTITIONER Megan Perry NP Emergency Provider NURSE PRACTITIONER Rhett Dorantes MD Admit Provider [facility] STAFF PHYSICIAN Attending Provider Discharge Potential Discharge Needs: PCP F/U Appt and Surgical F/U Appt Anticipated Barriers to Discharge: None Identified Patient/Family Education Needs: Review discharge instructions, discuss Ask Me Three Transportation: Private vehicle Plan: US planned for Monday, not available over the weekend. Anticipate, Tasha will discharge home via private vehicle with family when medically ready to discharge. Pt will follow up with community providers and her discharge plan of care as directed. No new services are anticipated at this time. CM will follow. Social Determinants of Health Screening Social Determinants of health last assessed in clinic: 01/05/25 Will the Patient Participate in the Screening?: Yes Do you worry about having a steady place to live?: yes What is your living situation today?: I have housing today, but am worried about losing it Problems where you live: no known problems In the past 12 months, have you had to go without electric, gas, oil or water in your home?: no 1. Within the past 12 months, we worried whether our food would run out before we got money to buy more.: Never true 2. Within the past 12 months, the food we bought just didn't last and we didn't have money to get more.: Never true Has lack of transportation kept you from medical appointments or from doing things needed for daily living?: no Has anyone in your life made you feel unsafe or unsupported?: no How hard is it for you to pay for the very basics like food, housing, medical care, and heating? Would you say it is:: Not hard at all Do you want help finding or keeping work or a job?: I do not need or want help If for any reason you need help with day-to-day activities such as bathing, preparing meals, shopping, managing finances, etc., do you get the help you need?: I don?t need any help How often do you feel lonely or isolated from those around you?: Never Do you speak a language other than Cameroonian at home?: No Does the patient want assistance with any of the above?: No Health Related Social Needs Health related social needs: housing instability, housed, with risk of homelessness (Z59.811) PFSH All Active Problems (Updated 01/04/25 @ 14:41 by Paul Alves) DVT prophylaxis (Acute) Hematuria (Acute) Abdominal pain, RLQ (Acute) Postoperative abdominal pain (Acute) Post-operative pain (Acute) Chronic cholecystitis (Acute) Cigarette smoker (Chronic) Annual LDCT Cervicalgia (Chronic) Hallux rigidus of right foot (Chronic) Chronic low back pain (Chronic) Atopic dermatitis (Chronic) Medical History (Updated 01/04/25 @ 14:41 by Paul Alves) Abnormal uterine bleeding heavy menses, on progesterone therapy ~[id number] GERD (gastroesophageal reflux disease) Hyperlipidemia Essential hypertension Surgical History History of laparoscopic cholecystectomy (~12/2024) History of esophagogastroduodenoscopy (EGD) (04/30/20) History of colonoscopy (04/30/20) History of bilateral tubal ligation (~1991) Family History Mother Hyperlipidemia Alcohol abuse Depression Hypertension Father , was 76 lung problems with sepsis, pneumonia 05/06/24 Heart disease Hyperlipidemia Stroke Alcohol abuse Myocardial infarction x 4 Hypertension Type 2 diabetes mellitus COPD (chronic obstructive pulmonary disease) Sister Alcohol abuse Substance abuse Hypertension Sister Alcohol abuse Hypertension Brother Substance abuse Daughter Anxiety Daughter Depression Paternal Grandfather No problems noted. Paternal Grandmother Hyperlipidemia Hypertension Heart disease Maternal Grandfather Alcohol abuse Maternal Grandmother , In her 50s of [place] Hypertension Hyperlipidemia Type 2 diabetes mellitus Heart disease Stroke Myocardial infarction Social History Smoking/Tobacco Use Status: Current every day Tobacco Type: cigarettes Tobacco: How many years used: 30 Quit status: considering quitting Second Hand Exposure: Yes Smoking risk assessment performed?: Yes Alcohol Intake: current Alcohol Intake frequency: holidays/special occasions only Alcohol type: beer and other Drug use: Never Substance use type: does not use Adopted: No Caregiver/Support person: No Foster care: No Household members: spouse Housing: house Number of Children: 2 number of grandchildren: 4 Communication Needs: Corrective Lenses Education Level: high school Do you need help understanding health information?: Rarely 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 Pets and animals: No Sexually active: Yes Do you think of yourself as: straight/heterosexual Current gender identity: female Other: self employed What is your relationship status?: How often do you talk on the phone with friends or family?: three or more times per week How often do you get together with friends or relatives?: once per week How often do you attend pentecostalism or bahai services?: decline to answer Do you belong to any clubs or organized social groups?: no Panel score (0-1 are the most socially isolated patients): 2 What type of physical activity do you participate in: none Estela/Amish: None Special estela needs: No Agree to transfusion: Yes Seatbelt use: always Helmet use: Yes Drive intox or ride w/intox 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
[2025-01-04] MEDS: ACETAMINOPHEN 1,000 MG/100 ML BAG 400 MG IVPB ×2 (13:32→19:46)
--- NOTE | 2025-01-04 14:16 | W.MEDCONSULT ---
Date of service: 01/04/25 Time of Service: 14:16 Assessment and Plan Assessment and plan (1) Abdominal pain, RLQ: Status: Acute Assessment and plan: Severe RLQ pain starting 4 days after laproscopic cholecystectomy without clear etiology. Symptoms and urine results are most c/w renal stone, but two CTs negative, including non-contrast today, only stone is on left and is not obstructive. Possible colitis on right side on initial CT, but cause unclear, no signs of perforation of bowel complicating surgery. Exam and imaging less c/w appendicitis Timing suggests this is related to surgery. There is fluid in the pelvis, but not a clearly abnormal amount after surgery. Some bleeding into pelvis could be causing pain, but laterality less c/w this. Serial CTs do no suggest ongoing bleeding. Pelvic veins prominent on left side on 01/03 CT, which can be seen with pelvic congestive syndrome, but her symptoms are on the right She does still have her ovaries and uterus, but no pathology evident on multiple CT scans. Even so, should have pelvic exam and u/s if not improving. She was dehydrated at admission, give additional LR. Still in significant pain, give additional hydromorphone until we have it controlled. (2) Hematuria: Status: Acute Assessment and plan: blood and protein in the urine, which can suggest nephritis, but normal renal function. She had 5-10 RBCs since November. Significant proteinuria is new today. Will get protein/cr ratio to help clarify. With her risks, this should be followed as outpatient with work up including cystoscopy. (3) Cigarette smoker: Status: Chronic Assessment and plan: has been on varenicline for cessation, continue (4) DVT prophylaxis: Status: Acute Assessment and plan: enoxaparin per surgery (5) Essential hypertension: Assessment and plan: continue home atenolol (6) GERD (gastroesophageal reflux disease): Assessment and plan: continue home pantoprazole. History of Present Illness History of Present Illness Chief Complaint: RLQ pain Narrative: 54 yo F with history of smoking, HTN, and chronic cholecystistis who is POD #5 s/p uncomplicated laproscopic cholecystectomy who is presenting with severe RLQ to back pain. She was feeling well with minimal pain after her surgery, just some soreness in periumbilical incision. , 2 days prior to admission, she started feeling nauseous. Overnight, early Monday morning, she got up to urinate and she started feeling the aching RLQ pain. Feels like severe labor pains, worse than labor. In right lower abdomen deep and radiating to the low back. She came into the ED 01/[address] showed right colitis, u/a showed few RBCs. She felt a little better after toradol and was discharged. She went home but the pain and nausea started to get worse again after trying to eat sandwich for dinner, could only take 3 bites. Early this morning, she got up and had to move bowels. She had to push some and did have a BM but had severe pain during and since. Currently 9-10/10 pain. Only the second medication so far has helped some (hydromorphone 1mg) and this brought it down to 8/10. She has never had this pain before. She has no known h/o kidney stones. She has not seen blood in her urine. Pain is worse with urination. No bloody or black stools. No vaginal discharge or bleeding. She was admitted by Dr. Dorantes who requested medical consult given unclear diagnosis and possible renal involvement. Of note, h/o abnormal uterine bleeding was heavy periods prior to menopause, was on progesterone therapy for ~years ending in 2019, no recent bleeding. Normal EMB 03/20, normal pelvic u/s in 2013. Normal paps last 04/2022. Her last colonoscopy was benign in 2019. Review of Systems All systems reviewed & are unremarkable except as noted in HPI and below PFSH All Active Problems DVT prophylaxis (Acute) Hematuria (Acute) Abdominal pain, RLQ (Acute) Postoperative abdominal pain (Acute) Post-operative pain (Acute) Chronic cholecystitis (Acute) Chronic low back pain (Chronic) Cervicalgia (Chronic) Hallux rigidus of right foot (Chronic) Atopic dermatitis (Chronic) Cigarette smoker (Chronic) Annual LDCT Medical History (Updated 01/04/25 @ 14:41 by Paul Alves) Abnormal uterine bleeding heavy menses, on progesterone therapy ~[id number] GERD (gastroesophageal reflux disease) Hyperlipidemia Essential hypertension Surgical History History of laparoscopic cholecystectomy (~12/2024) History of esophagogastroduodenoscopy (EGD) (04/30/20) History of colonoscopy (04/30/20) History of bilateral tubal ligation (~1991) Family History Mother Hyperlipidemia Alcohol abuse Depression Hypertension Father , was 76 lung problems with sepsis, pneumonia 05/06/24 Heart disease Hyperlipidemia Stroke Alcohol abuse Myocardial infarction x 4 Hypertension Type 2 diabetes mellitus COPD (chronic obstructive pulmonary disease) Sister Alcohol abuse Substance abuse Hypertension Sister Alcohol abuse Hypertension Brother Substance abuse Daughter Anxiety Daughter Depression Paternal Grandfather No problems noted. Paternal Grandmother Hyperlipidemia Hypertension Heart disease Maternal Grandfather Alcohol abuse Maternal Grandmother , In her 50s of [place] Hypertension Hyperlipidemia Type 2 diabetes mellitus Heart disease Stroke Myocardial infarction Social History Smoking/Tobacco Use Status: Current every day Tobacco Type: cigarettes Tobacco: How many years used: 30 Quit status: considering quitting Second Hand Exposure: Yes Smoking risk assessment performed?: Yes Alcohol Intake: current Alcohol Intake frequency: holidays/special occasions only Alcohol type: beer and other Drug use: Never Substance use type: does not use Adopted: No Caregiver/Support person: No Foster care: No Household members: spouse Housing: house Number of Children: 2 number of grandchildren: 4 Communication Needs: Corrective Lenses Education Level: high school Do you need help understanding health information?: Rarely current occupation: [employer] Pets and animals: No Sexually active: Yes Do you think of yourself as: straight/heterosexual Current gender identity: female Other: self employed What is your relationship status?: How often do you talk on the phone with friends or family?: three or more times per week How often do you get together with friends or relatives?: once per week How often do you attend episcopal or judaism services?: decline to answer Do you belong to any clubs or organized social groups?: no Panel score (0-1 are the most socially isolated patients): 2 What type of physical activity do you participate in: none Estela/Hinduism: None Special estela needs: No Agree to transfusion: Yes Seatbelt use: always Helmet use: Yes Drive intox or ride w/intox courier delivery driver: No Working smoke detector in home: Yes Carbon monox detector in home: Yes Firearms in home: Yes Firearms unloaded and locked: Yes Do you feel safe at home: Yes Do you feel safe in your relationship?: Yes Female Reproductive History Menstrual control method: permanent sterilization (BTL) Menopause type: natural Date of menopause: 06/11/20 History History 2 Para 2 Hx # Term Pregnancies Multiple births Hx # Pregnancies Ectopic pregnancies AB induced Hx Number of Living Children 2 AB spontaneous Exam Narrative Exam Narrative: GEN: Alert and oriented x 4, writhing in bed with pain, changing positions. Cooperative but clearly uncomfortable. Non-toxic appearing. Gives linear history. HEENT: Head atraumatic. Conjunctiva clear, no icterus. PEERL, EOMI. no rhinorrhea. MMM, OP benign. Neck is supple with no masses or lymphadenopathy, trachea midline LUNGS: CTAB with normal effort CV: RRR with no murmurs, gallops, or rubs. ABD: active bowel sounds, soft, nontender and nondistended. No masses. EXT: no cyanosis, clubbing, or edema MSK: No joint redness or swelling NEURO: CN 2-12 grossly intact. Normal movement of 4 extremities. Normal speech and coordination. No tremor SKIN: No rashes or open wounds. PSYCH: normal mood and affect Results Last Vital Signs Temp 36.8 C 01/04/25 10:45 Pulse 72 01/04/25 10:45 Resp 16 01/04/25 10:45 BP 189/93 H 01/04/25 10:45 Pulse Ox 95 01/04/25 10:45 Labs 01/04/25 08:00 01/04/25 08:00 Labs: Laboratory Results - last 24 hr 01/04/25 01/04/25 01/04/25 08:00 08:15 08:35 WBC 12.29 H RBC 4.72 Hgb 15.0 Hct 44.3 MCV 94 MCH 31.8 MCHC 33.9 RDW 11.9 Plt Count 233 MPV 10.5 Immature Gran % 0.3 Neutrophils % 64.5 Lymphocytes % 29.4 Monocytes % 4.1 Eosinophils % 1.1 Basophils % 0.6 Nucleated RBC % 0.0 Absolute Neutrophils 7.93 H Absolute Lymphocytes 3.61 H Absolute Monocytes 0.50 Absolute Eosinophils 0.14 Absolute Basophils 0.07 PT 11.1 INR 1.1 APTT 21.9 VBG Lactate 1.5 Sodium 142 Potassium 3.4 L Chloride 105 Carbon Dioxide 25.4 Anion Gap 11.6 H BUN 9 Creatinine 0.6 Est GFR (CKD-EPI 2020) 106.60 Glucose 121 H Calcium 9.1 Total Bilirubin 0.9 AST 17 ALT 27 Alkaline Phosphatase 76 Total Protein 7.2 Albumin 4.1 Lipase 31 Urine Color Yellow Urine Clarity Clear Urine pH 5.5 Ur Specific [place] >= 1.030 H Urine Protein >=300 H Urine Ketones 15 H Urine Blood Large H Urine Nitrite Negative Urine Bilirubin Small H Urine Urobilinogen 0.2 Ur Leukocyte Esterase Negative Urine RBC 20-50 H Urine WBC 0-2 Ur Epithelial Cells Rare Urine Crystals Negative Urine Bacteria Many Urine Casts Urine Mucus Moderate Ur Culture Indicated? No Urine Glucose Negative Imaging Imaging Studies: CT A/P w/o: Cholecystectomy. No fluid in the gallbladder fossa Punctate nonobstructing left renal calculus. No ureteral calculus. No stone on right. Moderate ascites in the pelvis. normal appendix CT A/P w/ 01/03/25: 1. Possible right maxine colitis 2. Cholecystectomy 3. Free fluid in the abdomen and pelvis no renal/ stones. Prominent periuterine vessels left, nl reproductive organs.
[2025-01-04] MEDS: Lactated Ringers 500 ML 1000 ML IV (14:52)
[2025-01-04] MEDS: HYDROmorphone 2 MG/ML SYR IVP ×2 (17:14→20:53)
[2025-01-04] MEDS: Varenicline 1 MG TAB PO (19:46)
[2025-01-05] MEDS: HYDROmorphone 2 MG/ML SYR IVP ×7 (01:47→23:04)
[2025-01-05] MEDS: Lactated Ringers 1,000 ML 75 ML IV ×2 (01:50→16:11)
[2025-01-05 06:30] LABS: Abs Immature Grans 0.05 10^3/uL (0.0-0.06); HCT 39.2 % (36.0-46.0); HGB 13.2 g/dL (11.2-15.7); Immature Grans % 0.4 %; MCH 32.3 pg (27.0-33.0); MCHC 33.7 % (32.0-36.0); MCV 96 fL (80-95); MPV 10.6 fL (8.0-11.0); Platelet Count 225 10^3/uL (130-400); RBC 4.09 10^6/uL (3.93-5.22); RDW 12.0 % (11.7-14.6); RDW-SD 42.5 fL; WBC 13.68 10^3/uL (4.4-10.8)
[2025-01-05 06:53] LABS: ALT 21 U/L (14-59); AST 15 U/L (15-37); Albumin 3.6 g/dL (3.4-5.0); Alkaline Phosphatase 67 U/L (46-116); Anion Gap 7.8 mmol/L (3-11); BUN 8 mg/dL (7-18); Bilirubin, Direct 0.2 mg/dL (0.0-0.2); Bilirubin, Total 0.7 mg/dL (0.2-1.0); CO2 31.2 mmol/L (21.0-32.0); Calcium 8.9 mg/dL (8.5-10.1); Chloride 104 mmol/L (98-107); Estimated GFR 111.39 (mL/min/1.73m2); Glucose 94 mg/dL (74-106); Potassium 3.8 mmol/L (3.5-5.1); Sodium 143 mmol/L (136-145); Total Protein 6.5 g/dL (6.4-8.2)
[2025-01-05 07:21] VITALS: BP 143/65; PULSE 81; RESP 16; TEMP 36.7; O2SAT 93
[2025-01-05] MEDS: Enoxaparin 40 MG/0.4 ML SYR SC (07:56)
[2025-01-05] MEDS: Atenolol 25 MG TAB PO (07:57)
[2025-01-05] MEDS: Pantoprazole 40 MG VIAL IVP (07:57)
[2025-01-05] MEDS: Normal Saline Flush 10 ML SYR IVP ×5 (07:57→21:04)
[2025-01-05] MEDS: ACETAMINOPHEN 1,000 MG/100 ML BAG 400 MG IVPB ×2 (07:57→16:22)
[2025-01-05] MEDS: Rosuvastatin 10 MG TAB PO (07:58)
[2025-01-05] MEDS: Ondansetron 4 MG/2 ML VIAL IVP ×2 (08:08→22:45)
--- NOTE | 2025-01-05 08:19 | PGE_ITS ---
Date of Service Date of service: 01/05/25 Time of Service: 08:19 Assessment and Plan Assessment and plan (1) Abdominal pain, RLQ: Status: Acute Assessment and plan: Her white blood cell count has increased today, up to 14 from 12 yesterday. Interestingly, she remains afebrile. The new nausea and vomiting is disappointing. At this point, I think abdominal abscess is the most likely diagnosis, but the source of that remains puzzling to me. The establishment of pneumoperitoneum during her laparoscopy was very straightforward, and is nearly impossible to imagine a scenario that would have caused an enterotomy or colotomy as a source of this. I guess it still possible that is just a simple hematoma, but I am not sure why that would cause such discomfort and a leukoc ytosis. For today, check blood cultures to rule out bacteremia as a source of the leukocytosis. After that, I will start some broad-spectrum antibiotics and see if that helps at all. I still do not see a compelling reason to chicas back to the operating room at this point. Again, there is no free air on any of the imaging that would suggest ongoing enteral source of the problem. In that regard, we will see if the antibiotics make any difference, and essentially treat this as perforated appendicitis or perforated diverticulitis. Will also plan for pelvic ultrasound tomorrow, and perhaps a HIDA scan to rule out bile leak definitively. Subjective Subjective Interval history since last seen: Already filled a little better last night, and was able to sleep soundly from about a p.m. till about 1 AM. She was optimistic that she was feeling better. Unfortunately, through the earlier morning hours, she has recrudescence of her pain, and now some nausea and vomiting. Similar to before, the pain tends to wax and wane, and in between episodes, she is relatively comfortable. Exam GI Other: Her abdomen remains soft, and not at all distended. Bowel sounds are little bit hypoactive, more prominent on the right side compared to the left side. She is tender to deeper palpation. Objective Last Vital Signs Temp 98.1 F 01/05/25 07:21 Pulse 81 01/05/25 07:21 Resp 16 01/05/25 07:21 BP 143/65 H 01/05/25 07:21 Pulse Ox 93 01/05/25 07:21 Laboratory Results - last 24 hr 01/04/25 01/04/25 01/04/25 08:00 08:15 08:35 WBC 12.29 H RBC 4.72 Hgb 15.0 Hct 44.3 MCV 94 MCH 31.8 MCHC 33.9 RDW 11.9 Plt Count 233 MPV 10.5 Immature Gran % 0.3 Neutrophils % 64.5 Lymphocytes % 29.4 Monocytes % 4.1 Eosinophils % 1.1 Basophils % 0.6 Nucleated RBC % 0.0 Absolute Neutrophils 7.93 H Absolute Lymphocytes 3.61 H Absolute Monocytes 0.50 Absolute Eosinophils 0.14 Absolute Basophils 0.07 PT 11.1 INR 1.1 APTT 21.9 VBG Lactate 1.5 Sodium 142 Potassium 3.4 L Chloride 105 Carbon Dioxide 25.4 Anion Gap 11.6 H BUN 9 Creatinine 0.6 Est GFR (CKD-EPI 2020) 106.60 Glucose 121 H Calcium 9.1 Total Bilirubin 0.9 Conjugated Bilirubin AST 17 ALT 27 Alkaline Phosphatase 76 Total Protein 7.2 Albumin 4.1 Lipase 31 Urine Color Yellow Urine Clarity Clear Urine pH 5.5 Ur Specific [place] >= 1.030 H Urine Protein >=300 H Urine Ketones 15 H Urine Blood Large H Urine Nitrite Negative Urine Bilirubin Small H Urine Urobilinogen 0.2 Ur Leukocyte Esterase Negative Urine RBC 20-50 H Urine WBC 0-2 Ur Epithelial Cells Rare Urine Crystals Negative Urine Bacteria Many Urine Casts Urine Mucus Moderate Ur Culture Indicated? No Urine Glucose Negative 01/05/25 05:55 WBC 13.68 H RBC 4.09 Hgb 13.2 Hct 39.2 MCV 96 H MCH 32.3 MCHC 33.7 RDW 12.0 Plt Count 225 MPV 10.6 Immature Gran % 0.4 Neutrophils % 65.6 Lymphocytes % 25.5 Monocytes % 6.9 Eosinophils % 1.2 Basophils % 0.4 Nucleated RBC % 0.0 Absolute Neutrophils 8.97 H Absolute Lymphocytes 3.49 H Absolute Monocytes 0.94 H Absolute Eosinophils 0.16 Absolute Basophils 0.05 PT INR APTT VBG Lactate Sodium 143 Potassium 3.8 Chloride 104 Carbon Dioxide 31.2 Anion Gap 7.8 BUN 8 Creatinine 0.5 L Est GFR (CKD-EPI 2020) 111.39 Glucose 94 Calcium 8.9 Total Bilirubin 0.7 Conjugated Bilirubin 0.2 AST 15 ALT 21 Alkaline Phosphatase 67 Total Protein 6.5 Albumin 3.6 Lipase Urine Color Urine Clarity Urine pH Ur Specific [place] Urine Protein Urine Ketones Urine Blood Urine Nitrite Urine Bilirubin Urine Urobilinogen Ur Leukocyte Esterase Urine RBC Urine WBC Ur Epithelial Cells Urine Crystals Urine Bacteria Urine Casts Urine Mucus Ur Culture Indicated? Urine Glucose Time Spent with Patient Time Spent with Patient: 35-49 minutes Time was spent: preparing to see the patient(eg.review tests), ordering medications,tests, procedures, indepentently interpreting results, counseling the patient and care coordination
[2025-01-05] MEDS: PIPERACILLIN/TAZO 3.375 GM in Normal Saline 50 ML IVPB ×3 (11:32→22:58)
--- NOTE | 2025-01-05 13:43 | PGE_ITS ---
Date of Service Date of service: 01/05/25 Time of Service: 13:44 Assessment and Plan Assessment and plan (1) Abdominal pain, RLQ: Status: Acute Assessment and plan: Severe RLQ pain starting 4 days after laproscopic cholecystectomy without clear etiology. Symptoms and urine results are most c/w renal stone, but two CTs negative, including non-contrast 01/04, only stone is on left and is not obstructive. Possible colitis on right side on 01/03 CT, but cause unclear, no signs of perforation of bowel complicating surgery. Exam and imaging less c/w appendicitis. Pelvic veins prominent on left side on 01/03 CT, which can be seen with pelvic congestive syndrome, but her symptoms are on the right She does still have her ovaries and uterus, but no pathology evident on multiple CT scans. Benign bimanual pelvic exam, just some tenderness posteriorly, but no masses on rectal 01/05. Timing suggests this is related to surgery. There is fluid in the pelvis, but not a clearly abnormal amount after surgery. Some bleeding into pelvis could be causing pain, but laterality less c/w this. Serial CTs do no suggest ongoing bleeding. WBC up 01/05, pip/tazo started by surgery due to concern for developing abscess. Continue to monitor, prn hydromorphone if pain severe. (2) Hematuria: Status: Acute Assessment and plan: blood and protein in the urine, which can suggest an intrinsic nephritis, but normal renal function, not other findings like RBC/WBC casts. She had 5-10 RBCs since November. Significant proteinuria new 01/04. Ordered protein/cr ratio to help clarify, not done yet. With her risks, this should be followed as outpatient with work up including cystoscopy. (3) Cigarette smoker: Status: Chronic Assessment and plan: had been given varenicline for cessation, never started, request parish SON here. (4) DVT prophylaxis: Status: Acute Assessment and plan: enoxaparin per surgery (5) Essential hypertension: Assessment and plan: continue home atenolol (6) GERD (gastroesophageal reflux disease): Assessment and plan: continue home pantoprazole. Subjective Subjective Patient reports: nausea; denies bowel movement, shortness of breath or fever Interval history since last seen: She had relief from pain for a couple hours overnight, but returned in the AM. Same pain, RLQ. Still loco to urinate. Ate little this morning, did not vomit this. Exam Narrative Exam Narrative: GEN: Alert and oriented, more comfortable appearing today sitting up in bed. LUNGS: CTAB with normal effort CV: RRR with no murmurs, gallops, or rubs. ABD: active bowel sounds, soft, nondistended, no masses, ,mildly tender to deep palpation RLQ. Pelvic: Nl external genitalia, no discharge. Nl uterus and ovaries, not severely tender in adnexa/palpation of ovaries. Tender posteriorly. On rectal, no masses or stool, exam, some general tenderness. EXT: no cyanosis, clubbing, or edema Objective Last Vital Signs Temp 36.7 C 01/05/25 07:21 Pulse 81 01/05/25 07:21 Resp 16 01/05/25 07:21 BP 143/65 H 01/05/25 07:21 Pulse Ox 93 01/05/25 07:21 Laboratory Results - last 24 hr 01/05/25 05:55 WBC 13.68 H RBC 4.09 Hgb 13.2 Hct 39.2 MCV 96 H MCH 32.3 MCHC 33.7 RDW 12.0 Plt Count 225 MPV 10.6 Immature Gran % 0.4 Neutrophils % 65.6 Lymphocytes % 25.5 Monocytes % 6.9 Eosinophils % 1.2 Basophils % 0.4 Nucleated RBC % 0.0 Absolute Neutrophils 8.97 H Absolute Lymphocytes 3.49 H Absolute Monocytes 0.94 H Absolute Eosinophils 0.16 Absolute Basophils 0.05 Sodium 143 Potassium 3.8 Chloride 104 Carbon Dioxide 31.2 Anion Gap 7.8 BUN 8 Creatinine 0.5 L Est GFR (CKD-EPI 2020) 111.39 Glucose 94 Calcium 8.9 Total Bilirubin 0.7 Conjugated Bilirubin 0.2 AST 15 ALT 21 Alkaline Phosphatase 67 Total Protein 6.5 Albumin 3.6 Time Spent with Patient Time Spent with Patient: 35-49 minutes Time was spent: preparing to see the patient(eg.review tests), obtaining and/or reviewing separately otained hiistory, ordering medications,tests, procedures, referring, communicating with other health child care center administrator, indepentently interpreting results, counseling the patient and care coordination
[2025-01-05] MEDS: Nicotine 21 MG/24 HR PATCH TD (17:55)
[2025-01-05 19:14] VITALS: BP 148/70; PULSE 65; RESP 18; TEMP 38.2; O2SAT 94
[2025-01-05] MEDS: Polyethylene Glycol 3350 17 GM PACKET PO (21:12)
[2025-01-05 23:12] VITALS: TEMP 36.6
[2025-01-06] VITALS (20 sets, daily range): BP systolic 120–151; BP diastolic 45–85; PULSE 71–106; RESP 16–25; TEMP 36.5–37.3; O2SAT 88–98; BMI 24.2
--- NOTE | 2025-01-06 | DI.NM_ITS ---
Exam(s) [place] HEPATOBILIARY SCAN GRP EXAM: [place] HEPATOBILIARY SCAN GRP CLINICAL HISTORY: rule out bile leak. TECHNIQUE: Injected dose: 5 mCi Tc-99 mebrofenin Initial dynamic images: 60 minutes Post-Gallbladder fillin.02 mcg/kg CCK intravenously over a 15min infusion. Addition images: 20 minute dynamic during CCK administration. COMPARISON: [facility] [place] HEPATOBILIARY CCK GRP from 05/06/[address] ABDOMEN PELVIS W from 01/03/[address] ABDOMEN PELVIS WO from 01/04/2025 FINDINGS: There is normal uptake and excretion of radiopharmaceutical by the liver. There is no obstruction of the common bowel duct and there is transit of radiopharmaceutical into the duodenal C-loop. There is no evidence of bile leak IMPRESSION: 1. No evidence of bile leak in this patient who had recent cholecystectomy. Reviewed at my with the ordering surgeon.
[2025-01-06] MEDS: HYDROmorphone 2 MG/ML SYR IVP ×3 (02:49→09:54)
[2025-01-06 03:56] LABS: PROTEIN 39.7 mg/dL; Prot/Crea Ur Ratio 0.75
[2025-01-06] MEDS: PIPERACILLIN/TAZO 3.375 GM in Normal Saline 50 ML IVPB ×3 (05:16→18:02)
[2025-01-06] MEDS: Lactated Ringers 1,000 ML 75 ML IV ×2 (05:22→18:05)
[2025-01-06 06:38] LABS: HCT 37.1 % (36.0-46.0); HGB 12.7 g/dL (11.2-15.7); MCH 32.6 pg (27.0-33.0); MCHC 34.2 % (32.0-36.0); MCV 95 fL (80-95); MPV 10.2 fL (8.0-11.0); Platelet Count 205 10^3/uL (130-400); RBC 3.89 10^6/uL (3.93-5.22); RDW 11.9 % (11.7-14.6); RDW-SD 41.3 fL; WBC 21.91 10^3/uL (4.4-10.8)
[2025-01-06 06:52] LABS: Anion Gap 9.9 mmol/L (3-11); BUN 7 mg/dL (7-18); CO2 29.1 mmol/L (21.0-32.0); Calcium 8.9 mg/dL (8.5-10.1); Chloride 101 mmol/L (98-107); Estimated GFR 111.39 (mL/min/1.73m2); Glucose 74 mg/dL (74-106); Potassium 3.4 mmol/L (3.5-5.1); Sodium 140 mmol/L (136-145)
[2025-01-06] MEDS: Normal Saline Flush 10 ML SYR IVP ×4 (08:30→21:39)
[2025-01-06] MEDS: Pantoprazole 40 MG VIAL IVP (10:14)
[2025-01-06] MEDS: Enoxaparin 40 MG/0.4 ML SYR SC (10:15)
[2025-01-06] MEDS: Atenolol 25 MG TAB PO (10:15)
[2025-01-06] MEDS: Rosuvastatin 10 MG TAB PO (10:15)
[2025-01-06] MEDS: Nicotine 14 MG/24 HR PATCH TD (13:32)
--- NOTE | 2025-01-06 13:58 | W.PM.PROGNOT ---
Date of Service Date of service: 01/06/25 Time of Service: 13:58 Assessment and Plan Assessment and plan (1) Postoperative abdominal pain: Status: Acute Assessment and plan: The HIDA scan today is negative for bile leak. With the increasing leukocytosis, and ongoing symptoms, I think we will exhausted nonoperative options at this point. Furthermore, there is not a great need for percutaneous drainage of a fluid collection. Therefore, I think exploration is really the only reasonable choice at this point. I explained to Tasha and her that the conduct of the operation would largely depend upon what is found. Obviously, I tried to explore as much as possible so long as it seems safe. At the very least, however, I would like to access the collection, and see and try to lavage it as clean as possible until almost certainly needs surgical drain. I really think something like diverticulitis or an enterotomy is far less likely in this scenario it remains within the differential diagnosis, and obviously will have to deal with what ever we find at the time of surgery. I think a lot he has a good understanding of this, and her and her had a chance to ask any questions that they had. I think she is capable of offering informed consent, and proceed to the operating room soon as possible. Subjective Subjective Interval history since last seen: Tasha finally had fever yesterday, and she continues to abdominal pain that seems fairly poorly controlled at this point. She also has increasing leukocytosis today. Exam GI Other: Abdomen remains nondistended, still quite tender, mostly in the suprapubic and right lower quadrants. Bowel sounds are quite hypoactive Objective Last Vital Signs Temp 98.6 F 01/06/25 10:24 Pulse 106 H 01/06/25 07:11 Resp 16 01/06/25 07:11 BP 151/85 H 01/06/25 07:11 Pulse Ox 88 L 01/06/25 07:11 Laboratory Results - last 24 hr 01/06/25 01/06/25 02:50 06:16 WBC 21.91 H RBC 3.89 L Hgb 12.7 Hct 37.1 MCV 95 MCH 32.6 MCHC 34.2 RDW 11.9 Plt Count 205 MPV 10.2 Sodium 140 Potassium 3.4 L Chloride 101 Carbon Dioxide 29.1 Anion Gap 9.9 BUN 7 Creatinine 0.5 L Est GFR (CKD-EPI 2020) 111.39 Glucose 74 Calcium 8.9 Ur Random Creatinine 52.78 U Random Total Protein 39.7 U [place] Prot/Creat Ratio 0.75 Time Spent with Patient Time Spent with Patient: >50 minutes Time was spent: preparing to see the patient(eg.review tests), ordering medications,tests, procedures, referring, communicating with other health hospice care sales consultant, indepentently interpreting results, counseling the patient and care coordination
--- NOTE | 2025-01-06 14:24 | W.ANESPRE ---
General Info Date of Service Date Performed: 01/06/25 Height: 5 ft 3 in Weight: 62 kg Body Mass Index (BMI): 24.2 Surgical Procedure: Operation Date: 01/06/25 14:40 Proposed Procedure Side Surgeon p Exploratory Laparoscopy, Possible Laparotomy Rhett Dorantes MD Meds Allergies and Home Medications Allergies Allergy/AdvReac Type Severity Reaction Status Date / Time bupropion (From Wellbutrin) AdvReac bad dreams Verified 01/03/25 05:06 Home Medication ?Medication ?Instructions ?Recorded triamcinolone acetonide 0.1 % 1 applic topical BID PRN eczema 09/02/19 topical cream #80 grams Held on 01/04/25. Instructions: not needed omeprazole 20 mg capsule,delayed 20 mg PO DAILY 05/13/24 release varenicline tartrate 0.5 mg (11)-1 See Rx Instructions PO DIRECTED 05/13/24 mg (42) tablets in a dose pack #53 dose pk (Chantix Starting Month Box) varenicline tartrate 1 mg tablet 1 mg PO BID #168 tabs 05/13/24 (Chantix Continuing Month Box) Held on 01/04/25. Instructions: not know atenolol 25 mg tablet 25 mg PO DAILY #90 tabs 06/10/24 rosuvastatin 10 mg tablet 10 mg PO DAILY #90 tabs 06/10/24 ondansetron 4 mg disintegrating 4 mg PO Q8H PRN #10 tabs 11/18/24 tablet Held on 01/04/25. Instructions: Pt Stopped/Never Started tramadol 50 mg tablet 50 mg PO Q8H PRN #9 tabs 12/31/24 Current Visit Medications: Current Medications Generic Name Dose Route Start Last Admin Trade Name Freq PRN Reason Stop Dose Admin Atenolol 25 mg 01/05/25 08:30 01/06/25 10:15 Atenolol 25 Mg Tab PO 25 mg DAILY NATTY Administration Enoxaparin Sodium 40 mg 01/05/25 08:30 01/06/25 10:15 Enoxaparin 40 Mg/0.4 Ml Syr SC 40 mg DAILY NATTY Administration Hydromorphone HCl 2 mg 01/04/25 17:00 01/06/25 09:54 Hydromorphone 2 Mg/Ml Syr IVP 2 mg Q2H PRN PRN Administration Ringer's Solution 1,000 mls @ 75 mls/hr 01/04/25 11:08 01/06/25 05:22 IV 75 mls/hr INFUSION NATTY Administration Acetaminophen 1,000 mg in 100 mls @ 400 mls/hr 01/04/25 11:08 01/05/25 17:55 Ofirmev IVPB Infused Q6H PRN PRN Infusion Piperacillin Sod/Tazobactam 50 mls @ 100 mls/hr 01/05/25 11:30 01/06/25 05:16 Sod 3.375 gm/ Sodium Chloride IVPB 100 mls/hr Q6H NATTY Administration IV Miscellaneous Supplies 1 each 01/04/25 08:15 Iv Access-Emergency Dept IV DIRECTED NATTY IV Miscellaneous Supplies 1 each 01/04/25 11:08 Iv Access IV DIRECTED NATTY Nicotine 14 mg 01/06/25 13:13 01/06/25 13:32 Nicotine 14 Mg/24 Hr Patch TD 14 mg DAILY PRN PRN Administration Ondansetron HCl 4 mg 01/04/25 11:08 01/05/25 22:45 Ondansetron 4 Mg/2 Ml Vial IVP 4 mg Q4H PRN PRN Administration Pantoprazole Sodium 40 mg 01/04/25 12:01 01/06/25 10:14 Pantoprazole 40 Mg Vial IVP 40 mg DAILY NATTY Administration Polyethylene Glycol 17 gm 01/05/25 08:18 01/05/25 21:12 Polyethylene Glycol 3350 17 Gm Packet PO 17 gm BID PRN PRN Administration Rosuvastatin Calcium 10 mg 01/05/25 08:30 01/06/25 10:15 Rosuvastatin 10 Mg Tab PO 10 mg DAILY NATTY Administration Sodium Chloride 0 ml 01/04/25 11:08 01/06/25 10:15 Normal Saline Flush 10 Ml Syr IVP 10 ml PRN PRN Administration Sodium Chloride 0 ml 01/04/25 20:00 01/05/25 21:04 Normal Saline Flush 10 Ml Syr IVP 10 ml BID NATTY Administration Sodium Chloride 0 ml 01/04/25 11:08 Normal Saline 10 Ml Vial IJ DIRECTED PRN PFSH Active Problems Active Problems: Problem Status Onset Code DVT prophylaxis Acute Z29.9 Hematuria Acute R31.9 Abdominal pain, RLQ Acute R10.31 Postoperative abdominal pain Acute R10.9, G89.18 Post-operative pain Acute G89.18 Chronic cholecystitis Acute K81.1 Cigarette smoker Chronic F17.210 Cervicalgia Chronic M54.2 Hallux rigidus of right foot Chronic M20.21 Chronic low back pain Chronic M54.50, G89.29 Atopic dermatitis Chronic L20.9 Medical History Medical History (Updated 01/04/25 @ 14:41 by Paul Alves) Abnormal uterine bleeding heavy menses, on progesterone therapy ~5813-8734 GERD (gastroesophageal reflux disease) Hyperlipidemia Essential hypertension Surgical History Surgical History History of laparoscopic cholecystectomy (~12/2024) History of esophagogastroduodenoscopy (EGD) (04/30/20) History of colonoscopy (04/30/20) History of bilateral tubal ligation (~1991) Tobacco Smoking/Tobacco Use Status: Current every day Tobacco Type: cigarettes Passive smoking exposure: Yes Second hand exposure: Yes Alcohol Alcohol Intake: current Alcohol intake frequency: holidays/special occasions only Alcohol type: beer and other Substance Use Substance use: Never Substance use type: does not use Prental History History 2 Para 2 Hx # Term Pregnancies Multiple births Hx # Pregnancies Ectopic pregnancies AB induced Hx Number of Living Children 2 AB spontaneous Vital Signs and Lab Results Vital Signs Most Recent Vital Signs in EMR: Most Recent Vital Signs Temp Pulse Resp BP Pulse Ox 37.0 C 106 H 16 151/85 H 88 L 01/06/25 10:24 01/06/25 07:11 01/06/25 07:11 01/06/25 07:11 01/06/25 07:11 Lab Results 01/06/25 06:16 01/06/25 06:16 Complete Blood Count: WBC, (4.4-10.8) 21.91 10^3/uL H Today, 06:16 RBC, (3.93-5.22) 3.89 10^6/uL L Today, 06:16 Hgb, (11.2-15.7) 12.7 g/dL Today, 06:16 Hct, (36.0-46.0) 37.1 % Today, 06:16 Plt Count, (130-400) 205 10^3/uL Today, 06:16 VBG Lactate, (<or=2.0) 1.5 mmol/L 07/26/25, 08:00 Complete Metabolic Panel: Sodium, (136-145) 140 mmol/L Today, 06:16 Potassium, (3.5-5.1) 3.4 mmol/L L Today, 06:16 Chloride, (98-107) 101 mmol/L Today, 06:16 Carbon Dioxide, (21.0-32.0) 29.1 mmol/L Today, 06:16 BUN, (7-18) 7 mg/dL Today, 06:16 Creatinine, (0.55-1.02) 0.5 mg/dL L Today, 06:16 Est GFR (CKD-EPI 2020), (mL/min/1.73m2) 111.39 Today, 06:16 Calcium, (8.5-10.1) 8.9 mg/dL Today, 06:16 Albumin, (3.4-5.0) 3.6 g/dL 01/05/25, 05:55 Glucose, (74-106) 74 mg/dL Today, 06:16 Liver Function Panel: ALT, (14-59) 21 U/L 01/05/25, 05:55 AST, (15-37) 15 U/L 01/05/25, 05:55 Coagulation Panel: INR, (0.9-1.1) 1.1 01/04/25, 08:35 PT, (9.1-11.1) 11.1 sec 01/04/25, 08:35 APTT, (20.6-30.2) 21.9 sec 01/04/25, 08:35 Pancreas Panel: Lipase, (<78) 31 U/L 01/04/25, 08:00 Imaging and Studies Imaging and Studies Study information below may be from another EMR and interpreted by another provider. Please see original notes in EMR for more complete details. EKG Summary: november 2024 Conclusion Sinus rhythm...normal P axis, V-rate 60- 99 Inferior infarct, old...Q >35mS, II III aVF Consider anteroseptal infarct...Q >30mS, dimin R, V1-V2 There are no significant changes compared to prior EKG performed on 08/10/2020 at 09:06. Stress Test Summary: mar 2021 Stress ECG Conclusion 1. The resting electrocardiogram was normal 2. Patient exercised on the Julián protocol and completed a workload of 13.48 METS, limited by fatigue 3. Normal heart rate and blood pressure response to exercise. Patient achieved 94% of predicted heart rate for age 4. Electrocardiographically there was no evidence of myocardial ischemia 5. There were no dysrhythmias Gómez Treadmill Score is 7.6 which is Low risk. Anesthesia Assessment and Plan Anesthesia History Personal History: No History of Anesthesia Complications Family History: No Family History of Anesthesia Complications Exercise Tolerance Exercise Tolerance: Metabolic Equivalents<4 Pertinent Negatives Pertinent Negatives: No Major Cardiovascular Symptoms or Complaints, No Major Pulmonary Symptoms or Complaints, No History of CVA/TIA and Other (current nausea and vomiting this morning ) Cardiac & Pulmonary Exam Cardiac Exam: Normal S1/S2 Heart Sounds Pulmonary Exam: Clear Bilateral Breath Sounds (dim bases ) Implantable Cardiac Device Does patient have a Pacemaker or an ICD?: No Airway Exam Known Difficult Airway: No Mallampati Class: 2 Mouth Opening: Normal (> 3cm) Thyromental Distance: Greater than 3 cm Neck Range of Motion: Full ROM Neck Circumference: Normal Teeth Condition: Normal Dentition ASA Classification ASA Score: ASA 3 Emergency Case?: Yes NPO Status NPO Status: Full Stomach Status Status: Not Relevant due to Medical History Anesthesia Plan Resuscitation Status: Full Code Anesthesia Technique: General Anesthesia Airway Planned: Endotracheal Tube Monitors Used: Standard Monitors Preoperative Comments:: 54 yo female s/p lap hcarity with abdominal pain and elevated wbc to OR for exploration.
--- NOTE | 2025-01-06 15:10 | PDOC.CMPRO ---
Date of service: 01/06/25 Time of Service: 15:11 Care Management Progress Note Progress Note Text Progress Note Text: Tasha was awake and lying in bed when CM met with her. She was accompanied by her mother, and daughter. She had imaging this morning and is scheduled to go back to the OR this afternoon for exploratory surgery. Tasha expressed hope that the source of her symptoms will be identified, as she is eager to feel better. CM will follow. Discharge Potential Discharge Needs: PCP F/U Appt and Surgical F/U Appt Anticipated Barriers to Discharge: None Identified Patient/Family Education Needs: Review discharge instructions, discuss Ask Me Three Transportation: Private vehicle Plan: Anticipate, Tasha will discharge home via private vehicle with family when medically ready to discharge. Pt will follow up with community providers (Surgical/PCP) and her discharge plan of care as directed. No new services are anticipated at this time. CM will follow. Social Determinants of Health Screening Social Determinants of health last assessed in clinic: 01/06/25 Will the Patient Participate in the Screening?: Yes Do you worry about having a steady place to live?: yes What is your living situation today?: I have housing today, but am worried about losing it Problems where you live: no known problems In the past 12 months, have you had to go without electric, gas, oil or water in your home?: no 1. Within the past 12 months, we worried whether our food would run out before we got money to buy more.: Never true 2. Within the past 12 months, the food we bought just didn't last and we didn't have money to get more.: Never true Has lack of transportation kept you from medical appointments or from doing things needed for daily living?: no Has anyone in your life made you feel unsafe or unsupported?: no How hard is it for you to pay for the very basics like food, housing, medical care, and heating? Would you say it is:: Not hard at all Do you want help finding or keeping work or a job?: I do not need or want help If for any reason you need help with day-to-day activities such as bathing, preparing meals, shopping, managing finances, etc., do you get the help you need?: I don?t need any help How often do you feel lonely or isolated from those around you?: Never Do you speak a language other than Estonian at home?: No Does the patient want assistance with any of the above?: No Health Related Social Needs Health related social needs: housing instability, housed, with risk of homelessness (Z59.811)
[2025-01-06] MEDS: Lactated Ringers 1,000 ML 30 ML IV (15:12)
[2025-01-06] MEDS: Bupivacaine 0.5% Pres-Free W/EPI 30 ML VIAL (15:49)
--- NOTE | 2025-01-06 16:04 | PGE_ITS ---
Date of Service Date of service: 01/06/25 Time of Service: 09:00 Assessment and Plan Assessment and plan (1) Abdominal pain, RLQ: Status: Acute Assessment and plan: Severe RLQ pain starting 4 days after laproscopic cholecystectomy without clear etiology, now POD 7. Symptoms and urine results c/w renal stone, but two CTs negative, including non- contrast 01/04, only stone is on left and is not obstructive. Possible colitis on right side on 01/03 CT, but cause unclear, no signs of perforation of bowel complicating surgery. Pelvic veins prominent on left side on 01/03 CT, which can be seen with pelvic congestive syndrome, but her symptoms are on the right She does still have her ovaries and uterus, but no pathology evident on multiple CT scans. Benign bimanual pelvic exam, just some tenderness posteriorly, but no masses on rectal 01/05. Timing suggests this is related to surgery. There is fluid in the pelvis, but not a clearly abnormal amount after surgery. WBC now >20 despite starting pip/tazo, raising concern for evolving peritonitis. HIDA negative for bile leak, Dr. Dorantes taking her back for surgical exploration. Will await operative findings, see surgery notes. (2) Hematuria: Status: Acute Assessment and plan: blood and protein in the urine, which can suggest an intrinsic nephritis, but normal renal function, not other findings like RBC/WBC casts and proteinuria not nephrotic level. She had 5-10 RBCs since November. With her risks, this should be followed as outpatient with work up including cystoscopy. (3) Cigarette smoker: Status: Chronic Assessment and plan: had been given varenicline for cessation, never started, on nicotene TD here. (4) DVT prophylaxis: Status: Acute Assessment and plan: enoxaparin per surgery Subjective Subjective Patient reports: voiding w/o difficulty and nausea; denies shortness of breath or fever Interval history since last seen: Continues with pain in RLQ, no better. Still not tolerating much PO, NPO now for HIDA per Dr. Dorantes. Exam Narrative Exam Narrative: GEN: Alert and oriented, more comfortable appearing today sitting up in bed. LUNGS: CTAB with normal effort CV: RRR with no murmurs, gallops, or rubs. ABD: active bowel sounds, soft, nondistended, no masses, tender more diffusely today, moreso in suprapubic/RLQ. No rebound/guarding EXT: no cyanosis, clubbing, or edema Objective Last Vital Signs Temp 37.0 C 01/06/25 10:24 Pulse 106 H 01/06/25 07:11 Resp 16 01/06/25 07:11 BP 151/85 H 01/06/25 07:11 Pulse Ox 88 L 01/06/25 07:11 Laboratory Results - last 24 hr 01/06/25 01/06/25 02:50 06:16 WBC 21.91 H RBC 3.89 L Hgb 12.7 Hct 37.1 MCV 95 MCH 32.6 MCHC 34.2 RDW 11.9 Plt Count 205 MPV 10.2 Sodium 140 Potassium 3.4 L Chloride 101 Carbon Dioxide 29.1 Anion Gap 9.9 BUN 7 Creatinine 0.5 L Est GFR (CKD-EPI 2020) 111.39 Glucose 74 Calcium 8.9 Ur Random Creatinine 52.78 U Random Total Protein 39.7 U [place] Prot/Creat Ratio 0.75 Time Spent with Patient Time Spent with Patient: 25-34 minutes Time was spent: preparing to see the patient(eg.review tests), obtaining and/or reviewing separately otained hiistory, ordering medications,tests, procedures, referring, communicating with other health healthcare science specialist, indepentently interpreting results, counseling the patient and care coordination
--- NOTE | 2025-01-06 16:30 | SOFT_PTH ---
PATIENT: Tasha Mcmahan LOC: U#:[id number] AGE/SX: 54/F ROOM: RE01/04/[address]: Rhett Dorantes MD : [id number] BED: A DIS: 01/07/2025 SPEC #: [id number] RECD: 01/06/25 17:41 STATUS: JENNIFER REQ #: [id number] MARLEE: 01/06/25 16:[address]: Rhett Dorantes DEPT: Surgical Specimen RECD BY: Fawn Hardin ENTERED: 01/06/25 17:42 SP TYPE: SOFT OTHR DR: Coreen Stevenson, Paul Cevallos Tissues: 1 - SOFT TISSUE MISC (INC. LIPOMA) Procedures: GROSS AND MICRO LEVEL 4 Comments: [id number]
--- NOTE | 2025-01-06 17:11 | ROE_ITS ---
Operative Note Operative Note PRE-OP DIAGNOSIS: Pelvic abscess POST-OP DIAGNOSIS: other (Torsed right ovarian mass) PROCEDURE: Diagnostic laparoscopy with detorsion of right ovarian mass, right-sided oophorectomy SURGEON: Rhett Dorantes ASSISTING SURGEON: Sophia Hart ANESTHESIA TYPE: Local By Surgeon and General LMA/ETT Refer to Anesthesia Record ESTIMATED BLOOD LOSS: 25 PATHOLOGY: other (Pelvic mass) COMPLICATIONS: None Patient was transported to: PACU Patient's condition: stable Indications: Tasha is a 54-year-old woman who underwent laparoscopic cholecystectomy 6 days ago. Her postoperative course has been complicated by right lower quadrant abdominal pain, and an abnormality on the CT scan raising concern for pelvic abscess or hematoma. Findings: Torsed right ovarian mass Procedure Description: I met with Tasha in the preoperative area, and we reviewed the plan for surgery once again. We then moved back to the operating room. She was assisted onto the OR table. Care was taken to make sure that she was padded and supported appropriately. A Morrison urinary catheter was inserted in the usual fashion. I then prepped and draped the anterior abdominal wall. I anesthetized the skin over the left upper quadrant at Hathaway's point, I made a small skin incision. Next, using 5 mm optical viewing port, establish pneumoperitoneum. The right upper quadrant was normal-appearing, and I did not see any signs of bile leakage, or any hematoma or abscess in the area of the gallbladder fossa. Tasha was then placed in some Trendelenburg positioning. I added a 5 mm port in the left mid abdomen after anesthetizing the skin and peritoneum. There was some scant fluid in the pelvis anterior to the uterus with a slight blood tinge to it. It did not appear purulent. The appendix was examined as some of the features here were concerning for perforated appendicitis. There was some t hickening of the mesoappendix, but it appeared reactionary, and not pathologic. The appendix itself was normal and healthy appearing. The greater omentum was grasped, and retracted cephalad. This spilled some small intestine out of the pelvic inlet, and revealed a large ischemic mass sitting in the pouch of Rigoberto. The area of the right fallopian tube appeared torsed. Next, I traced to the descending colon along the sigmoid segment, down into the pelvic inlet. The past posterior to the mass, and appeared distinct from it. At this point, the pathology seemed most consistent with some type of torsed right ovarian problem. I placed another 5 mm port just above the umbilicus. Next, using bowel graspers, I carefully dissected around the circumference of the mass. Aside from the tethered point, it appeared otherwise free-floating within the pelvis. I was able to detorse it by twisting counterclockwise along the pedicle. Clearly, however, it was ischemic for some time, and none of it was at all viable. Once it was detorsed, I divided what I suspect was the ovarian ligament. Tasha has had a tubal ligation, and some of the pathology was a little bit distorted from the scarring. Once it was completely divided, it was clear that there would be no way that this could be removed laparoscopically. Therefore, I made an infraumbilical longitudinal incision after anesthetizing the skin. I dissected down to the subcutaneous tissue and opened the fascia in the midline. A wound protection device was placed, and the mass was then delivered up and out of the pelvis. It was passed off the field labeled as a pelvic mass for pathologic diagnosis. The surgical site was hemostatic. It was gently irrigated. Again, there was no evidence of any infection. The fascia was then closed using 2-0 PDS suture from the top and bottom. The skin and subcutaneous tissues were irrigated. These also appeared hemostatic. Interrupted 2-0 Vicryl stitches were used to obliterate the subcutaneous space, and the skin was closed with a surgical stapler. The 5 mm ports were all removed, and those sites were also irrigated clean, and closed with surgical gina. Band-Aids were applied, the Morrison catheter was removed, Tasha was extubated, and transferred to the recovery unit. Date of Procedure: 01/06/25
[2025-01-06] MEDS: fentaNYL 100 MCG/2 ML VIAL IVP (17:26)
--- NOTE | 2025-01-06 17:31 | W.ANESPOSTOP ---
Postoperative Evaluation Date, Time and Location Date Performed: 01/06/25 Time Performed: 17:32 Patient Location: PACU Vital Signs Most Recent Imported Vital Signs: Most Recent Vital Signs Temp Pulse Resp BP Pulse Ox 36.9 C 75 20 132/49 L 93 01/06/25 17:27 01/06/25 17:25 01/06/25 17:25 01/06/25 17:25 01/06/25 17:25 Pain Score Most Recent Pain Score: Most Recent Pain Score Pain Level 5 01/06/25 17:27 Assessment Mental Status: Awake (Alert & Oriented to Patient Baseline) Airway and Respiratory Function: Patent airway with normal (patient baseline) respiratory exam Cardiovascular Function: Hemodynamically Stable Hydration Status: Adequately Hydrated Nausea & Vomiting: No Nausea or Vomiting Pain: Pain is Moderate or Severe Postoperative Pain Management: Pain being addressed with medication Peripheral Nerve Block: Patient did not receive a nerve block
[2025-01-06] MEDS: Ketorolac 15 MG/ML VIAL IVP (19:35)
[2025-01-06] MEDS: ACETAMINOPHEN 1,000 MG/100 ML BAG 400 MG IVPB (20:47)
[2025-01-07] MEDS: PIPERACILLIN/TAZO 3.375 GM in Normal Saline 50 ML IVPB ×2 (00:09→06:29)
[2025-01-07] MEDS: Normal Saline Flush 10 ML SYR IVP ×2 (00:10→08:25)
[2025-01-07] MEDS: Ketorolac 15 MG/ML VIAL IVP ×3 (00:10→17:45)
[2025-01-07 06:55] LABS: HCT 35.5 % (36.0-46.0); HGB 12.1 g/dL (11.2-15.7); MCH 31.7 pg (27.0-33.0); MCHC 34.1 % (32.0-36.0); MCV 93 fL (80-95); MPV 10.6 fL (8.0-11.0); Platelet Count 199 10^3/uL (130-400); RBC 3.82 10^6/uL (3.93-5.22); RDW 12.0 % (11.7-14.6); RDW-SD 40.7 fL; WBC 16.35 10^3/uL (4.4-10.8)
[2025-01-07 07:09] VITALS: BP 147/66; PULSE 75; RESP 17; TEMP 36.4; O2SAT 97
[2025-01-07] MEDS: Rosuvastatin 10 MG TAB PO (07:41)
[2025-01-07] MEDS: Atenolol 25 MG TAB PO (07:41)
[2025-01-07] MEDS: Omeprazole 20 MG CAPCR PO (07:42)
[2025-01-07] MEDS: Enoxaparin 40 MG/0.4 ML SYR SC (07:42)
[2025-01-07] MEDS: Nicotine 14 MG/24 HR PATCH TD (10:05)
[2025-01-07] MEDS: Acetaminophen 500 MG TAB 1000 MG PO (11:32)
--- NOTE | 2025-01-07 12:54 | AC.ASSESS ---
Asthma Clinic Visit
--- NOTE | 2025-01-07 12:54 | CHAPLAIN ---
Tasha was resting in bed when I visited. Her mom was with her. 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 She'd had some severe pain following a laproscopic procedure and said she's feeling better today. She was on her phone trying to get some answers about and radiology bill she'd just received. Her works near by here and will be stopping in later today. I explained my role and offered support..
--- NOTE | 2025-01-07 16:35 | W.PM.PROGNOT ---
Date of Service Date of service: 01/07/25 Time of Service: 16:35 Assessment and Plan Assessment and plan (1) Abdominal pain, RLQ: Status: Acute Assessment and plan: Severe RLQ pain starting 4 days after laproscopic cholecystectomy without clear etiology, now POD 8 after charity, POD 1 after lapartomy and removal of torsed ovary?. Clearly improved clinically. WBC down. Possible d/c, await surgical recommendations. (2) Hematuria: Status: Acute Assessment and plan: No nephritis. She had 5-10 RBCs since November. With her risks, this should be followed as outpatient with work up including cystoscopy. Discussed with patient. (3) Cigarette smoker: Status: Chronic Assessment and plan: had been given varenicline for cessation, never started, on nicotene TD here. She feels cravings still, gum PRN. she is motivated to stop. (4) DVT prophylaxis: Status: Acute Assessment and plan: enoxaparin per surgery Subjective Subjective Patient reports: feels better, tolerating a regular diet and voiding w/o difficulty; denies bowel movement, nausea, vomiting, shortness of breath or fever Interval history since last seen: Feels much better. Pain around the incision but much less pain in RLQ. no fever. ate breakfast. Feels like needs a BM but hasn't Exam Narrative Exam Narrative: GEN: Alert and oriented, comfortable appearing today sitting in chair LUNGS: CTAB with normal effort CV: RRR with no murmurs, gallops, or rubs. ABD: active bowel sounds, soft, nondistended, no masses, mild tenderness below umbilicus around dressing, clean/dry/intact. No rebound/guarding EXT: no cyanosis, clubbing, or edema Objective Last Vital Signs Temp 36.4 C L 01/07/25 07:09 Pulse 75 01/07/25 07:09 Resp 17 01/07/25 07:09 BP 147/66 H 01/07/25 07:09 Pulse Ox 97 01/07/25 07:09 Laboratory Results - last 24 hr 01/07/25 06:38 WBC 16.35 H RBC 3.82 L Hgb 12.1 Hct 35.5 L MCV 93 MCH 31.7 MCHC 34.1 RDW 12.0 Plt Count 199 MPV 10.6 Time Spent with Patient Time Spent with Patient: 25-34 minutes Time was spent: preparing to see the patient(eg.review tests), obtaining and/or reviewing separately otained hiistory, referring, communicating with other health health care analyst, indepentently interpreting results, counseling the patient and care coordination
--- NOTE | 2025-01-07 17:02 | W.PM.DS.N ---
Date of service: 01/08/25 Time of Service: 17:02 DS: Diagnosis Discharge Diagnosis (1) Abdominal pain, RLQ: Status: Acute Asessment and Plan: Postoperative follow-up Discharge Plan Disposition Patient Disposition: Home Condition: Improving Discharge Details Reason For Visit: Post Surgical Pain Admit Date/Time: 01/04/25 09:56 Admit Provider: Rhett Dorantes Attending Provider: Rhett Dorantes Primary Care Provider: [facility] Course Hospital Course: Tasha is 54 years old. She underwent laparoscopic cholecystectomy for chronic cholecystitis with septated gallbladder last week. Postoperative course was complicated by increasing abdominal pain, and she came back to the emergency department where a CT scan demonstrated an abnormality in the pelvis. She was admitted, labs were trended, and antibiotics were initiated as she started to develop a leukocytosis. Bile leak was ruled out. With no clear source of the symptoms, she was brought back to the operating room. She underwent diagnostic laparoscopy that revealed a torsed right ovarian mass. She underwent oophorectomy, did well, was discharged home with outpatient follow-up. Home Meds and New Rx's Prescriptions: Continued varenicline tartrate [Chantix Starting Month Box] 0.5 mg (11)- 1 mg (42) tablets,dose pack See Rx Instructions PO DIRECTED Qty: 53 0RF Patient Comments: on hold Rx Instructions: Take 0.5mg daily days 1 to 3, 0.5mg twice a day days 4-7, then 1mg twice a day for 11wks varenicline tartrate [Chantix Continuing Month Box] 1 mg tablet 1 mg PO BID Qty: 168 0RF Patient Comments: on hold omeprazole 20 mg capsule,delayed release(DR/EC) 20 mg PO DAILY triamcinolone acetonide 0.1 % cream 1 applic TP BID PRN (Reason: eczema) Qty: 80 4RF rosuvastatin 10 mg tablet 10 mg PO DAILY Qty: 90 3RF atenolol 25 mg tablet 25 mg PO DAILY Qty: 90 3RF Rx Instructions: Take 1 tablet by mouth daily ondansetron 4 mg tablet,disintegrating 4 mg PO Q8H PRNQty: 10 0RF tramadol 50 mg tablet 50 mg PO Q8H PRNQty: 9 0RF Rx Instructions: Take 1 tablet by mouth up to every 8 hours if needed for severe pain. Discharge Instructions Additional Instructions: Tasha, so glad you are on the mend. As we talked about before your discharge, I would encourage you to continue using a little bit of MiraLAX over the next few days to kick start your GI tract. Use 1 capful mixed with 8 ounces of liquid, once with breakfast, once with lunch, once with dinner. You should be up and moving around to psych after your gallbladder surgery, although you may have a little bit more pain related to this recent incision. Similar to the gallbladder surgery, you can use some ice packs over the bandage if that is helpful. I also renewed the prescription for tramadol in case you need that. I will have my office reach out to you tomorrow to schedule a follow-up visit. We might actually be able to use your gallbladder surgery visit, but we will try to find something that accommodates you. If you need anything at all, or have any questions, please do not hesitate to call me at [phone]. you had some blood in your urine. You have had this before in November. You should have a referral to urology to look at your bladder (cystoscopy) use patch and gum to help with cigarrette cravings. Good luck with quitting smoking. Activity:: No heavy lifting Equipment/Supplies:: No Equipment Needed Diet:: As Tolerated DS: Summary Time Spent with Patient providing and/or coordinating discharge services: Less than 30 minutes Status at Discharge Functional status at discharge: independent ambulation Overall status at discharge: patient is progressing back to baseline Mental Status: mental status grossly normal Speech and Movement: speech and movement normal Mood: congruent mood Affect: normal affect Quality:SDOH Health Related Social Needs: Health related social needs risk of homeless Exam GI Other: Abdomen is soft and nondistended. Incision is appropriately tender. Bandages are clean and dry. Psych Mental Status: mental status grossly normal Speech and Movement: speech and movement normal Mood: congruent mood Affect: normal affect DS: Data Vitals/I&O Vitals and I&O: Vital Signs Temperature 97.5 F L 01/07/25 07:09 Temperature Source Temporal Artery Scan 01/07/25 07:09 Pulse 75 01/07/25 07:09 Pulse 75 01/06/25 17:31 Respiratory Rate 17 01/07/25 07:09 Respiratory Effort Normal 01/04/25 10:54 Respiratory Depth Normal 01/04/25 10:54 Respiratory Pattern Normal 01/04/25 10:54 Blood Pressure 147/66 H 01/07/25 07:09 Blood Pressure Mean 93 01/07/25 07:09 Pulse Oximetry 97 01/07/25 07:09 Respiratory End-tidal CO2 30 01/06/25 17:15 Oxygen Delivery Method Room Air 01/07/25 10:51 Oxygen Flow Rate 0 01/07/25 10:51 Pain Level 1 01/07/25 12:13 Intake & Output 01/06/25 01/07/25 01/07/25 23:59 11:59 23:59 Intake Total 1563.75 / 2663.75 997.5 / 1717.5 720 / 1717.5 Output Total 525 / 925 700 / 700 Balance 1038.75 / 1738.75 297.5 / 1017.5 720 / 1017.5 Weight 136 lb 10.986 oz Intake: IV 1563.75 / 2663.75 997.5 / 1147.5 150 / 1147.5 Oral 570 / 570 Output: Urine 500 / 900 700 / 700 Estimated Blood Loss Other: Urine Color Light Ketty Light Ketty Urine Appearance Cloudy Cloudy Urine Odor Normal Normal Comment Pt reports no pain w/ void att. Emesis Description None None Data Completed and Pending Labs on day of discharge: Labs from last 24 hours 01/07/25 06:38 WBC 16.35 H RBC 3.82 L Hgb 12.1 Hct 35.5 L MCV 93 MCH 31.7 MCHC 34.1 RDW 12.0 Plt Count 199 MPV 10.6 Preliminary micro results at discharge 01/05/25 08:54 Blood Blood Culture - Preliminary NO GROWTH 48 HOURS 01/05/25 09:02 Blood Blood Culture - Preliminary NO GROWTH 48 HOURS PFSH All Active Problems (Updated 01/04/25 @ 14:41 by Paul Alves) DVT prophylaxis (Acute) Hematuria (Acute) Abdominal pain, RLQ (Acute) Postoperative abdominal pain (Acute) Post-operative pain (Acute) Chronic cholecystitis (Acute) Cigarette smoker (Chronic) Annual LDCT Cervicalgia (Chronic) Hallux rigidus of right foot (Chronic) Chronic low back pain (Chronic) Atopic dermatitis (Chronic) Medical History (Updated 01/04/25 @ 14:41 by Paul Alves) Abnormal uterine bleeding heavy menses, on progesterone therapy ~[id number] GERD (gastroesophageal reflux disease) Hyperlipidemia Essential hypertension Surgical History History of laparoscopic cholecystectomy (~12/2024) History of esophagogastroduodenoscopy (EGD) (04/30/20) History of colonoscopy (04/30/20) History of bilateral tubal ligation (~1991) Family History Mother Hyperlipidemia Alcohol abuse Depression Hypertension Father , was 76 lung problems with sepsis, pneumonia 05/06/24 Heart disease Hyperlipidemia Stroke Alcohol abuse Myocardial infarction x 4 Hypertension Type 2 diabetes mellitus COPD (chronic obstructive pulmonary disease) Sister Alcohol abuse Substance abuse Hypertension Sister Alcohol abuse Hypertension Brother Substance abuse Daughter Anxiety Daughter Depression Paternal Grandfather No problems noted. Paternal Grandmother Hyperlipidemia Hypertension Heart disease Maternal Grandfather Alcohol abuse Maternal Grandmother , In her 50s of [place] Hypertension Hyperlipidemia Type 2 diabetes mellitus Heart disease Stroke Myocardial infarction Social History Smoking/Tobacco Use Status: Current every day Tobacco Type: cigarettes Tobacco: How many years used: 30 Quit status: considering quitting Second Hand Exposure: Yes Smoking risk assessment performed?: Yes Alcohol Intake: current Alcohol Intake frequency: holidays/special occasions only Alcohol type: beer and other Drug use: Never Substance use type: does not use Adopted: No Caregiver/Support person: No Foster care: No Household members: spouse Housing: house Number of Children: 2 number of grandchildren: 4 Communication Needs: Corrective Lenses Education Level: high school Do you need help understanding health information?: Rarely 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 Pets and animals: No Sexually active: Yes Do you think of yourself as: straight/heterosexual Current gender identity: female Other: self employed What is your relationship status?: How often do you talk on the phone with friends or family?: three or more times per week How often do you get together with friends or relatives?: once per week How often do you attend amish or samaritan services?: decline to answer Do you belong to any clubs or organized social groups?: no Panel score (0-1 are the most socially isolated patients): 2 What type of physical activity do you participate in: none Estela/Gnosticist: None Special estela needs: No Agree to transfusion: Yes Seatbelt use: always Helmet use: Yes Drive intox or ride w/intox power truck driver: No Working smoke detector in home: Yes Carbon monox detector in home: Yes Firearms in home: Yes Firearms unloaded and locked: Yes Do you feel safe at home: Yes Do you feel safe in your relationship?: Yes Female Reproductive History Menstrual control method: permanent sterilization (BTL) Menopause type: natural Date of menopause: 06/11/20 History History 2 Para 2 Hx # Term Pregnancies Multiple births Hx # Pregnancies Ectopic pregnancies AB induced Hx Number of Living Children 2 AB spontaneous Time Spent with Patient Time Spent with Patient: 45-69 minutes Time was spent: preparing to see the patient(eg.review tests), indepentently interpreting results and counseling the patient
--- NOTE | 2025-01-07 17:08 | W.PM.PROGNOT ---
Date of Service Date of service: 01/07/25 Time of Service: 17:08 Assessment and Plan Assessment and plan (1) Abdominal pain, RLQ: Status: Acute Assessment and plan: Tasha is doing great after right sided oophorectomy. I discharged her home this afternoon, and follow-up as an outpatient Subjective Subjective Interval history since last seen: Tasha Is doing much better today. He has been up and out of the chair and walking around. She is tolerating regular food without any nausea or vomiting. She is emptying her bladder with less dysuria. Exam GI Other: Abdomen is soft and nondistended. Bandages are all clean and dry. Objective Last Vital Signs Temp 97.5 F L 01/07/25 07:09 Pulse 75 01/07/25 07:09 Resp 17 01/07/25 07:09 BP 147/66 H 01/07/25 07:09 Pulse Ox 97 01/07/25 07:09 Laboratory Results - last 24 hr 01/07/25 06:38 WBC 16.35 H RBC 3.82 L Hgb 12.1 Hct 35.5 L MCV 93 MCH 31.7 MCHC 34.1 RDW 12.0 Plt Count 199 MPV 10.6 Time Spent with Patient Time Spent with Patient: 25-34 minutes Time was spent: preparing to see the patient(eg.review tests), indepentently interpreting results and counseling the patient
--- NOTE | 2025-01-07 17:52 | PDOC.CMDIS ---
Date of service: 01/07/25 Time of Service: 17:52 LACE Index Scoring Tool Questions: Length of Stay (in days): 3 Was the patient admitted via the E.D.?: Yes E.D. Visits: 3 Answers: Total Score: 9 Risk of Readmission: Low Risk Care Management Discharge Plan Reason for Hospitalization: abdominal pain - s/p diagnostic laparoscopy that revealed a torsed right ovarian mass. She underwent oophorectomy. Discharge Plan: Tasha is discharged home today with no new services. She will f/u with her PCP and the surgeon and continue per her plan of care. Tasha will transport home with her . Patient/Family Education Needs: Review of discharge instructions, activity, limitations, and discuss Ask me 3. SDOH Health Related Social Needs: Health related social needs risk of homeless
== END 2025-01-07 17:56 | disposition home or self-care (01) ==
LOC: ER 10:22 → MS 10:45
PROVIDERS: Family Medicine; Admitting Provider Surgery; Emergency Provider Registered Nurse Emergency; PCP Nurse Practitioner Family; Responsible Provider Surgery; Visit Provider Surgery
PROC: (CPT 49320; principal; 2025-01-06 14:30)
DX: N83.511 Torsion of right ovary and ovarian pedicle (principal); Z53.31 Laparoscopic surgical procedure converted to open procedure; R19.09 Other intra-abdominal and pelvic swelling, mass and lump; G89.18 Other acute postprocedural pain; R10.31 Right lower quadrant pain; F17.210 Nicotine dependence, cigarettes, uncomplicated; I10 Essential (primary) hypertension; K21.9 Gastro-esophageal reflux disease without esophagitis; Z79.899 Other long term (current) drug therapy; G89.29 Other chronic pain; E78.5 Hyperlipidemia, unspecified; M54.50 Low back pain, unspecified; M54.2 Cervicalgia; R31.9 Hematuria, unspecified
CPT/HCPCS: 58940; 00123; 36415; 78227; 80048; 80053; 80076; 83690; 85027; 87040; 88305; 96361; 96365; 96366; 96367; 96372; 96375; 96376; 99285; J1650; 74176; 81003; 81015; 82565; 83605; 84156; 85025; 85610; 85730; 88304; 99222; 99232; G0378; J0131; J1100; J1171; J1885; J2003; J2250; J2270; J2371; J2405; J2470; J2543; J2704; J3010

== ENCOUNTER 2025-01-14 16:24 | Outpatient (REF) | payer OTHER, SELFPAY | END 2025-01-14 16:25 | disposition home or self-care (01) | LOC: LBN 16:24 | PROVIDERS: PCP Nurse Practitioner Family; Visit Provider Nurse Practitioner Family | DX: N89.8 Other specified noninflammatory disorders of vagina (principal) | CPT/HCPCS: 87480; 87510; 87660 ==

== ENCOUNTER 2025-04-21 14:16 | Outpatient (REF) | payer OTHER, SELFPAY ==
[2025-04-21 15:38] LABS: C & S Indicated? No; Glucose Negative (Negative); RBC 20-50 HPF (0-2); WBC Negative HPF (0-5)
== END 2025-04-21 14:17 | disposition home or self-care (01) ==
LOC: LBN 14:16
PROVIDERS: PCP Nurse Practitioner Family; Visit Provider Nurse Practitioner Gerontology
DX: R31.9 Hematuria, unspecified (principal)
CPT/HCPCS: 81003; 81015

== ENCOUNTER 2025-05-19 10:28 | Outpatient (CLI) | payer OTHER, SELFPAY ==
[2025-05-19 09:50] LABS: Abs Immature Grans 0.01 10^3/uL (0.0-0.06); HCT 43.1 % (36.0-46.0); HGB 14.2 g/dL (11.2-15.7); Immature Grans % 0.1 %; MCH 31.0 pg (27.0-33.0); MCHC 32.9 % (32.0-36.0); MCV 94 fL (80-95); MPV 10.0 fL (8.0-11.0); Platelet Count 219 10^3/uL (130-400); RBC 4.58 10^6/uL (3.93-5.22); RDW 12.2 % (11.7-14.6); RDW-SD 42.5 fL; WBC 7.70 10^3/uL (4.4-10.8)
[2025-05-19 10:06] LABS: Hemoglobin A1C 5.5 % (<5.7)
[2025-05-19 10:33] LABS: ALT 15 U/L (10-49); AST 20 U/L (<34); Albumin 4.4 g/dL (3.2-5.0); Alkaline Phosphatase 84 U/L (46-116); Anion Gap 4 mmol/L (3-11); BUN 9 mg/dL (9-23); Bilirubin, Total 0.40 mg/dL (0.2-1.2); CO2 30.0 mmol/L (20.0-31.0); Calcium 9.2 mg/dL (8.3-10.6); Chloride 112 mmol/L (98-107); Cholesterol 140 mg/dL (<200); Glucose 126 mg/dL (74-106); HDL Cholesterol 41 mg/dL (>40); Potassium 4.3 mmol/L (3.5-5.1); Sodium 146 mmol/L (136-145); Total Protein 6.8 g/dL (5.7-8.2)
== END 2025-05-19 10:29 | disposition home or self-care (01) ==
LOC: LBO 10:28
PROVIDERS: PCP Nurse Practitioner Family; Visit Provider Nurse Practitioner Family
DX: Z00.00 Encounter for general adult medical examination without abnormal findings (principal)
CPT/HCPCS: 36415; 80053; 80061; 83036; 85025

== ENCOUNTER → 2025-06-09 14:31 | Outpatient (CLI) | payer OTHER, SELFPAY ==
--- NOTE | 2025-06-09 07:30 | DI.MAMMO_ITS ---
Exam(s) MAMMO SCREENING EXAM: MAMMO SCREENING CLINICAL HISTORY: screening,Z12.39. TECHNIQUE: Bilateral full field digital CC and MLO mammographic images were obtained with 3D tomosynthesis and utilizing computer aided detection (CAD). COMPARISON: Prior mammograms were reviewed. FINDINGS: There has been no significant change in the appearance and distribution of the fibroglandular tissue. There are no CAD designations. There are no new spiculated masses nor malignant appearing microcalcification groups. Noncalcified nodule in the left breast located 5 cm in from the nipple measuring approximately 7 x 6 mm is unchanged from prior mammograms dating back to at least 2017 and therefore benign. There is no significant architectural distortion nor skin thickening-retraction. IMPRESSION: No radiographic evidence of malignancy. BI-RADS Category 1 - Negative Breast Density - Category B - There are scattered areas of fibroglandular density. Breast density Category C or D implies that the patient has dense breast tissue. Dense breast tissue can make it harder to find cancer on a mammogram. Dense breast tissue is also associated with an increased risk of breast cancer. This information about the result of the mammogram report was provided to the patient to raise their awareness. Use this report when you speak with the patient about their risks for breast cancer, which includes their family history. At that time, you may recommend additional screening tests (Ultrasound or MRI) as these tests may add significant information. A negative radiographic report should not delay biopsy if a dominant or clinically suspicious mass is present. Up to ten percent of cancers are not identified on mammography. A negative report may reinforce clinical impression. Adenosis and dense breasts may obscure an underlying neoplasm. False positive reports average 6 to 10%. Patient will receive a letter notifying them of these results.
--- NOTE | 2025-06-09 07:30 | DI.CTLCSR_ITS ---
Exam(s) CT CHEST LUNG CANCER SCREEN EXAM: CT CHEST LUNG CANCER SCREEN CLINICAL HISTORY: Screening for lung cancer,CIGARETTE SMOKER, F17.210 TECHNIQUE: Imaging Protocol: Axial computed tomography images with coronal and sagittal reformatted images were created and reviewed. Low dose screening protocol. COMPARISON: CT CT CHEST LUNG CANCER SCREEN from 06/07/2024 FINDINGS: Tracheobronchial tree: No bronchiectasis or mucus plugging. Mediastinum and Narcisa: No dominant adenopathy or fluid collection. Pulmonary parenchyma: No consolidation or dominant measurable mass. Biapical scarring. Emphysematous changes at the apices and posterior lung bases, mainly paraseptal. Lung Nodules: None. Pleura: No effusion. No pneumothorax. Heart: The heart is not dilated. Mild coronary artery calcifications are seen. No pericardial effusion. Aorta: Thoracic aorta non-dilated. Mild atherosclerotic changes. Upper abdomen: Unremarkable. Bones: Unremarkable for age. Soft Tissues: Unremarkable. IMPRESSION: No suspicious pulmonary nodules. Lung RADS Cat 1 - Negative: No nodules and definitely benign nodules Lung-RADS 1.0 CATEGORIES: Category 0 - Prior chest CT exam(s) being located for comparison. Category 1 - Annual screening in 12 months. No nodules or definitely benign nodules. Category 2 - Annual screening in 12 months. Benign appearance. Nodules with low likelihood of becoming active cancer. Category 3 - 6-month follow-up. Probably benign. Short-term follow-up suggested. Nodules with low likelihood of becoming active cancer. Category 4A - 3-month follow-up and CT/PET if >8 mm in size. Suspicious finding. Findings which require additional testing. Category 4B - Findings which require additional testing and tissue sampling. Category 4X - Category 3 or 4 nodules with additional features or imaging findings that increases the suspicion of malignancy. Modifier S- Potentially clinically significant findings (non lung cancer) RADIATION DOSE DELIVERED: Total DLP DATA REPOSITORY: All CT scans at this facility are submitted to the National Radiology Data Registry (NRDR) Dose Index Registry (DIR) with the [employer] (ACR). RADIATION OPTIMIZATION: All CT scans at this facility use at least one of these dose optimization techniques: automated exposure control; mA and/or kV adjustment per patient size (includes targeted exams where dose is matched to clinical indication); or iterative reconstruction.
== END ==
LOC: DI 14:31
PROVIDERS: PCP Nurse Practitioner Family; Visit Provider Nurse Practitioner Family
DX: Z12.31 Encounter for screening mammogram for malignant neoplasm of breast (principal); F17.210 Nicotine dependence, cigarettes, uncomplicated
CPT/HCPCS: 71271; 77063; 77067

== ENCOUNTER 2025-06-09 14:37 | Outpatient (CLI) | payer OTHER, SELFPAY ==
[2025-06-09 15:16] LABS: Anion Gap 6.6 mmol/L (3-11); BUN 7 mg/dL (9-23); CO2 27.4 mmol/L (20.0-31.0); Calcium 9.0 mg/dL (8.3-10.6); Chloride 110 mmol/L (98-107); Glucose 91 mg/dL (74-106); Potassium 4.1 mmol/L (3.5-5.1); Sodium 144 mmol/L (136-145)
== END 2025-06-09 14:38 | disposition home or self-care (01) ==
LOC: LBO 14:39
PROVIDERS: PCP Nurse Practitioner Family; Visit Provider Nurse Practitioner Family
DX: E87.0 Hyperosmolality and hypernatremia (principal)
CPT/HCPCS: 36415; 80048